=== PATIENT | female | born 1930 | race Caucasian/White ===

== ENCOUNTER 2017-04-24 19:36 | Inpatient (IN) | payer MEDICARE, MEDICAID ==
[~2017-04-24] VITALS: Ht 162.6 cm; Wt 61.7 kg
[2017-04-24] MEDS ORDERED: ALBUTEROL SULFATE 2.5 MG/3 ML NEBU NEB ONE (20:00)
[2017-04-24] MEDS ORDERED: PIPERACILLIN SODIUM/TAZOBACTAM 3.375 G in IV DEXTROSE 5% 50 ML IV ONE (20:00)
[2017-04-24] MEDS ORDERED: AZITHROMYCIN IV 500 MG in IV DEXTROSE 5% 250 ML IV ONE (20:00)
[2017-04-24] MEDS ORDERED: IV NORMAL SALINE 500 ML BAG IV ONE (20:00)
[2017-04-24 20:05] LABS: BASOPHILS % (AUTO) 0.4 % (0.0-2.0); EOSINOPHILS # (AUTO) 0.3 K/uL (0.0-0.7); EOSINOPHILS % (AUTO) 2.6 % (0.0-7.0); HEMATOCRIT 34.4 % (37-47); HEMOGLOBIN 11.2 G/DL (12.0-16.0); LYMPHOCYTES # (AUTO) 1.7 K/UL (0.8-4.8); LYMPHOCYTES % (AUTO) 14.9 % (20.5-51.5); MEAN CORPUSCULAR HEMOGLOBIN 28.7 UUG (27.0-31.0); MEAN CORPUSCULAR HGB CONC 33 g/dL (32.0-37.0); MEAN CORPUSCULAR VOLUME 87.9 FL (81.0-99.0); MONOCYTES % (AUTO) 8.5 % (0.0-11.0); NEUTROPHILS # (AUTO) 8.2 K/UL (1.8-8.9); NEUTROPHILS % (AUTO) 73.6 % (38.5-71.5); PLATELET COUNT (AUTO) 279 K/UL (150-450); RED BLOOD CELL COUNT(AUTO) 3.92 MIL/UL (4.2-5.4); WHITE BLOOD COUNT (AUTO) 11.2 K/UL (4.0-11.2)
--- NOTE | 2017-04-24 20:05 | NUR ---
Pt biba from facility for evaluation for pna. Pt changed into gown and placed on monitor. Pt ST. Pt tachypnic and requires 2L NC to maintain O2 sats > 95%. Lungs diminished in bases with wheezes noted to upper. Pt intermittely yelling out due to pain. Dr. Alvarado at bedside. IV established, labs drawn and sent. Fluid bolus started.
[2017-04-24] MEDS ORDERED: CALC500T3 PO (20:07)
[2017-04-24] MEDS ORDERED: VIT1CAPS9 PO (20:07)
[2017-04-24] MEDS ORDERED: CHOL3000 PO (20:07)
[2017-04-24] MEDS ORDERED: MULT1TAB11 PO (20:07)
[2017-04-24] MEDS ORDERED: DOCU-141 PO (20:07)
[2017-04-24] MEDS ORDERED: ESCI5TAB PO (20:07)
[2017-04-24] MEDS ORDERED: LISI-607 PO (20:07)
[2017-04-24] MEDS ORDERED: AMIN30LI27 PO (20:07)
[2017-04-24] MEDS ORDERED: PRAV20TA PO (20:07)
[2017-04-24] MEDS ORDERED: ACET-73 PO (20:07)
[2017-04-24] MEDS ORDERED: ALEN70TA3 PO (20:07)
[2017-04-24] MEDS ORDERED: IPRA3AMP IH ×2 (20:07)
[2017-04-24] MEDS ORDERED: ROPI1TAB2 PO (20:07)
[2017-04-24] MEDS ORDERED: MIRT15TA PO (20:07)
[2017-04-24] MEDS ORDERED: RIVA1PAT TD (20:07)
[2017-04-24] MEDS ORDERED: TRAM50TA2 PO (20:07)
[2017-04-24] MEDS ORDERED: MAG355OR32 PO (20:07)
[2017-04-24] MEDS ORDERED: PANT20TA2 PO (20:07)
[2017-04-24] MEDS ORDERED: CYAN10009 PO (20:07)
[2017-04-24] MEDS ORDERED: PIPERACILLIN/TAZOBACTAM/D5W 50 ML IV ONE (20:14)
[2017-04-24 20:15] LABS: CARBON DIOXIDE 26 mmol/L (21-32); CHLORIDE 99 mmol/L (98-107); CREATININE 1.3 mg/dL (0.6-1.3); POTASSIUM 5.9 mmol/L (3.5-5.1); UREA NITROGEN, BLOOD 49 mg/dL (7-18)
[2017-04-24] MEDS ORDERED: MORPHINE SULFATE 4 MG/1 ML DISP.SYRIN IV ONE (20:15)
[2017-04-24] MEDS ORDERED: HALOPERIDOL LACTATE 5 MG/1 ML VIAL IV ONE (20:15)
[2017-04-24] MEDS ORDERED: ALBUTEROL SULFATE 2.5 MG/3 ML NEBU ONE (20:21)
[2017-04-24 20:25] LABS: GLUCOSE 322 mg/dL (74-106)
--- NOTE | 2017-04-24 20:25 | NUR ---
Pt medicated for her discomfort. Will monitor for the effects of the medication. Pt repositioned for comfort. Family remains at bedside.
[2017-04-24 20:28] LABS: ALANINE AMINOTRANSFERASE 41 U/L (14-59); ALKALINE PHOSPHATASE 104 U/L (50-136); ASPARTATE AMINOTRANSFERASE 22 U/L (15-37); BILIRUBIN,DIRECT 0.1 mg/dL (0.0-0.2); BILIRUBIN,TOTAL 0.5 mg/dL (0.2-1.0); TOTAL PROTEIN, SERUM 7.4 g/dL (6.4-8.2)
[2017-04-24] MEDS ORDERED: IV NORMAL SALINE 1000 ML BAG IV ONE (20:30)
[2017-04-24] MEDS ORDERED: MORPHINE SULFATE 10 MG/1 ML DISP.SYRIN ONE (20:30)
[2017-04-24] MEDS ORDERED: HALOPERIDOL LACTATE 5 MG/1 ML VIAL ONE (20:33)
[2017-04-24] MEDS ORDERED: AZITHROMYCIN 500 MG VIAL IV ONE (20:45)
--- NOTE | 2017-04-24 20:45 | NUR ---
First ABT infusion completed, no adverse reaction noted. Second ABT infusion started. Will monitor for effects of medication. Pain appears to have improved with medications. Pt no longer moaning or yelling out. Pt no longer restless. Resting in position of comfort for self. Daughter remains at bedside.
[2017-04-24] MEDS ORDERED: IOHEXOL 350 100 ML INFUS..BTL ONE (21:40)
[2017-04-24] MEDS ORDERED: NORMAL SALINE FLUSH 10 ML DISP.SYRIN ONE (21:40)
[2017-04-24] MEDS ORDERED: IV NORMAL SALINE 250 ML IV ONE (21:41)
--- NOTE | 2017-04-24 21:50 | NUR ---
Second ABT infusion completed, no adverse reactions noted. Awaiting CT.
--- NOTE | 2017-04-24 22:10 | NUR ---
Pt to CT via enid
--- NOTE | 2017-04-24 22:30 | NUR ---
Pt returned from CT via gurney. Fluid bolus completed. Pt resting in position of comfort for self. Family at bedside.
[2017-04-24] MEDS ORDERED: ASPIRIN 81 MG TAB.CHEW PO ONE (23:15)
[2017-04-24] MEDS ORDERED: NITROGLYCERIN OINT 1 GM PACKET TP ONE ×2 (23:15→23:44)
[2017-04-24] MEDS ORDERED: RACEPINEPHRINE HCL 2.25% 0.5 ML NEBU NEB ONE (23:30)
--- NOTE | 2017-04-24 23:30 | NUR ---
Dr. Holman paged for Dr. Alvarado
--- NOTE | 2017-04-24 23:40 | NUR ---
RT at bedside for breathing treatment for increased wheezing noted
[2017-04-24] MEDS ORDERED: ASPIRIN 81 MG TAB.CHEW ONE (23:44)
[2017-04-24] MEDS ORDERED: RACEPINEPHRINE HCL 2.25% 0.5 ML NEBU ONE (23:47)
--- NOTE | 2017-04-24 23:51 | NUR ---
Dr. Alvarado spoke with Dr. Holman
[2017-04-25] VITALS (9 sets, daily range): BP systolic 101–136; BP diastolic 47–92
--- NOTE | 2017-04-25 00:07 | NUR ---
Suctioning done by RT. Possible food removed by suctioning.
[2017-04-25] MEDS ORDERED: ALBUTEROL SULFATE 2.5 MG/ 0.5 ML NEBU NEB ONE (00:15)
[2017-04-25] MEDS ORDERED: ALBUTEROL SULFATE 2.5 MG/3 ML NEBU ONE ×2 (00:23→00:32)
--- NOTE | 2017-04-25 00:25 | NUR ---
Dr. Alvarado spoke with Dr. Ontiveros for pulmonary consult.
--- NOTE | 2017-04-25 00:35 | NUR ---
Report called to DIOR Robin. Preparing to transfer pt to the floor.
--- NOTE | 2017-04-25 01:16 | NUR ---
received fROM ER , from [facility] .dx; of sepsis.patient confused unable to given information . admission assessment done and admission data collected from chart . called vinh huang for orders . connected patient to monitor and oriented with equipment . no respiratory distress noted breathing even and unlabored .hob up. Otero catheter inserted and done aseptically .fax medication orders to pharmacy . no belongings noted
[2017-04-25] MEDS ORDERED: IV NS 1000 ML 1,000 ML IV ONE ×2 (01:45→02:30)
[2017-04-25] MEDS ORDERED: CHOLECALCIFEROL 1,000 UNIT TABLET PO SCH ×2 (02:00→09:00)
[2017-04-25] MEDS ORDERED: ENOXAPARIN SODIUM 40 MG/0.4 ML DISP.SYRIN SQ SCH (02:00)
[2017-04-25] MEDS ORDERED: ONDANSETRON 4 MG/2 ML VIAL IV PRN (02:00)
[2017-04-25] MEDS ORDERED: ENOXAPARIN SODIUM 40 MG/0.4 ML DISP.SYRIN SQ ONE (03:24)
[2017-04-25] MEDS ORDERED: PIPERACILLIN/TAZOBACTAM/D5W 3.375 G in PREMIXED 1 EACH IV SCH (04:00)
--- NOTE | 2017-04-25 04:30 | NUR ---
RECD PT FR CCU VIA BED,PT AWAKE, ALERT X2,IN NO ACUTE RESP DISTRESS, IV SITE ON RT ARM INTACT AND NO SSX OF INFILTRATION, IV FLUIDS INFUSING FAIRLY WELL.O2@ 3L/MIN VIA NC , HOB UP 30 DEGREES, RAILS UP , BED IN LOW POSITION. CALL LITE W/I REACH.KEPT CLEAN AND COMFORTABLE.
[2017-04-25] MEDS ORDERED: PIPERACILLIN/TAZOBACTAM/D5W 50 ML IV ONE (05:27)
--- NOTE | 2017-04-25 06:20 | NUR ---
RESTING QUIETLY IN BED, IN NO ACUTE DISTRESS, TELE READING SINUS TACH 105-110.NO COMPLAINTS OF PAIN PRESENTED.
--- NOTE | 2017-04-25 06:22 | NUR ---
F/C PATENT AND INTACT DRAINING TO IRMA URINE.
--- NOTE | 2017-04-25 07:49 | NUR ---
PT IS WHEEZING, PAGED DR REDMOND X2, AWAITING RESPONSE.
--- NOTE | 2017-04-25 07:52 | NUR ---
PER DR. REDMOND PUT IN ORDER FOR BREATHING TREATMENT SCHEDULED Q4H ALBUTEROL AND ATROPINE, ORDER NOTED CARRIED OUT
[2017-04-25] MEDS: ALBUTEROL SULFATE 2.5 MG/ 0.5 ML NEBU NEB SCH ×5 (08:00→22:30)
[2017-04-25] MEDS ORDERED: VANCOMYCIN IV 1 G in PREMIXED 0 EACH IV ONE (08:00)
[2017-04-25] MEDS: Z GUARD REMEDY PASTE 57 GM TUBE TOP SCH ×2 (08:11→20:48)
[2017-04-25 08:18] LABS: BASOPHILS % (AUTO) 0.2 % (0.0-2.0); EOSINOPHILS # (AUTO) 0.2 K/uL (0.0-0.7); EOSINOPHILS % (AUTO) 2.5 % (0.0-7.0); HEMATOCRIT 28.1 % (31.2-41.9); HEMOGLOBIN 9.7 g/dL (10.9-14.3); LYMPHOCYTES # (AUTO) 1.4 K/uL (20.0-40.0); LYMPHOCYTES % (AUTO) 14.4 % (20.5-51.5); MEAN CORPUSCULAR HEMOGLOBIN 30.8 uug (24.7-32.8); MEAN CORPUSCULAR HGB CONC 35 g/dL (32.3-35.6); MEAN CORPUSCULAR VOLUME 88.9 fL (75.5-95.3); MONOCYTES # (AUTO) 0.9 K/uL (2.0-10.0); MONOCYTES % (AUTO) 9.5 % (0.0-11.0); NEUTROPHILS % (AUTO) 73.4 % (38.5-71.5); PLATELET COUNT (AUTO) 189 K/uL (179-408); RED BLOOD CELL COUNT(AUTO) 3.16 MIL/uL (3.63-4.92); WHITE BLOOD COUNT (AUTO) 9.6 K/uL (3.8-11.8)
[2017-04-25 08:23] LABS: ALANINE AMINOTRANSFERASE 34 U/L (14-59); ALKALINE PHOSPHATASE 80 U/L (50-136); ASPARTATE AMINOTRANSFERASE 21 U/L (15-37); BILIRUBIN,TOTAL 0.7 mg/dL (0.2-1.0); CARBON DIOXIDE 22 mmol/L (21-32); CHLORIDE 107 mmol/L (98-107); CREATININE 1.2 mg/dL (0.6-1.3); GLUCOSE 210 mg/dL (74-106); MAGNESIUM 1.9 mg/dL (1.8-2.4); PHOSPHOROUS 3.2 mg/dL (2.5-4.9); POTASSIUM 4.9 mmol/L (3.5-5.1); TOTAL PROTEIN, SERUM 6.2 g/dL (6.4-8.2); UREA NITROGEN, BLOOD 36 mg/dL (7-18)
[2017-04-25] MEDS: IPRATROPIUM BROMIDE 0.5 MG/2.5 ML NEBU NEB SCH ×5 (08:39→22:30)
[2017-04-25] MEDS ORDERED: MAG HYDROX/AL HYDROX/SIMETH 30 ML LIQUID UDC PO PRN (08:45)
[2017-04-25] MEDS ORDERED: ACETAMINOPHEN ES 500 MG TABLET PO PRN (08:45)
[2017-04-25] MEDS ORDERED: MISCELLANEOUS MED XX PRN ×2 (08:45)
[2017-04-25] MEDS ORDERED: TRAMADOL HCL 50 MG TABLET PO PRN (08:45)
[2017-04-25] MEDS ORDERED: FUROSEMIDE 20 MG/2 ML VIAL IV ONE (09:00)
[2017-04-25] MEDS: DOCUSATE SODIUM 100 MG CAPSULE PO SCH ×2 (09:00→16:12)
[2017-04-25] MEDS: LISINOPRIL 5 MG TABLET PO SCH (09:00)
[2017-04-25] MEDS: CYANOCOBALAMIN 1,000 MCG TABLET PO SCH (09:35)
[2017-04-25] MEDS: RIVASTIGMINE 4.6 MG PATCH TD SCH (09:35)
[2017-04-25] MEDS: MULTIVIT, IRON, MIN NO. 8, FA TABLET PO SCH (09:35)
[2017-04-25] MEDS: methylPREDNISolone SOD SUCC 125 MG/2 ML VIAL IV SCH ×3 (09:36→21:16)
[2017-04-25] MEDS: ACETAMINOPHEN 325 MG TABLET PO PRN (09:36)
[2017-04-25] MEDS: CALCIUM CARBONATE 500 MG TABLET PO SCH (09:36)
[2017-04-25] MEDS: PIPERACILLIN/TAZOBACTAM/D5W 2.25 G in PREMIXED 1 EACH IV SCH ×3 (11:56→23:57)
--- NOTE | 2017-04-25 15:22 | NUR ---
PT'S FAMILY WANTS TO TALK TO DR. REDMOND, PAGED DR TO TALK TO THE FAMILY, AWAITING RESPONSE
[2017-04-25] MEDS: PROTEIN SUPPLEMENT (PROSTAT) 30 ML LIQUID PO SCH (16:15)
--- NOTE | 2017-04-25 16:38 | NUR ---
Clinical Pharmacy Note: Vancomycin Pharmacy to Dose Subjective: To start vanco in this 86 y/o female for sepsis unknown source Objective: height 162cm weight 68 kg BUN 49 Scr 1.3 Wbc 11.2 temp 98.8 Assessment/Plan Dosed one gram vanco today at 0800. As renal function may not be stable and due to advanced age, will dose per level for now. random level ordered with am labs tomorrow. will check level and re-dose as needed. Will follow
--- NOTE | 2017-04-25 19:25 | NUR ---
PT IS LAYING IN BED COMFORTABLY. NO S/S OF RESPIRATORY DISTRESS NOTED. NO PAIN NOTED. IV INTACT/PATENT. ALL SAFETY NEEDS ARE MET.
--- NOTE | 2017-04-25 20:00 | NUR ---
PATIENT AWAKE, CONFUSED,FAMILY AT BEDSIDE,NO SOB NOTED, PATIENT RECEIVED BREATHING TREATMENT BY R.T. WITH GOOD RESULT, NO CONGESTION NOTED,STABLE ON O2 3L/M VIA N/C, ASPIRATION PRECAUTIONS, HOB ELEVATED,NEEDS ATTENDED.
[2017-04-25] MEDS: ESCITALOPRAM OXALATE 10 MG TABLET PO SCH (20:47)
[2017-04-25] MEDS: MIRTAZAPINE 15 MG TABLET PO SCH (20:48)
[2017-04-25] MEDS: ropiniROLE 1 MG TABLET PO SCH (20:48)
[2017-04-25] MEDS: ENOXAPARIN SODIUM 40 MG/0.4 ML DISP.SYRIN SQ SCH (20:51)
[2017-04-25] MEDS ORDERED: ATORVASTATIN 10 MG TABLET PO SCH (21:00)
--- NOTE | 2017-04-25 21:15 | NUR ---
patient was seen by Dr. Woody .for cardiology consult,Sinus tachycardia on monitor.
[2017-04-26] VITALS: BP 117/59
--- NOTE | 2017-04-26 00:05 | NUR ---
patient is asleep ,afebrile,no wheezing received breathing treatment,no distress.
[2017-04-26] MEDS: IPRATROPIUM BROMIDE 0.5 MG/2.5 ML NEBU NEB SCH ×6 (02:30→23:10)
[2017-04-26] MEDS: ALBUTEROL SULFATE 2.5 MG/ 0.5 ML NEBU NEB SCH ×6 (02:30→23:10)
[2017-04-26 04:00] VITALS: BP 117/54
--- NOTE | 2017-04-26 05:50 | NUR ---
patient slept well, vital signs stable,no sob,o2 sat 98% on o2 3l/m,decrease o2 to 2l/m via n/c,f/c drainage clear yellowish urine.
[2017-04-26] MEDS: PIPERACILLIN/TAZOBACTAM/D5W 2.25 G in PREMIXED 1 EACH IV SCH ×3 (05:56→17:08)
[2017-04-26] MEDS: methylPREDNISolone SOD SUCC 125 MG/2 ML VIAL IV SCH ×2 (05:56→20:09)
[2017-04-26] MEDS: PANTOPRAZOLE SODIUM 40 MG TABLET.DR PO SCH (05:56)
--- NOTE | 2017-04-26 08:00 | NUR ---
AWAKE ALERT AND VERBALLY RESPONSIVE BUT CONFUSED X3, DAUGHTER AT BEDSIDE. CONTINUE WITH NINFA MONITORING, SR/ST ON MONITOR
[2017-04-26 08:02] VITALS: BP 121/53
[2017-04-26] MEDS: CALCIUM CARBONATE 500 MG TABLET PO SCH (08:24)
[2017-04-26] MEDS: BETA CAROTENE/VIT C & E/MIN TABLET PO SCH (08:24)
[2017-04-26] MEDS: MULTIVIT, IRON, MIN NO. 8, FA TABLET PO SCH (08:24)
[2017-04-26] MEDS: RIVASTIGMINE 4.6 MG PATCH TD SCH (08:24)
[2017-04-26] MEDS: DOCUSATE SODIUM 100 MG CAPSULE PO SCH ×2 (08:24→17:07)
[2017-04-26] MEDS: PROTEIN SUPPLEMENT (PROSTAT) 30 ML LIQUID PO SCH ×2 (08:24→17:08)
[2017-04-26] MEDS: CYANOCOBALAMIN 1,000 MCG TABLET PO SCH (08:24)
[2017-04-26] MEDS: LISINOPRIL 5 MG TABLET PO SCH (08:25)
[2017-04-26] MEDS: Z GUARD REMEDY PASTE 57 GM TUBE TOP SCH ×2 (08:26→20:13)
[2017-04-26 09:00] VITALS: BP 129/56
[2017-04-26] MEDS ORDERED: ALENDRONATE SODIUM 70 MG TABLET PO SCH (09:00)
[2017-04-26] MEDS ORDERED: VANCOMYCIN IV 750 MG in IV DEXTROSE 5% 250 ML IV SCH (10:00)
--- NOTE | 2017-04-26 12:00 | NUR ---
SEEN BY DR MACK SPOKE WITH DAUGHTER REGARDING PLAN OF CARE SEE NOTES
[2017-04-26] MEDS: ACETAMINOPHEN 325 MG TABLET PO PRN (14:44)
--- NOTE | 2017-04-26 14:57 | NUR ---
Clinical Pharmacy Note: Vancomycin Pharmacy to Dose Subjective: To continue vanco in this 86 y/o female for sepsis unknown source Objective: height 162cm weight 68 kg BUN 36 Scr 1.2 Wbc 9.6 temp 98.9 random with am labs today 8.7 Assessment/Plan As renal function appears stable for now and random this am ok, will start schedule or 750mg q27hr for estimated trough of 15.15. First dose today at 1000. Will check trough before 4ths cheduled dose (not ordered yet). Will dose per level again if renal function to become unstable. Will follow
[2017-04-26 15:16] VITALS: BP 120/51
--- NOTE | 2017-04-26 17:52 | NUR ---
SEEN BY DR MIRELES CHANGED STATUS TO TELE
--- NOTE | 2017-04-26 19:00 | NUR ---
RECD PT IN BED,AWAKE,ALERT X2, DAUGHTER AT BEDSIDE,O2@ 2L/MIN VIA NC.NO ACUTE DISTRESS NOTED.NEEDS ATTENDED TO,REMAINS ON A SPECIALTY MATTRESS,SKIN CLEAR AND INTACT, REPOSITIONED FOR COMFORT.
[2017-04-26 20:00] VITALS: BP 145/47
[2017-04-26] MEDS: LACTOBACILLUS RHAMNOSUS GG 1 EACH CAPSULE PO SCH (20:09)
[2017-04-26] MEDS: ESCITALOPRAM OXALATE 10 MG TABLET PO SCH (20:10)
[2017-04-26] MEDS: MIRTAZAPINE 15 MG TABLET PO SCH (20:11)
[2017-04-26] MEDS: ropiniROLE 1 MG TABLET PO SCH (20:11)
[2017-04-26] MEDS: ENOXAPARIN SODIUM 40 MG/0.4 ML DISP.SYRIN SQ SCH (20:13)
[2017-04-26] MEDS: TRAMADOL HCL 50 MG TABLET PO PRN ×2 (20:15→21:56)
--- NOTE | 2017-04-26 21:58 | NUR ---
MEDICATED W TRAMADOL FOR HEADACHE LEVEL 8, SCREAMING INTERMITTENTLY, SCREAMING INTERMITTENTLY, ALLOWED PT TO VERBALIZE FEELINGS AND PROVIDED ACTIVE LISTENING.SLEPT ON AND OFF.
[2017-04-27] MEDS: TRAMADOL HCL 50 MG TABLET PO PRN (00:21)
[2017-04-27 00:22] VITALS: BP 132/65
[2017-04-27] MEDS: PIPERACILLIN/TAZOBACTAM/D5W 2.25 G in PREMIXED 1 EACH IV SCH ×4 (00:24→17:03)
[2017-04-27] MEDS: ALBUTEROL SULFATE 2.5 MG/ 0.5 ML NEBU NEB SCH ×6 (02:35→23:26)
[2017-04-27] MEDS: IPRATROPIUM BROMIDE 0.5 MG/2.5 ML NEBU NEB SCH ×6 (02:35→23:26)
[2017-04-27 05:19] VITALS: BP 128/47
[2017-04-27] MEDS: ACETAMINOPHEN 325 MG TABLET PO PRN (05:32)
[2017-04-27] MEDS: PANTOPRAZOLE SODIUM 40 MG TABLET.DR PO SCH (05:51)
--- NOTE | 2017-04-27 06:10 | NUR ---
AM CARE RENDERED, KEPT COOL AND COMFORTABLE,TYLENOL 650 MG GIVEN ,FOR MILD GEN PAIN AND FEVER.NOTHING UNUSUAL NOTED.
[2017-04-27 07:39] LABS: BASOPHILS % (AUTO) 0.1 % (0.0-2.0); EOSINOPHILS % (AUTO) 0.1 % (0.0-7.0); HEMATOCRIT 27.8 % (31.2-41.9); HEMOGLOBIN 9.3 g/dL (10.9-14.3); LYMPHOCYTES # (AUTO) 1.4 K/uL (20.0-40.0); LYMPHOCYTES % (AUTO) 14.8 % (20.5-51.5); MEAN CORPUSCULAR HEMOGLOBIN 30.1 uug (24.7-32.8); MEAN CORPUSCULAR HGB CONC 34 g/dL (32.3-35.6); MEAN CORPUSCULAR VOLUME 89.6 fL (75.5-95.3); MONOCYTES # (AUTO) 0.7 K/uL (2.0-10.0); MONOCYTES % (AUTO) 7.6 % (0.0-11.0); NEUTROPHILS # (AUTO) 7.3 K/uL (1.8-8.9); NEUTROPHILS % (AUTO) 77.4 % (38.5-71.5); PLATELET COUNT (AUTO) 179 K/uL (179-408); RED BLOOD CELL COUNT(AUTO) 3.11 MIL/uL (3.63-4.92); WHITE BLOOD COUNT (AUTO) 9.4 K/uL (3.8-11.8)
--- NOTE | 2017-04-27 07:39 | NUR ---
RECEIVED FROM NOC SHIFT; A/O X2-3. SLEEPY BUT EASILY AROUSABLE. NO S/S OF ANY ACUTE DISTRESS NOTED. CONT ON PUREE WITH THICKENED LIQUID, RESP UNLAB AND CONT ON RT TX PER MD ORDER. CONT ON TELE MONITORING AT THIS SR. WILL CONT TO MONITOR AT THIS TIME
[2017-04-27 07:45] LABS: CARBON DIOXIDE 26 mmol/L (21-32); CHLORIDE 111 mmol/L (98-107); CREATININE 1.1 mg/dL (0.6-1.3); MAGNESIUM 2.3 mg/dL (1.8-2.4); PHOSPHOROUS 2.6 mg/dL (2.5-4.9); POTASSIUM 4.1 mmol/L (3.5-5.1); UREA NITROGEN, BLOOD 34 mg/dL (7-18)
[2017-04-27 08:00] VITALS: BP 139/55
[2017-04-27] MEDS: PROTEIN SUPPLEMENT (PROSTAT) 30 ML LIQUID PO SCH ×2 (08:00→17:03)
[2017-04-27 08:38] LABS: GLUCOSE 337 mg/dL (74-106)
[2017-04-27] MEDS: CYANOCOBALAMIN 1,000 MCG TABLET PO SCH (09:47)
[2017-04-27] MEDS: DOCUSATE SODIUM 100 MG CAPSULE PO SCH ×2 (09:48→17:03)
[2017-04-27] MEDS: Z GUARD REMEDY PASTE 57 GM TUBE TOP SCH ×2 (09:48→20:46)
[2017-04-27] MEDS: RIVASTIGMINE 4.6 MG PATCH TD SCH (09:48)
[2017-04-27] MEDS: BETA CAROTENE/VIT C & E/MIN TABLET PO SCH (09:49)
[2017-04-27] MEDS: LACTOBACILLUS RHAMNOSUS GG 1 EACH CAPSULE PO SCH ×2 (09:49→20:42)
[2017-04-27] MEDS: MULTIVIT, IRON, MIN NO. 8, FA TABLET PO SCH (09:49)
[2017-04-27] MEDS: CALCIUM CARBONATE 500 MG TABLET PO SCH (09:49)
[2017-04-27] MEDS: LISINOPRIL 5 MG TABLET PO SCH (09:50)
[2017-04-27] MEDS: methylPREDNISolone SOD SUCC 125 MG/2 ML VIAL IV SCH ×2 (09:51→20:41)
--- NOTE | 2017-04-27 10:30 | NUR ---
TELE D/C PER MD ORDER. DAUGHTER JIMY AT BEDSIDE PROVIDING ADDITIONAL EMOTION SUPPORT
[2017-04-27 11:25] VITALS: BP 119/52
[2017-04-27] MEDS: VANCOMYCIN IV 750 MG in IV DEXTROSE 5% 250 ML IV SCH (12:16)
--- NOTE | 2017-04-27 12:23 | NUR ---
Clinical Pharmacy Note: Vancomycin Pharmacy to Dose Subjective: To continue vanco in this 86 y/o female for sepsis unknown source Objective: height 162cm weight 65 kg BUN 34 Scr 1.1 Wbc 9.4 temp 99.6 Assessment/Plan Since srcr has decreased, will change dose from vanco 750mg IVPB q27hr to vanco 750mg IVPB q25h for estimated trough of 15.5mgc/ml. Second dose is due today at 1100. Will check trough before 4th scheduled dose (not ordered yet). Will dose per level again if renal function to become unstable. Will follow
--- NOTE | 2017-04-27 14:00 | NUR ---
RECEIVED PATIENT AND REPORT FROM REGISTRY NURSE. ASSIGNMENT CHANGED AT THIS TIME, TAKING OVER THE PATIENT AT THIS TIME. NO EVIDENCE OF DISTRESS NOTED, BED IN LOW POSITION, SIDE RAILS UP X2.
--- NOTE | 2017-04-27 14:00 | NUR ---
PATIENT CARE TRANSFER TO ANOTHER NURSE; ANURAG RN. NO S/S OF ANY ACUTE DISTRESS NOTED AT THE TIME OF NURSE CHANGE.
[2017-04-27 15:30] VITALS: BP 142/64
--- NOTE | 2017-04-27 18:40 | NUR ---
PATIENT IN BED AWAKE, NO EVIDENCE OF DISTRESS NOTED, BED IN LOW POSITION, SIDE RAILS UP X2. FAMILY AT BEDSIDE. ALL NEEDS MET.
[2017-04-27 20:00] VITALS: BP 135/47
[2017-04-27] MEDS: ropiniROLE 1 MG TABLET PO SCH (20:42)
[2017-04-27] MEDS: MIRTAZAPINE 15 MG TABLET PO SCH (20:42)
[2017-04-27] MEDS: ESCITALOPRAM OXALATE 10 MG TABLET PO SCH (20:42)
[2017-04-27] MEDS: ENOXAPARIN SODIUM 40 MG/0.4 ML DISP.SYRIN SQ SCH (20:44)
[2017-04-28] MEDS: PIPERACILLIN/TAZOBACTAM/D5W 2.25 G in PREMIXED 1 EACH IV SCH ×4 (00:32→17:29)
[2017-04-28] MEDS: ALBUTEROL SULFATE 2.5 MG/ 0.5 ML NEBU NEB SCH ×6 (03:21→22:45)
[2017-04-28] MEDS: IPRATROPIUM BROMIDE 0.5 MG/2.5 ML NEBU NEB SCH ×6 (03:21→22:45)
[2017-04-28 04:49] VITALS: BP 132/49
[2017-04-28 07:06] LABS: BASOPHILS % (AUTO) 0.2 % (0.0-2.0); EOSINOPHILS % (AUTO) 0.2 % (0.0-7.0); HEMATOCRIT 27.5 % (37-47); HEMOGLOBIN 9.3 G/DL (12.0-16.0); LYMPHOCYTES # (AUTO) 0.7 K/UL (0.8-4.8); LYMPHOCYTES % (AUTO) 8.2 % (20.5-51.5); MEAN CORPUSCULAR HEMOGLOBIN 29.6 UUG (27.0-31.0); MEAN CORPUSCULAR HGB CONC 34 g/dL (32.0-37.0); MEAN CORPUSCULAR VOLUME 88.3 FL (81.0-99.0); MONOCYTES # (AUTO) 0.3 K/UL (0.1-1.30); MONOCYTES % (AUTO) 3.3 % (0.0-11.0); NEUTROPHILS # (AUTO) 7.2 K/UL (1.8-8.9); NEUTROPHILS % (AUTO) 88.1 % (38.5-71.5); PLATELET COUNT (AUTO) 181 K/UL (150-450); RED BLOOD CELL COUNT(AUTO) 3.12 MIL/UL (4.2-5.4); WHITE BLOOD COUNT (AUTO) 8.2 K/UL (4.0-11.2)
[2017-04-28 07:30] LABS: CARBON DIOXIDE 26 mmol/L (21-32); CHLORIDE 107 mmol/L (98-107); CREATININE 0.8 mg/dL (0.6-1.3); MAGNESIUM 2.4 mg/dL (1.8-2.4); PHOSPHOROUS 3.2 mg/dL (2.5-4.9); POTASSIUM 4.5 mmol/L (3.5-5.1); UREA NITROGEN, BLOOD 31 mg/dL (7-18)
[2017-04-28] MEDS: PROTEIN SUPPLEMENT (PROSTAT) 30 ML LIQUID PO SCH ×2 (08:11→16:34)
[2017-04-28 08:43] LABS: GLUCOSE 408 mg/dL (74-106)
[2017-04-28] MEDS: PANTOPRAZOLE SODIUM 40 MG TABLET.DR PO SCH (08:44)
[2017-04-28] MEDS: methylPREDNISolone SOD SUCC 125 MG/2 ML VIAL IV SCH (08:44)
[2017-04-28] MEDS: CALCIUM CARBONATE 500 MG TABLET PO SCH (08:44)
[2017-04-28] MEDS: MULTIVIT, IRON, MIN NO. 8, FA TABLET PO SCH (08:44)
[2017-04-28] MEDS: DOCUSATE SODIUM 100 MG CAPSULE PO SCH ×2 (08:44→16:34)
[2017-04-28] MEDS: CYANOCOBALAMIN 1,000 MCG TABLET PO SCH (08:44)
[2017-04-28] MEDS: BETA CAROTENE/VIT C & E/MIN TABLET PO SCH (08:44)
[2017-04-28] MEDS: LACTOBACILLUS RHAMNOSUS GG 1 EACH CAPSULE PO SCH ×2 (08:44→21:00)
[2017-04-28] MEDS: LISINOPRIL 5 MG TABLET PO SCH (08:45)
[2017-04-28] MEDS: Z GUARD REMEDY PASTE 57 GM TUBE TOP SCH ×2 (08:46→21:56)
[2017-04-28] MEDS: RIVASTIGMINE 4.6 MG PATCH TD SCH (08:46)
--- NOTE | 2017-04-28 09:00 | NUR ---
BLOOD GLUCOSE REPORT RECEIVED FROM THE LAB IS 408 DR REDMOND AWARE WITH NO NEW ORDERS AT THIS TIME.
--- NOTE | 2017-04-28 10:25 | NUR ---
PATIENT SEEN AND EXAMINED BY DR GLEASON WITH NEW ORDERS AND NOTED.
--- NOTE | 2017-04-28 11:38 | NUR ---
DR REDMOND HERE TO SEE PATIENT AWARE THAT SHE STILL COUGHS ON AND OFF ASKED HIM IF PATIENT SHOULD HAVE A VIDEO SWALLOW TEST STATED OKAY WILL SEE PATIENT DR REDMOND IS IN THE PATIENTS ROOM AT THE MOMENT TALKING TO THE PATIENTS DAUGHTER MARTINA.
[2017-04-28 11:45] VITALS: BP 123/55
[2017-04-28] MEDS: VANCOMYCIN IV 750 MG in IV DEXTROSE 5% 250 ML IV SCH (12:14)
--- NOTE | 2017-04-28 12:23 | NUR ---
HYLTON CATH REMOVED ORDERED AND WILL OBSERVE VOIDING.
--- NOTE | 2017-04-28 12:47 | NUR ---
WOUND CARE CONSULT: PT PRESENTS WITH LEFT HEEL PURPLE INTACT AREA. PT IS INCONTINENT. CURRENT JOSÉ SCORE IS 15. PT ON FIRST STEP MATTRESS. ALL SKIN PROTECTION MEASURES IN PLACE. DISCUSSED WITH NURSING STAFF. WILL SEE PRN. NARANJO IN AGREEMENT WITH PLAN OF CARE. Addendum: 04/28/17 at 1251 by DANNY MACHADO RN Amended: Links added.
--- NOTE | 2017-04-28 14:00 | NUR ---
PATIENT SEEN AND EXAMINED BY SLT AND SHE STATED THAT THE VIDEO SWALLOW WILL BE DONE ON THE PATIENT TOMORROW PATIENTS DAUGHTER MARTINA AWARE.
[2017-04-28 16:30] VITALS: BP 141/61
--- NOTE | 2017-04-28 16:37 | NUR ---
Clinical Pharmacy Note: Vancomycin Pharmacy to Dose Subjective: To continue vanco in this 86 y/o female for sepsis unknown source Objective: height 162cm weight 65 kg BUN 31 Scr 0.8 Wbc 8.2 temp 99.7 Assessment/Plan Will continue Vancomycin 750mg IVPB q25hrs for estimated trough of 15.5mgc/ml. Third dose was given today at 1200. Will check trough before 4th scheduled dose (ordered for tomorrow at 1230). Will dose per level again if renal function to become unstable. Will follow
--- NOTE | 2017-04-28 18:45 | NUR ---
PATIENTS DAUGHTER AT THE BEDSIDE AND STATED THAT SHE FED HER MOM SOME FOOD AND SHE WAS THIRSTY SO SHE GAVE HER SOME THICKENED LIQUIDS AND EVER SINCE THEN SHE HAS BEEN WHEEZING AND HAVING DIFFICULTY BREATHING PATIENT EXAMINED AND SHE IS HAVING SOME OBVIOUS SIGNS OF HAVING DIFFICULTY BREATHING SATURATION CHECKED AND ITS 91-% ON IL/M O2 INCREASED TO 2 AND RESPIRATORY THERAPIST CALLED TO COME AND ASSIST AND GIVE HER HHN TX.
--- NOTE | 2017-04-28 18:59 | NUR ---
O2 INCREASED TO 3L/M DR REDMOND NOTIFIED WITH ORDER FOR A STATT CHEST XRAY PATIENTS DAUGHTER IS AT THE BEDSIDE.WILL CONTINUE TO OBSERVE.
--- NOTE | 2017-04-28 19:30 | NUR ---
PT ALERT AWAKE IN ROOM IN NO ACUTE DISTRESS. BP 138/55. DAUGHTER AT BEDSIDE REQUESTING PT NOT TO HAVE ANY PO MEDS AT THIS TIME DUE TO PREVIOUS SWALLOWING ASPIRATION. OXYGEN NOTED 92% ON 2L/MIN. CONTINUE TO MONITOR. 3 SIDE RAILS RAISED.
[2017-04-28 20:23] VITALS: BP 138/55
[2017-04-28] MEDS: MIRTAZAPINE 15 MG TABLET PO SCH (21:00)
[2017-04-28] MEDS ORDERED: methylPREDNISolone SOD SUCC 125 MG/2 ML VIAL IV SCH (21:00)
[2017-04-28] MEDS: ropiniROLE 1 MG TABLET PO SCH (21:00)
[2017-04-28] MEDS: ESCITALOPRAM OXALATE 10 MG TABLET PO SCH (21:00)
[2017-04-28] MEDS: methylPREDNISolone SOD SUCC 40 MG/ML VIAL IV SCH (21:53)
[2017-04-28] MEDS: ENOXAPARIN SODIUM 40 MG/0.4 ML DISP.SYRIN SQ SCH (21:54)
[2017-04-28] MEDS: PIPERACILLIN/TAZOBACTAM/D5W 3.375 G in PREMIXED 1 EACH IV SCH (22:14)
--- NOTE | 2017-04-29 01:00 | NUR ---
Pt asleep in room in no acute distress. No s/s of aspiration reaction noted. No reaction noted to current abx IV therapy at this time. Continue to monitor.
[2017-04-29] MEDS: ALBUTEROL SULFATE 2.5 MG/ 0.5 ML NEBU NEB SCH ×7 (02:31→22:56)
[2017-04-29] MEDS: IPRATROPIUM BROMIDE 0.5 MG/2.5 ML NEBU NEB SCH ×6 (02:31→22:56)
[2017-04-29 04:55] VITALS: BP 164/66
--- NOTE | 2017-04-29 05:00 | NUR ---
Pt is alert awake in no acute distress. No c/o pain or resp distress. No reaction to current abx IV medications. Pt repositioned and 3 side rails raised. Continue to monitor.
[2017-04-29] MEDS: PIPERACILLIN/TAZOBACTAM/D5W 3.375 G in PREMIXED 1 EACH IV SCH ×3 (05:11→21:31)
[2017-04-29] MEDS: PANTOPRAZOLE SODIUM 40 MG TABLET.DR PO SCH (06:32)
--- NOTE | 2017-04-29 06:32 | NUR ---
Routine Protonix PO medication held to prevent aspiration precautions.
[2017-04-29 06:40] LABS: ALANINE AMINOTRANSFERASE 50 U/L (14-59); ALKALINE PHOSPHATASE 65 U/L (50-136); ASPARTATE AMINOTRANSFERASE 18 U/L (15-37); BILIRUBIN,TOTAL 0.4 mg/dL (0.2-1.0); CARBON DIOXIDE 28 mmol/L (21-32); CHLORIDE 106 mmol/L (98-107); CREATININE 0.9 mg/dL (0.6-1.3); MAGNESIUM 2.5 mg/dL (1.8-2.4); PHOSPHOROUS 2.7 mg/dL (2.5-4.9); POTASSIUM 4.1 mmol/L (3.5-5.1); TOTAL PROTEIN, SERUM 6.5 g/dL (6.4-8.2); UREA NITROGEN, BLOOD 28 mg/dL (7-18)
[2017-04-29 06:45] LABS: GLUCOSE 420 mg/dL (74-106)
--- NOTE | 2017-04-29 06:50 | NUR ---
Pt's blood glucose noted 420 and expected due to SoluMedrol. No new orders at this time. Pt's MD aware of expected findings.
[2017-04-29 07:40] LABS: BASOPHILS % (AUTO) 0.1 % (0.0-2.0); HEMATOCRIT 28.2 % (31.2-41.9); HEMOGLOBIN 9.5 g/dL (10.9-14.3); LYMPHOCYTES # (AUTO) 0.9 K/uL (20.0-40.0); LYMPHOCYTES % (AUTO) 9.4 % (20.5-51.5); MEAN CORPUSCULAR HEMOGLOBIN 30.1 uug (24.7-32.8); MEAN CORPUSCULAR HGB CONC 34 g/dL (32.3-35.6); MONOCYTES # (AUTO) 0.8 K/uL (2.0-10.0); MONOCYTES % (AUTO) 8.3 % (0.0-11.0); NEUTROPHILS # (AUTO) 7.9 K/uL (1.8-8.9); NEUTROPHILS % (AUTO) 82.2 % (38.5-71.5); PLATELET COUNT (AUTO) 173 K/uL (179-408); RED BLOOD CELL COUNT(AUTO) 3.16 MIL/uL (3.63-4.92); WHITE BLOOD COUNT (AUTO) 9.7 K/uL (3.8-11.8)
[2017-04-29] MEDS: PROTEIN SUPPLEMENT (PROSTAT) 30 ML LIQUID PO SCH ×2 (08:00→16:52)
[2017-04-29] MEDS ORDERED: DEXTROSE 50% 50 ML DISP.SYRIN IV PRN (08:15)
--- NOTE | 2017-04-29 08:30 | NUR ---
RECEIVED PATIENT IN BED AWAKE ALERT TO SELF SEEMS MIXED UP REMAIN WITH O2 AT 3L/M BY NASAL CANULLA WITH NO SHORTNESS OF BREATH AT THIS TIME.HHN IN PROGRESS NO ACTIVE COUGHING AT THIS TIME PATIENTS DAUGHTER ELECTED FOR PATIENT NOT TO GET HER AM MEDICATIONS BUT I INSISTED ON GIVING HER THE BLOOD PRESSURE MEDICATION WITH APPLE SAUCE AND SOME THICKENED LIQUIDS AND SHE TOLERATED IT WELL.
[2017-04-29] MEDS: BETA CAROTENE/VIT C & E/MIN TABLET PO SCH (09:00)
[2017-04-29] MEDS: MULTIVIT, IRON, MIN NO. 8, FA TABLET PO SCH (09:00)
[2017-04-29] MEDS: LACTOBACILLUS RHAMNOSUS GG 1 EACH CAPSULE PO SCH ×2 (09:00→21:06)
[2017-04-29] MEDS: CALCIUM CARBONATE 500 MG TABLET PO SCH (09:00)
[2017-04-29] MEDS: CYANOCOBALAMIN 1,000 MCG TABLET PO SCH (09:00)
[2017-04-29] MEDS: DOCUSATE SODIUM 100 MG CAPSULE PO SCH ×2 (09:00→16:54)
[2017-04-29] MEDS: RIVASTIGMINE 4.6 MG PATCH TD SCH (09:03)
[2017-04-29] MEDS: methylPREDNISolone SOD SUCC 40 MG/ML VIAL IV SCH (09:04)
[2017-04-29] MEDS: LISINOPRIL 5 MG TABLET PO SCH (09:25)
[2017-04-29] MEDS: Z GUARD REMEDY PASTE 57 GM TUBE TOP SCH ×2 (09:28→21:06)
[2017-04-29 10:29] LABS: LYMPHOCYTES % (MANUAL) 10 % (20-40); METAMYELOCYTES % 1 % (0-1); NEUTROPHILS % (MANUAL) 84 % (42-75)
[2017-04-29 10:30] LABS: MONOCYTES % (MANUAL) 5 % (2-10)
[2017-04-29 11:10] VITALS: BP 142/58
[2017-04-29] MEDS: BLOOD SUGAR DIAGNOSTIC 1 EACH STRIP VI SCH ×3 (11:14→21:06)
[2017-04-29] MEDS: INSULIN REGULAR, HUMAN 300 UNIT/3 ML VIAL SQ PRN ×3 (11:16→21:10)
--- NOTE | 2017-04-29 12:15 | NUR ---
DR GREENE HERE AND SEEN PATIENT AND HE IS AWARE OF ELEVATED BLOOD GLUCOSE WITH NEW ORDERS.PATIENT WILL BE STARTED ON BLOOD SUGAR CHECKS WITH SLIDING SCALE COVERAGE WITH REGULAR INSULIN PATIENTS DAUGHTER HERE AT THE BEDSIDE AND AWARE WILL CONTINUE TO OBSERVE.
[2017-04-29] MEDS ORDERED: BARIUM SULFATE 148 GM SUSP.RECON PO ONE (13:00)
[2017-04-29] MEDS ORDERED: BARIUM SULFATE 240 ML ORAL.SUSP PO ONE (13:00)
--- NOTE | 2017-04-29 13:01 | NUR ---
DR GLEASON HERE TO SEE PATIENT AND HE SPOKE WITH PATIENTS DAUGHTER MARTINA RE POOR DETERIORATING CONDITION.PATIENT IS SCHEDULED FOR VIDEO SWALLOW TEST TODAY SHE IS AGITATED AND RESTLESS REQUESTING FOR WATER FEW DROPS OF JUICE GIVEN DAUGHTER IS AT THE BEDSIDE AT THIS TIME WILL CONTINUE TO OBSERVE.
--- NOTE | 2017-04-29 13:48 | NUR ---
Clinical Pharmacy Note: Vancomycin Pharmacy to Dose Subjective: To continue vanco in this 86 y/o female for sepsis unknown source Objective: height 162cm weight 65 kg BUN 28 Scr 0.9 Wbc 9.7 temp99.4 Vanco trough level: 7.4 Assessment/Plan Since vanco trough level is sub-therapeutic, will change vanco dose to Vancomycin 1000mg IVPB q21hrs for estimated trough of 15mgc/ml. First dose is due today at 1400. Will check trough before 4th scheduled dose (not yet ordered). Will monitor renal function & adjust the dose if needed. will follow up
--- NOTE | 2017-04-29 14:10 | NUR ---
THE SPEECH AND LANGUAGE THERAPIST HERE AND STATED THAT SHE IS WAITING FOR THE RADIOLOGIST FOR THE VIDEO STUDIES TODAY PATIENTS DAUGHTER HERE AND AWARE.
[2017-04-29] MEDS: VANCOMYCIN IV 1 G in PREMIXED 0 EACH IV SCH (14:25)
[2017-04-29 15:35] VITALS: BP 131/60
--- NOTE | 2017-04-29 16:00 | NUR ---
PATIENT PICKED UP BY BED TO RADIOLOGY DEPARTMENT FOR THE VIDEO SWALLOW STUDIES ORDERED WITH HER DAUGHTER FOLLOWING.PATIENT IS CALM AND QUIET AT THIS TIME.
--- NOTE | 2017-04-29 17:00 | NUR ---
PATIENT RETURNED AND PER THE PATIENTS DAUGHTER SHE STATED THAT THE SLT TOLD HER THAT EVERYTHING LOOKS GOOD BUT AWAITING FOR ORDERS MEANWHILE WILL CONTINUE ON PUREED DIET WITH THICKENED LIQUIDS ORDERED.
[2017-04-29] MEDS: predniSONE 20 MG TABLET PO SCH (17:11)
--- NOTE | 2017-04-29 17:39 | NUR ---
STILL NO FINAL ORDER OR NOTES FROM THE SLT OR RADIOLOGIST AT THIS TIME WILL CONTINUE ON CURRENT ORDER OF PURRED AND NECTAR THICK LIQUIDS.
--- NOTE | 2017-04-29 20:00 | NUR ---
RECEIVED PATIENT AWAKE IN BED WITH PRIVATE CAREGIVER AT BEDSIDE. PATIENT IS ALERT TO SELF. NO S/S OF PAIN OR DISCOMFORT. NO FACIAL GRIMACE NOTED. VSS. H/L INTACT AND PATENT. ON O2 2L NC SATING WELL. NO RESP. DISTRESS NOTED. ON AIR MATTRESS. BILATERAL HEELS OFF-LOADED FOR PRESSURE RELIEF. BED ALARM ON. CALL LIGHT IN REACH. ALL NEEDS ATTENDED. WILL CONTINUE TO MONITOR.
[2017-04-29 20:39] VITALS: BP 98/35
[2017-04-29] MEDS: MIRTAZAPINE 15 MG TABLET PO SCH (21:06)
[2017-04-29] MEDS: ESCITALOPRAM OXALATE 10 MG TABLET PO SCH (21:07)
[2017-04-29] MEDS: ropiniROLE 1 MG TABLET PO SCH (21:07)
[2017-04-29] MEDS: ENOXAPARIN SODIUM 40 MG/0.4 ML DISP.SYRIN SQ SCH (21:08)
[2017-04-30] MEDS: IPRATROPIUM BROMIDE 0.5 MG/2.5 ML NEBU NEB SCH ×3 (03:50→11:27)
[2017-04-30] MEDS: ALBUTEROL SULFATE 2.5 MG/ 0.5 ML NEBU NEB SCH ×3 (03:50→11:27)
[2017-04-30 04:21] VITALS: BP 148/64
[2017-04-30] MEDS: PIPERACILLIN/TAZOBACTAM/D5W 3.375 G in PREMIXED 1 EACH IV SCH ×2 (05:37→13:13)
[2017-04-30 06:05] LABS: BASOPHILS % (AUTO) 0.2 % (0.0-2.0); EOSINOPHILS # (AUTO) 0.1 K/uL (0.0-0.7); EOSINOPHILS % (AUTO) 0.9 % (0.0-7.0); HEMATOCRIT 30.2 % (31.2-41.9); HEMOGLOBIN 10.1 g/dL (10.9-14.3); LYMPHOCYTES % (AUTO) 17.4 % (20.5-51.5); MEAN CORPUSCULAR HEMOGLOBIN 29.6 uug (24.7-32.8); MEAN CORPUSCULAR HGB CONC 33 g/dL (32.3-35.6); MEAN CORPUSCULAR VOLUME 88.6 fL (75.5-95.3); MONOCYTES # (AUTO) 0.8 K/uL (2.0-10.0); MONOCYTES % (AUTO) 6.8 % (0.0-11.0); NEUTROPHILS # (AUTO) 8.4 K/uL (1.8-8.9); NEUTROPHILS % (AUTO) 74.7 % (38.5-71.5); PLATELET COUNT (AUTO) 183 K/uL (179-408); WHITE BLOOD COUNT (AUTO) 11.2 K/uL (3.8-11.8)
[2017-04-30 06:18] LABS: CARBON DIOXIDE 29 mmol/L (21-32); CHLORIDE 108 mmol/L (98-107); CREATININE 0.8 mg/dL (0.6-1.3); GLUCOSE 148 mg/dL (74-106); MAGNESIUM 2.4 mg/dL (1.8-2.4); PHOSPHOROUS 3.1 mg/dL (2.5-4.9); UREA NITROGEN, BLOOD 24 mg/dL (7-18)
[2017-04-30] MEDS: PANTOPRAZOLE SODIUM 40 MG TABLET.DR PO SCH (06:30)
[2017-04-30] MEDS: BLOOD SUGAR DIAGNOSTIC 1 EACH STRIP VI SCH ×2 (06:38→13:09)
--- NOTE | 2017-04-30 06:52 | NUR ---
PATIENT AWAKE IN BED. SLEPT WELL. REPOSITIONED TO SIDE. BILATERAL HEELS OFF-LOADED FOR PRESSURE RELIEF. VSS. NO S/S OF PAIN OR DISCOMFORT. NO FACIAL GRIMACE NOTED. NO RESP. DISTRESS NOTED. BED ALARM ON. CALL LIGHT IN REACH. ALL NEEDS ATTENDED.
[2017-04-30] MEDS ORDERED: RXVAN XX (07:15)
[2017-04-30] MEDS ORDERED: IPRA0.2S6 NEB (07:15)
[2017-04-30] MEDS ORDERED: METH4TAB21 PO (07:15)
[2017-04-30] MEDS ORDERED: LACT1CAP57 PO (07:15)
[2017-04-30] MEDS ORDERED: ALBU2.5V13 NEB (07:15)
[2017-04-30] MEDS ORDERED: VANC1PLA10 IV (07:15)
[2017-04-30] MEDS ORDERED: PIPE3.379 IV (07:15)
--- NOTE | 2017-04-30 07:49 | NUR ---
Awake, oriented to name, able to verbalize needs. O2 at 2L/NC. Aspiration precaution re enforced. Bilateral heels floated
[2017-04-30 08:18] LABS: ABG BASE EXCESS 1.8 mmol/L; ABG PH 7.484 (7.350-7.450); ABG PO2 57.4 mmHg (75.0-100.0); ABG SITE RIGHT BRACHIAL; ABG TOTAL HEMOGLOBIN 10.5 G/dL (12.0-16.0); COHb 1.4 % (0.5-1.5); MetHb 0.3 % (0.0-1.5); O2Hb 89.4 % (94.0-97.0); VENT MODE Nasal Cannula
--- NOTE | 2017-04-30 08:33 | NUR ---
ABG DONE ON 2LPM NASAL CANULA. RESULTS NON CRITICAL HOWEVER PO2 IS SLIGHTLY LOW. O2 INCREASED TO 3LPM NASAL CANULA. PT COMFORTABLE WITH NO DISTRESS
[2017-04-30] MEDS: CYANOCOBALAMIN 1,000 MCG TABLET PO SCH (08:38)
[2017-04-30] MEDS: LACTOBACILLUS RHAMNOSUS GG 1 EACH CAPSULE PO SCH (08:38)
[2017-04-30] MEDS: BETA CAROTENE/VIT C & E/MIN TABLET PO SCH (08:38)
[2017-04-30] MEDS: MULTIVIT, IRON, MIN NO. 8, FA TABLET PO SCH (08:38)
[2017-04-30] MEDS: predniSONE 20 MG TABLET PO SCH (08:38)
[2017-04-30] MEDS: CALCIUM CARBONATE 500 MG TABLET PO SCH (08:38)
[2017-04-30] MEDS: RIVASTIGMINE 4.6 MG PATCH TD SCH (08:38)
[2017-04-30] MEDS: DOCUSATE SODIUM 100 MG CAPSULE PO SCH (08:39)
[2017-04-30] MEDS: LISINOPRIL 5 MG TABLET PO SCH (08:42)
[2017-04-30] MEDS: INSULIN REGULAR, HUMAN 300 UNIT/3 ML VIAL SQ PRN ×2 (08:44→13:11)
[2017-04-30] MEDS: Z GUARD REMEDY PASTE 57 GM TUBE TOP SCH (08:45)
[2017-04-30] MEDS: PROTEIN SUPPLEMENT (PROSTAT) 30 ML LIQUID PO SCH (08:46)
[2017-04-30] MEDS: VANCOMYCIN IV 1 G in PREMIXED 0 EACH IV SCH (10:20)
[2017-04-30 11:47] VITALS: BP 122/48
[2017-04-30 12:51] LABS: LYMPHOCYTES % (MANUAL) 14 % (20-40); MONOCYTES % (MANUAL) 7 % (2-10); NEUTROPHILS % (MANUAL) 79 % (42-75)
[2017-04-30] MEDS: TRAMADOL HCL 50 MG TABLET PO PRN (13:11)
--- NOTE | 2017-04-30 14:16 | NUR ---
Clinical Pharmacy Note: Vancomycin Pharmacy to Dose Subjective: To continue vanco in this 86 y/o female for sepsis unknown source Objective: height 162cm weight 65 kg BUN 24 Scr 0.8 Wbc 11.2 temp98.4 Assessment/Plan Will continue Vancomycin 1000mg IVPB q21hrs for estimated trough of 15mgc/ml. Second dose is due today at 1100. Will check trough before 4th scheduled dose (not yet ordered). Will monitor renal function & adjust the dose if needed. will follow up
--- NOTE | 2017-04-30 15:15 | NUR ---
WITH DISCHARGE ORDER TO SNF, ARRAIGNED WITH WINDY, REPORT GIVEN TO MARISEL. DAUGHTER AT BEDSIDE AND INFORMED OF DISCHARGE. SALINE LOCK ON RIGHT FOREARM INTACT AND PATENT.
--- NOTE | 2017-04-30 15:55 | NUR ---
DISCHARGED PER GURNEY/AMBULANCE IN FAIR AND STABLE CONDITION. AFEBRILE. NOT IN DISTRESS. O2 AT 3L PER N/C. DAUGHTER AT BEDSIDE.
== END 2017-04-30 15:55 | DRG 871 ==
LOC: ER 19:37 → CCU 23:00 → TELE-TD 04-25 04:29 → TELE 04-26 17:31 → MED 04-27 09:06
PROVIDERS: ADMIT Internal Medicine; ATTEND Internal Medicine
DX: A41.9 Sepsis, unspecified organism (principal); J18.9 Pneumonia, unspecified organism; I21.A1 Myocardial infarction type 2; N17.0 Acute kidney failure with tubular necrosis; J84.9 Interstitial pulmonary disease, unspecified; G92 Toxic encephalopathy; G23.1 Progressive supranuclear ophthalmoplegia [Steele-Richardson-Olszewski]; F03.90 Unspecified dementia, unspecified severity, without behavioral disturbance, psychotic disturbance, mood disturbance, and anxiety; E09.9 Drug or chemical induced diabetes mellitus without complications; R65.20 Severe sepsis without septic shock; Y95 Nosocomial condition; E78.5 Hyperlipidemia, unspecified; N32.81 Overactive bladder; Z88.2 Allergy status to sulfonamides; E03.9 Hypothyroidism, unspecified; T38.0X5A Adverse effect of glucocorticoids and synthetic analogues, initial encounter; Y92.129 Unspecified place in nursing home as the place of occurrence of the external cause; R91.8 Other nonspecific abnormal finding of lung field; G25.1 Drug-induced tremor
CPT/HCPCS: 36415; 36600; 70030-TC; 71010; 71275; 74230; 83605; 83735; 84100; 85025; 87040; 87400; 92526; 92610; 92611; 93005; 93307; 94640; A4217; A4663; J0456; J1630; J1650; J1815; J1940; J2270; J2543; J2920; J2930; J3370; J3490; J3590; J7030; J7040; J7050; J7060; J7512; Q9967

== ENCOUNTER 2017-05-06 14:44 | Inpatient (IN) | payer MEDICARE, MEDICAID ==
[~2017-05-06] VITALS: Ht 152.4 cm; Wt 61.7 kg
[~2017-05-06 14:44] MED LIST: ACET-73 PO; ALBU2.5V13 NEB; ALEN70TA3 PO; AMIN30LI27 PO; CALC500T3 PO; CHOL3000 PO; CYAN10009 PO; DOCU-141 PO; ESCI5TAB PO; IPRA0.2S6 NEB; IPRA3AMP IH; LACT1CAP57 PO; LISI-607 PO; MAG355OR32 PO; METH4TAB21 PO; MIRT15TA PO; MULT1TAB11 PO; PANT20TA2 PO; PIPE3.379 IV; PRAV20TA PO; RIVA1PAT TD; ROPI1TAB2 PO; RXVAN XX; TRAM50TA2 PO; VANC1PLA10 IV; VIT1CAPS9 PO
[2017-05-06 15:59] LABS: BASOPHILS # (AUTO) 0.3 K/uL (0.0-8.0); BASOPHILS % (AUTO) 2.2 % (0.0-2.0); EOSINOPHILS # (AUTO) 0.3 K/uL (0.0-0.7); EOSINOPHILS % (AUTO) 2.2 % (0.0-7.0); HEMATOCRIT 30.8 % (37-47); HEMOGLOBIN 10.4 G/DL (12.0-16.0); LYMPHOCYTES # (AUTO) 0.7 K/UL (0.8-4.8); LYMPHOCYTES % (AUTO) 6.1 % (20.5-51.5); MEAN CORPUSCULAR HEMOGLOBIN 30.1 UUG (27.0-31.0); MEAN CORPUSCULAR HGB CONC 34 g/dL (32.0-37.0); MEAN CORPUSCULAR VOLUME 89.4 FL (81.0-99.0); MONOCYTES # (AUTO) 0.7 K/UL (0.1-1.30); MONOCYTES % (AUTO) 5.4 % (0.0-11.0); NEUTROPHILS # (AUTO) 10.1 K/UL (1.8-8.9); NEUTROPHILS % (AUTO) 84.1 % (38.5-71.5); PLATELET COUNT (AUTO) 185 K/UL (150-450); RED BLOOD CELL COUNT(AUTO) 3.45 MIL/UL (4.2-5.4); WHITE BLOOD COUNT (AUTO) 12.1 K/UL (4.0-11.2)
[2017-05-06 16:14] LABS: ALANINE AMINOTRANSFERASE 42 U/L (14-59); ALKALINE PHOSPHATASE 101 U/L (50-136); ASPARTATE AMINOTRANSFERASE 27 U/L (15-37); BILIRUBIN,TOTAL 0.6 mg/dL (0.2-1.0); CARBON DIOXIDE 24 mmol/L (21-32); CHLORIDE 103 mmol/L (98-107); CREATINE KINASE, TOTAL 201 U/L (26-192); CREATININE 4.8 mg/dL (0.6-1.3); GLUCOSE 277 mg/dL (74-106); POTASSIUM 4.8 mmol/L (3.5-5.1); TOTAL PROTEIN, SERUM 6.8 g/dL (6.4-8.2); UREA NITROGEN, BLOOD 25 mg/dL (7-18)
[2017-05-06 16:20] LABS: *BILIRUBIN,URIN NEGATIVE (NEGATIVE); *BLOOD, URINE 2+ (NEGATIVE); *CLARITY,URINE CLOUDY (CLEAR); *COLOR,URINE LIGHT YELLOW (YELLOW); *KETONES,URINE NEGATIVE (NEGATIVE); *PROTEIN,URINE 1+ (NEGATIVE); *UROBILINOGEN,URINE 0.2 E.U./dl (NORMAL); LEUKOCYTE ESTERASE ,URINE NEGATIVE (NEGATIVE); NITRITE, URINE NEGATIVE (NEGATIVE); PH,URINE 5.5 (5.0-8.0)
--- NOTE | 2017-05-06 16:20 | NUR ---
PATIENT HERE FROM [facility]. PATIENT IS AWAKE BUT CONFUSED. PLACED ON A MONITOR. IV ALREADY IN PLACE FROM [facility] FOR "PNEUMONIA" PER PATIENT'S DAUGHTER.
[2017-05-06 16:27] LABS: UGLUCOSE 1+ (NEGATIVE)
[2017-05-06 16:28] LABS: BACTERIA,URINE RARE /HPF (NONE SEEN); SQUAMOUS EPITHELIAL CELL,UR MANY /HPF (NONE SEEN); WBC,URINE 0-3 /HPF (0-3)
[2017-05-06] MEDS ORDERED: SIME40DR2 PO (17:29)
--- NOTE | 2017-05-06 18:01 | NUR ---
DAUGHTER AWARE OF PENDING ADMISSION.
--- NOTE | 2017-05-06 19:01 | NUR ---
WAITING FOR DR LESTER FROM DR [facility] TO CALL BACK. WE CALLED THEM TWICE. I WILL CALL AGAIN. FIRST CALL WAS OVER AN HOUR AGO.
--- NOTE | 2017-05-06 19:34 | NUR ---
BEDSIDE REPORT GIVEN TO LAUREN RADER AWARE OF PT'S CURRENT CONDITION. WILL CONTINUE FURTHER PLAN OF CARE.
[2017-05-06] MEDS ORDERED: SIMETHICONE 40 MG/0.6 ML 30 ML BOTTLE PO PRN ×2 (20:15→20:45)
[2017-05-06] MEDS ORDERED: ACETAMINOPHEN ES 500 MG TABLET PO PRN (20:15)
[2017-05-06] MEDS ORDERED: ONDANSETRON 4 MG/2 ML VIAL IV PRN (20:15)
[2017-05-06] MEDS: IV NS 1000 ML 1,000 ML IV PRN (20:19)
[2017-05-06 20:22] VITALS: BP 165/68
[2017-05-06] MEDS: MIRTAZAPINE 15 MG TABLET PO SCH (20:27)
[2017-05-06] MEDS: ACETAMINOPHEN 325 MG TABLET PO PRN (20:28)
[2017-05-06] MEDS ORDERED: SIMETHICONE 80 MG TAB.CHEW PO PRN (20:45)
[2017-05-06] MEDS: Z GUARD REMEDY PASTE 57 GM TUBE TOP SCH (20:49)
[2017-05-06] MEDS ORDERED: HOME MED MISCELLANEOUS XX SCH (21:00)
[2017-05-06] MEDS ORDERED: ESCITALOPRAM OXALATE 10 MG TABLET PO SCH (21:00)
[2017-05-06] MEDS ORDERED: ATORVASTATIN 10 MG TABLET PO SCH (21:00)
--- NOTE | 2017-05-06 21:00 | NUR ---
Admitted to Telemetry floor, Dx. Renal failure, Elevated Troponin, & Seizures. Patient awake but non verbal. Daughter in room providing patient's information. No signs of resp. distress, afebrile. Sinus rhythm on the monitor with V/S WNL. Initial assessment done. Otero catheter in place. Routine night meds adm., patient tolerated crushed meds w/ apple sauce. Light snacks provided. IVF NS at 75 ml/hr started as ordered. Will continue to monitor.
[2017-05-06] MEDS ORDERED: ALBUTEROL SULFATE 2.5 MG/ 0.5 ML NEBU NEB PRN (21:15)
[2017-05-06] MEDS ORDERED: HOME MED MISCELLANEOUS INH PRN (21:15)
[2017-05-06] MEDS ORDERED: IPRATROPIUM BROMIDE 0.5 MG/2.5 ML NEBU NEB PRN (21:15)
[2017-05-06] MEDS ORDERED: ALBUTEROL SULFATE 2.5 MG/ 0.5 ML NEBU NEB SCH (23:30)
[2017-05-07 00:10] VITALS: BP 121/44
--- NOTE | 2017-05-07 01:15 | NUR ---
Resting comfortably, had soft BM today. Incontinence care provided. Left heel blister noted, see picture in chart. Skin treatment initiated, Mepilex w/ Hydrogel applied & secured with kerlix. For wound care consult in AM.
[2017-05-07 04:38] VITALS: BP 126/56
--- NOTE | 2017-05-07 06:00 | NUR ---
No significant change, remains afebrile. Sinus rhythm on the monitor.
[2017-05-07] MEDS: PANTOPRAZOLE SODIUM 40 MG TABLET.DR PO SCH (06:32)
[2017-05-07 06:47] LABS: CARBON DIOXIDE 22 mmol/L (21-32); CHLORIDE 108 mmol/L (98-107); CREATININE 5.4 mg/dL (0.6-1.3); GLUCOSE 136 mg/dL (74-106); MAGNESIUM 2.2 mg/dL (1.8-2.4); POTASSIUM 4.5 mmol/L (3.5-5.1); UREA NITROGEN, BLOOD 25 mg/dL (7-18)
[2017-05-07 06:56] LABS: BASOPHILS % (AUTO) 0.3 % (0.0-2.0); EOSINOPHILS # (AUTO) 0.6 K/uL (0.0-0.7); EOSINOPHILS % (AUTO) 6.1 % (0.0-7.0); HEMATOCRIT 30.8 % (31.2-41.9); HEMOGLOBIN 10.1 g/dL (10.9-14.3); LYMPHOCYTES # (AUTO) 1.4 K/uL (20.0-40.0); MEAN CORPUSCULAR HEMOGLOBIN 29.9 uug (24.7-32.8); MEAN CORPUSCULAR HGB CONC 33 g/dL (32.3-35.6); MEAN CORPUSCULAR VOLUME 91.1 fL (75.5-95.3); MONOCYTES # (AUTO) 1.1 K/uL (2.0-10.0); MONOCYTES % (AUTO) 10.3 % (0.0-11.0); NEUTROPHILS # (AUTO) 7.2 K/uL (1.8-8.9); NEUTROPHILS % (AUTO) 69.3 % (38.5-71.5); PLATELET COUNT (AUTO) 167 K/uL (179-408); RED BLOOD CELL COUNT(AUTO) 3.38 MIL/uL (3.63-4.92); WHITE BLOOD COUNT (AUTO) 10.3 K/uL (3.8-11.8)
--- NOTE | 2017-05-07 07:45 | NUR ---
RECEIVED PATIENT IN BED AWAKE ALERT TO SELF MADE GOOD EYE CONTACT BUT UNABLE TO VERBALSE NEEDS ALL NEEDS ANTICIPATED AND SATISFIED TURNED AND REPOSITIONED Q2H AND TOLERATED WELL HYLTON CATH PATENT WITH YELLOW COLORED URINE.IVF OF NS IS IN PROGRESS ORDERED WITH NO S/S OF INFILTERATION AT THIS TIME.NO SEIZURE ACTIVITIES AT THIS TIME HEELS FLOATED MADE COMFORTABLE.
[2017-05-07] MEDS: MULTIVIT, IRON, MIN NO. 8, FA TABLET PO SCH (08:42)
[2017-05-07] MEDS: DOCUSATE SODIUM 100 MG CAPSULE PO SCH ×2 (08:43→16:40)
[2017-05-07] MEDS: BETA CAROTENE/VIT C & E/MIN TABLET PO SCH ×2 (08:43→16:40)
[2017-05-07] MEDS: RIVASTIGMINE 4.6 MG PATCH TD SCH (08:43)
[2017-05-07] MEDS: CHOLECALCIFEROL 1,000 UNIT TABLET PO SCH (08:43)
[2017-05-07] MEDS: CYANOCOBALAMIN 1,000 MCG TABLET PO SCH (08:43)
[2017-05-07] MEDS: CALCIUM CARBONATE 500 MG TABLET PO SCH (08:43)
[2017-05-07] MEDS: Z GUARD REMEDY PASTE 57 GM TUBE TOP SCH ×2 (08:44→19:52)
--- NOTE | 2017-05-07 08:45 | NUR ---
PATIENT SEEN AND EXAMINED BY DR REDMOND WITH NEW ORDERS AND NOTED.
[2017-05-07] MEDS: PROTEIN SUPPLEMENT (PROSTAT) 30 ML LIQUID PO SCH ×2 (08:47→16:40)
[2017-05-07] MEDS ORDERED: HOME MED MISCELLANEOUS XX SCH (09:00)
[2017-05-07] MEDS: IV NS 1000 ML 1,000 ML IV PRN ×2 (09:00→22:16)
[2017-05-07] MEDS ORDERED: LISINOPRIL 5 MG TABLET PO SCH (09:00)
[2017-05-07 11:06] VITALS: BP 159/76
[2017-05-07] MEDS ORDERED: SIMETHICONE 80 MG TAB.CHEW PO PRN (11:15)
[2017-05-07] MEDS: IPRATROPIUM BROMIDE 0.5 MG/2.5 ML NEBU NEB SCH ×4 (11:30→23:32)
[2017-05-07] MEDS: ALBUTEROL SULFATE 2.5 MG/ 0.5 ML NEBU NEB SCH ×4 (11:30→23:32)
--- NOTE | 2017-05-07 12:16 | NUR ---
WOUND CARE CONSULT: PT PRESENTS WITH RASH TO PERINEAL AREA AND INTACT BLISTER TO LEFT HEEL, PRESENT ON ADMISSION. ALL SKIN PROTECTION AND RECOMMENDATIONS FOR BLISTER AND RASH DISCUSSED WITH NURSING STAFF. FIRST STEP MATTRESS ORDERED. HEELS TO BE FLOATED AT ALL TIMES. PT TO BE TURNED AND REPOSITIONED EVERY 2 HRS PT CONDITION PERMITS. WILL SEE PRN. NARANJO IN AGREEMENT WITH PLAN OF CARE. Addendum: 05/07/17 at 1218 by DANNY MACHADO RN Amended: Links added.
--- NOTE | 2017-05-07 13:30 | NUR ---
HYLTON CATH REMOVED PER PATIENTS REQUEST PATIENTS DAUGHTER STATED THAT ITS UNCOMFORTABLE FOR HER WILL OBSERVE VOIDING.
--- NOTE | 2017-05-07 13:54 | NUR ---
DR REDMOND HERE PATIENTS DAUGHTER IS AT THE BEDSIDE AND HE SPOKE AND GAVE THEM DETAILS OF THE PLAN OF CARE.
--- NOTE | 2017-05-07 14:00 | NUR ---
PATIENTS DAUGHTER IS AT THE BEDSIDE AND HAS CONCERNS THAT HER MOM DOES NOT WANT THE CATHETER AND IS COMPLAINING ABOUT IT AND STATED THAT IN THE [facility] SHE USES DIAPERS AND NOT HYLTON SO DR REDMOND AWARE WITH OKAY TO DISCONTINUE THE HYLTON.HYLTON REMOVED AT THIS TIME AND WILL CONTINUE TO OBSERVE.
[2017-05-07 14:09] LABS: *BILIRUBIN,URIN NEGATIVE (NEGATIVE); *BLOOD, URINE 2+ (NEGATIVE); *CLARITY,URINE CLEAR (CLEAR); *COLOR,URINE YELLOW (YELLOW); *KETONES,URINE NEGATIVE (NEGATIVE); *PROTEIN,URINE 2+ (NEGATIVE); *UROBILINOGEN,URINE 0.2 E.U./dl (NORMAL); LEUKOCYTE ESTERASE ,URINE 1+ (NEGATIVE); NITRITE, URINE NEGATIVE (NEGATIVE); UGLUCOSE NEGATIVE (NEGATIVE)
[2017-05-07 14:30] LABS: BACTERIA,URINE NONE SEEN /HPF (NONE SEEN); RBC,URINE 20-50 /HPF (0-3)
[2017-05-07 14:31] LABS: SQUAMOUS EPITHELIAL CELL,UR MODERATE /HPF (NONE SEEN); YEAST,URINE FEW /HPF (NONE SEEN)
[2017-05-07 14:51] LABS: *CREATININE,URINE 47.5 mg/dL (30-125); *URINE TOTAL PROTEIN RANDOM 124.3 mg/dL (<150/24HR)
[2017-05-07 15:39] VITALS: BP 156/70
--- NOTE | 2017-05-07 16:30 | NUR ---
PATIENT PLACED ON FIRST STEP MATTRASS ORDERED MADE COMFORTABLE.
--- NOTE | 2017-05-07 17:37 | NUR ---
Unaware of new order Albuterol+Atrovent until now.. Assessed pt, no distress at this time.. Daughter and sitter at bedside.. Spoke with nurse, SHADY tx to be started at 1930 as per schedule, missed 1130 and 1530 no new order printed for RT notification..
--- NOTE | 2017-05-07 18:00 | NUR ---
PATIENT HAS NOT VOIDED AT THIS TIME AND BLADDER IS NOT DISTENDED WILL CONTINUE TO OBSERVE FUTHER PATIENTS DAUGHTER HERE AND STATED TO WAIT FOR ABOUT TWO MORE HOUR TO SEE IF SHE VOIDS BEFORE REINSERTING THE CATHETER.THE BLADDER WILL BE SCANNED TO ENSURE NEED TO REINSERT.
[2017-05-07 20:00] VITALS: BP 158/66
--- NOTE | 2017-05-07 20:02 | NUR ---
Received patient quiet in bed w/ breathing treatment on going. Seen by Dr. Liu (Psychiatrist) for evaluation. No signs of distress. noted, sinus rhythm on the monitor.
[2017-05-07] MEDS: TRAMADOL HCL 50 MG TABLET PO PRN (20:46)
[2017-05-07] MEDS: MIRTAZAPINE 15 MG TABLET PO SCH (20:47)
[2017-05-07] MEDS: CLOTRIMAZOLE 1% CREAM 30 GM TUBE TOP SCH (20:49)
[2017-05-07] MEDS: CEFTRIAXONE 1 G in IV DEXTROSE 5% 50 ML IV SCH (21:04)
[2017-05-07] MEDS: Z GUARD REMEDY PASTE 57 GM TUBE TOP PRN (23:45)
[2017-05-08] VITALS (7 sets, daily range): BP systolic 119–176; BP diastolic 52–83
[2017-05-08] MEDS: IPRATROPIUM BROMIDE 0.5 MG/2.5 ML NEBU NEB SCH ×7 (03:01→23:30)
[2017-05-08] MEDS: ALBUTEROL SULFATE 2.5 MG/ 0.5 ML NEBU NEB SCH ×7 (03:01→23:30)
[2017-05-08] MEDS: Z GUARD REMEDY PASTE 57 GM TUBE TOP PRN (03:46)
--- NOTE | 2017-05-08 05:12 | NUR ---
Paged Dr. Echevarria about patient's current temp 100.5 F. ordered to just give Tylenol 650 mg.
[2017-05-08] MEDS: ACETAMINOPHEN 650 MG SUPP.RECT RC PRN (05:34)
--- NOTE | 2017-05-08 05:35 | NUR ---
Tylenol 650 mg supp administered for temp 100.5 F. Cooling measures applied.
[2017-05-08] MEDS ORDERED: ACETAMINOPHEN 650 MG SUPP.RECT RC ONE (05:44)
[2017-05-08] MEDS: PANTOPRAZOLE SODIUM 40 MG TABLET.DR PO SCH (06:22)
--- NOTE | 2017-05-08 06:30 | NUR ---
Re-checked body tepm., latest temp 98.1 F/oral.
--- NOTE | 2017-05-08 07:00 | NUR ---
Assisted w/ needs, no acute distress, vital signs WNL.
--- NOTE | 2017-05-08 07:05 | NUR ---
received report from shift coordinator nurse, patient in bed asleep, no evidence of distress noted, bed in low position, side rails up x2.
[2017-05-08 08:20] LABS: ALANINE AMINOTRANSFERASE 28 U/L (14-59); ALKALINE PHOSPHATASE 98 U/L (50-136); ASPARTATE AMINOTRANSFERASE 20 U/L (15-37); BILIRUBIN,TOTAL 0.6 mg/dL (0.2-1.0); CARBON DIOXIDE 19 mmol/L (21-32); CHLORIDE 111 mmol/L (98-107); CREATINE KINASE, TOTAL 106 U/L (26-192); CREATININE 6.5 mg/dL (0.6-1.3); GLUCOSE 97 mg/dL (74-106); MAGNESIUM 2.1 mg/dL (1.8-2.4); PHOSPHOROUS 5.4 mg/dL (2.5-4.9); POTASSIUM 5.2 mmol/L (3.5-5.1); TOTAL PROTEIN, SERUM 6.4 g/dL (6.4-8.2); UREA NITROGEN, BLOOD 30 mg/dL (7-18)
[2017-05-08] MEDS: RIVASTIGMINE 4.6 MG PATCH TD SCH (09:41)
[2017-05-08] MEDS: Z GUARD REMEDY PASTE 57 GM TUBE TOP SCH ×2 (09:42→21:06)
[2017-05-08] MEDS: CLOTRIMAZOLE 1% CREAM 30 GM TUBE TOP SCH ×2 (09:42→21:06)
[2017-05-08] MEDS: PROTEIN SUPPLEMENT (PROSTAT) 30 ML LIQUID PO SCH ×2 (09:42→17:12)
[2017-05-08] MEDS: CALCIUM CARBONATE 500 MG TABLET PO SCH (09:43)
[2017-05-08] MEDS: BETA CAROTENE/VIT C & E/MIN TABLET PO SCH ×2 (09:43→17:12)
[2017-05-08] MEDS: DOCUSATE SODIUM 100 MG CAPSULE PO SCH ×2 (09:43→17:12)
[2017-05-08] MEDS: CHOLECALCIFEROL 1,000 UNIT TABLET PO SCH (09:43)
[2017-05-08] MEDS: MULTIVIT, IRON, MIN NO. 8, FA TABLET PO SCH (09:43)
[2017-05-08] MEDS: CYANOCOBALAMIN 1,000 MCG TABLET PO SCH (09:43)
[2017-05-08] MEDS: IV NS 1000 ML 1,000 ML IV PRN (12:14)
--- NOTE | 2017-05-08 12:50 | NUR ---
Received orders from Dr. Holman to reinsert feliz catheter.
--- NOTE | 2017-05-08 16:20 | NUR ---
Patient found to have an increased heart rate, wheezing and abnormal breathing pattern after albuterol administration. Contacted Dr. Spencer for orders to request change to zopinex.
--- NOTE | 2017-05-08 18:00 | NUR ---
ATTEMPTED TO DO ABG. UNABLE TO OBTAIN SAMPLE. ASSISTED BY NOREEN SCHWAB. ALSO COULD NOT OBTAIN BLOOD SAMPLE. NURSE AWARE. NURSE ASKED TO ENDORSE TO TUBERCULOSIS SPECIALIST. WILL ENDORSE TO TUBERCULOSIS SPECIALIST RT TO ATTEMPT ABG PROCEDURE.
[2017-05-08 18:02] LABS: BASOPHILS # (AUTO) 0.1 K/uL (0.0-8.0); BASOPHILS % (AUTO) 0.6 % (0.0-2.0); EOSINOPHILS # (AUTO) 0.5 K/uL (0.0-0.7); EOSINOPHILS % (AUTO) 3.8 % (0.0-7.0); HEMATOCRIT 28.7 % (31.2-41.9); HEMOGLOBIN 9.6 g/dL (10.9-14.3); LYMPHOCYTES # (AUTO) 1.2 K/uL (20.0-40.0); LYMPHOCYTES % (AUTO) 9.2 % (20.5-51.5); MEAN CORPUSCULAR HEMOGLOBIN 30.3 uug (24.7-32.8); MEAN CORPUSCULAR HGB CONC 33 g/dL (32.3-35.6); MEAN CORPUSCULAR VOLUME 90.8 fL (75.5-95.3); MONOCYTES # (AUTO) 1.2 K/uL (2.0-10.0); MONOCYTES % (AUTO) 9.9 % (0.0-11.0); NEUTROPHILS # (AUTO) 9.7 K/uL (1.8-8.9); NEUTROPHILS % (AUTO) 76.5 % (38.5-71.5); PLATELET COUNT (AUTO) 195 K/uL (179-408); RED BLOOD CELL COUNT(AUTO) 3.16 MIL/uL (3.63-4.92); WHITE BLOOD COUNT (AUTO) 12.6 K/uL (3.8-11.8)
[2017-05-08 18:05] LABS: ALANINE AMINOTRANSFERASE 29 U/L (14-59); ALKALINE PHOSPHATASE 102 U/L (50-136); ASPARTATE AMINOTRANSFERASE 23 U/L (15-37); BILIRUBIN,TOTAL 0.6 mg/dL (0.2-1.0); CARBON DIOXIDE 19 mmol/L (21-32); CHLORIDE 109 mmol/L (98-107); CREATININE 6.6 mg/dL (0.6-1.3); GLUCOSE 122 mg/dL (74-106); MAGNESIUM 2.1 mg/dL (1.8-2.4); POTASSIUM 4.9 mmol/L (3.5-5.1); TOTAL PROTEIN, SERUM 6.6 g/dL (6.4-8.2); UREA NITROGEN, BLOOD 31 mg/dL (7-18)
--- NOTE | 2017-05-08 19:03 | NUR ---
Patient is in bed, no evidence of distress noted, bed in low position, side rails up x2. ABG not able to be obtained, as patient continued to be contracted and resisted positioning of wrist. Wheezing has subsided.
--- NOTE | 2017-05-08 19:30 | NUR ---
nsg: pt received asleep, arousable. no acute distress noted. comfortable sleeping. private caregiver at the bedside.
[2017-05-08 19:41] LABS: BAND % (MANUAL) 1 % (0-10); EOSINOPHILS % (MANUAL) 3 % (0-8); LYMPHOCYTES % (MANUAL) 12 % (20-40); MONOCYTES % (MANUAL) 7 % (2-10); NEUTROPHILS % (MANUAL) 77 % (42-75)
--- NOTE | 2017-05-08 19:58 | NUR ---
cindyg: pt endorsed to [place] RADER.
[2017-05-08] MEDS: CEFTRIAXONE 1 G in IV DEXTROSE 5% 50 ML IV SCH (20:09)
[2017-05-08] MEDS: MIRTAZAPINE 15 MG TABLET PO SCH (21:00)
[2017-05-08] MEDS: DEXTROSE 5% IV SCH (21:22)
[2017-05-08] MEDS: CEFEPIME HCL IV SCH (21:22)
[2017-05-09] VITALS (7 sets, daily range): BP systolic 148–189; BP diastolic 62–96
[2017-05-09] MEDS: IPRATROPIUM BROMIDE 0.5 MG/2.5 ML NEBU NEB SCH ×6 (02:31→23:26)
[2017-05-09] MEDS: ALBUTEROL SULFATE 2.5 MG/ 0.5 ML NEBU NEB SCH ×6 (02:31→23:26)
[2017-05-09] MEDS: PANTOPRAZOLE SODIUM 40 MG TABLET.DR PO SCH (06:12)
--- NOTE | 2017-05-09 06:26 | NUR ---
PT IN BED RESTING, SLEPT MOST SHIFT LAST NIGHT, IN NO ACUTE SIGN OF DISTRESS. TURNED AND REPOSITIONED. HYLTON PATENT AND INTACT. SR ON TELE. BP ELEVATED 174/68. PAGED DR. MARLOW.
[2017-05-09] MEDS ORDERED: NIFEdipine XL 30 MG TABSR PO ONE ×2 (06:45→07:01)
[2017-05-09 06:55] LABS: BASOPHILS # (AUTO) 0.1 K/uL (0.0-8.0); BASOPHILS % (AUTO) 1.1 % (0.0-2.0); EOSINOPHILS # (AUTO) 0.5 K/uL (0.0-0.7); EOSINOPHILS % (AUTO) 3.9 % (0.0-7.0); HEMATOCRIT 28.4 % (31.2-41.9); HEMOGLOBIN 9.3 g/dL (10.9-14.3); LYMPHOCYTES # (AUTO) 1.1 K/uL (20.0-40.0); MEAN CORPUSCULAR HEMOGLOBIN 29.7 uug (24.7-32.8); MEAN CORPUSCULAR HGB CONC 33 g/dL (32.3-35.6); MEAN CORPUSCULAR VOLUME 90.9 fL (75.5-95.3); MONOCYTES # (AUTO) 1.1 K/uL (2.0-10.0); MONOCYTES % (AUTO) 8.8 % (0.0-11.0); NEUTROPHILS # (AUTO) 9.3 K/uL (1.8-8.9); NEUTROPHILS % (AUTO) 77.2 % (38.5-71.5); PLATELET COUNT (AUTO) 188 K/uL (179-408); RED BLOOD CELL COUNT(AUTO) 3.12 MIL/uL (3.63-4.92); WHITE BLOOD COUNT (AUTO) 12.1 K/uL (3.8-11.8)
[2017-05-09 06:58] LABS: ALANINE AMINOTRANSFERASE 29 U/L (14-59); ALKALINE PHOSPHATASE 114 U/L (50-136); ASPARTATE AMINOTRANSFERASE 30 U/L (15-37); BILIRUBIN,TOTAL 0.6 mg/dL (0.2-1.0); CARBON DIOXIDE 18 mmol/L (21-32); CHLORIDE 111 mmol/L (98-107); CREATININE 7.1 mg/dL (0.6-1.3); GLUCOSE 106 mg/dL (74-106); MAGNESIUM 2.2 mg/dL (1.8-2.4); PHOSPHOROUS 5.6 mg/dL (2.5-4.9); POTASSIUM 4.7 mmol/L (3.5-5.1); TOTAL PROTEIN, SERUM 6.2 g/dL (6.4-8.2); UREA NITROGEN, BLOOD 36 mg/dL (7-18)
--- NOTE | 2017-05-09 06:59 | NUR ---
DR. MARLOW CALLED BACK WITH ORDER TO GIVE PROCARDIA PO X 1. WILL ENDORSE TO AM NURSE.
--- NOTE | 2017-05-09 07:20 | NUR ---
RECEIVED REPORT FROM LOGISTICS LEAD NURSE, PATIENT IN BED ASLEEP, NO EVIDENCE OF DISTRESS NOTED. BED IN LOW POSITION, SIDE RAILS UP X2. HYLTON IN PLACE, CLEAR URINE NOTED IN CHAMBER.
[2017-05-09] MEDS: MULTIVIT, IRON, MIN NO. 8, FA TABLET PO SCH (09:08)
[2017-05-09] MEDS: RIVASTIGMINE 4.6 MG PATCH TD SCH (09:08)
[2017-05-09] MEDS: PROTEIN SUPPLEMENT (PROSTAT) 30 ML LIQUID PO SCH ×2 (09:09→17:24)
[2017-05-09] MEDS: CALCIUM CARBONATE 500 MG TABLET PO SCH (09:09)
[2017-05-09] MEDS: CLOTRIMAZOLE 1% CREAM 30 GM TUBE TOP SCH ×2 (09:09→20:04)
[2017-05-09] MEDS: Z GUARD REMEDY PASTE 57 GM TUBE TOP SCH ×2 (09:09→20:03)
[2017-05-09] MEDS: DOCUSATE SODIUM 100 MG CAPSULE PO SCH ×2 (09:09→17:24)
[2017-05-09] MEDS: BETA CAROTENE/VIT C & E/MIN TABLET PO SCH ×2 (09:09→17:24)
[2017-05-09] MEDS: CYANOCOBALAMIN 1,000 MCG TABLET PO SCH (09:09)
[2017-05-09] MEDS: CHOLECALCIFEROL 1,000 UNIT TABLET PO SCH (09:09)
[2017-05-09] MEDS ORDERED: BUMETANIDE 1 MG/4 ML VIAL IV ONE (11:30)
--- NOTE | 2017-05-09 12:00 | NUR ---
PATIENT REFUSING MEDS, AND ONLY EATING LIMITED AMOUNTS OF FOOD. BLOOD PRESSURE RISING.
[2017-05-09 12:59] LABS: CARBON DIOXIDE 17 mmol/L (21-32); CHLORIDE 110 mmol/L (98-107); CREATININE 7.2 mg/dL (0.6-1.3); GLUCOSE 144 mg/dL (74-106); POTASSIUM 4.8 mmol/L (3.5-5.1); UREA NITROGEN, BLOOD 37 mg/dL (7-18)
[2017-05-09] MEDS ORDERED: NITROGLYCERIN OINT 1 GM PACKET TP PRN (15:15)
[2017-05-09] MEDS ORDERED: NITROGLYCERIN OINT 1 GM PACKET TP SCH ×2 (15:15→15:30)
--- NOTE | 2017-05-09 17:00 | NUR ---
PATIENT BP WAS ELEVATED, ORDER RECEIVED FROM DR REDMOND FOR NITRO PASTE.
--- NOTE | 2017-05-09 19:06 | NUR ---
PATIENT IN BED, NO EVIDENCE OF DISTRESS NOTED AT THIS TIME, BED IN LOW POSITION, SIDE RAILS UP X2. SITTER AT BEDSIDE, TOLERATING MEALS AND FLUIDS WELL WHEN SHE ACCEPTS THEM.
--- NOTE | 2017-05-09 19:30 | NUR ---
RECEIVED PT'S CONFUSED,GENERALIZED WEAKNESS.F/C TO GRAVITY.PT HAD DRY COUGH SOMETIMES BUT NO SOB NOTED.PT'S CAREGIVER AT THE BEDSIDE.ASSISTED TO REPOSITION AND KEPT COMFORT.PT TOLERATED WELL WITH ASSISTANCE.TELEMETRY'S ON SR 88/MIN NOTED. AT 20:30;PT'S DAUGHTER VISITED PT;UPDATED THE PLAN OF CARE TO HER;SHE VERBALIZED UNDERSTANDING AND COOPERATIVE,SHE STATED THAT " ALREADY CALLED ME AND TALK TO ME".CONTINUED MONITORING TO PT.
[2017-05-09] MEDS: AMLODIPINE 5 MG TABLET PO SCH (20:02)
[2017-05-09] MEDS: MIRTAZAPINE 15 MG TABLET PO SCH (20:02)
[2017-05-09] MEDS: ACETAMINOPHEN 325 MG TABLET PO PRN (20:02)
[2017-05-09] MEDS: DEXTROSE 5% IV SCH (21:00)
[2017-05-09] MEDS: CEFEPIME HCL IV SCH (21:00)
--- NOTE | 2017-05-09 21:30 | NUR ---
CALLED AND ASKED ABOUT PT'S CONDITION;IT'S STABLE CONDITION AT THIS TIME;NO FURTHER ORDER NOTED.
[2017-05-09] MEDS: hydrALAZINE HCL 25 MG TABLET PO PRN (23:53)
[2017-05-10] VITALS: BP 166/76
--- NOTE | 2017-05-10 | NUR ---
ELEVATED BP( RECORD);APRESOLINE 25 MG PO X1 TO PT ORDER;EDUCATED TO PT BUT PT'S UNABLE TO UNDERSTAND DUE TO MENTAL STATUS.PT TOLERATED WELL WITH MEDICATION NOTED.TELEMETRY'S SR 87/MIN NOTED.ASSISTED TO REPOSITION.KEPT COMFORT.CLOSELY MONITORING TO PT.BED ALARM'S ON.
[2017-05-10] MEDS: ALBUTEROL SULFATE 2.5 MG/ 0.5 ML NEBU NEB SCH ×6 (03:01→22:51)
[2017-05-10] MEDS: IPRATROPIUM BROMIDE 0.5 MG/2.5 ML NEBU NEB SCH ×6 (03:01→22:51)
--- NOTE | 2017-05-10 03:30 | NUR ---
Pt's awake after got HHN Rx and kept saying that"I need help";for many times but unable to tell.assisted to reposition and elevated BLE.kept comfort.Seroquel 6.25 mg PO x1 to pt but pt refused to take it;wasted it at this time noted.closely monitoring to pt.
[2017-05-10] MEDS: QUETIAPINE FUMARATE 25 MG TABLET PO PRN ×2 (03:33→05:10)
[2017-05-10 04:40] VITALS: BP 177/83
--- NOTE | 2017-05-10 04:40 | NUR ---
BP 177/83 MMHG,HR 100/MIN RR 20/MIN;APRESOLINE 25 MG PO X1 TO PT BUT PT REFUSED TO OPEN HER MOUTH AT THIS TIME,SHE'S ABLE TO ANSWER A QUESTION BUT WHEN I TOLD HER TO TAKE MEDICATION,SHE CLOSED HER MOUTH;REINFORCED FOR MANY TIMES PT STILL REFUSED AND CLOSED HER MOUTH TIGHTLY.CALLED WHO'S SALES ASSISTANT DISPLAYS TONHUNTER AND LEFT THE MESSAGE W/EXCHANGE SERVICE;AWAITING FOR MD'S CALL;WILL FOLLOW UP.PT DENIED OF PAIN,UNLABORED BREATHING NOTED.
[2017-05-10] MEDS: hydrALAZINE HCL 25 MG TABLET PO PRN ×2 (04:43→05:08)
--- NOTE | 2017-05-10 05:30 | NUR ---
CALLED FOR THE SECOND TIME AND ABLE TO TALK TO HIM AT 05:40;NOTIFIED MD DUE TO PT'S CONDITION;NEW ORDER'S GIVEN/READ BACK TO CONFIRM;CARRIED IT OUT NOTED.
[2017-05-10] MEDS: NITROGLYCERIN OINT 1 GM PACKET TP PRN ×2 (06:04→11:36)
[2017-05-10] MEDS: ALENDRONATE SODIUM 70 MG TABLET PO SCH ×2 (06:31→06:42)
[2017-05-10] MEDS: PANTOPRAZOLE SODIUM 40 MG TABLET.DR PO SCH ×2 (06:31→06:42)
--- NOTE | 2017-05-10 06:45 | NUR ---
ASSISTED PT FOR AM CARE ON BED WITH MAXIMAL ASSISTANCE.SKIN CARE AT THIS TIME.PT REFUSED TO GET ORAL MEDICATION THIS MORNING,OPENED MOUTH ONLY SIPPED OF WATER.F/C'S INTACT.TELEMETRY'S SR 84/MIN.NO DISTRESS AND UNLABORED BREATHING IN THE SHIFT NOTED.CONTINUED MONITORING TO PT.
--- NOTE | 2017-05-10 07:25 | NUR ---
RECEIVED REPORT FROM BOX SEALING MACHINE OPERATOR NURSE, PATIENT IN BED ASLEEP, NO EVIDENCE OF DISTRESS NOTED, BED IN LOW POSITION, SIDE RAILS UP X2.
[2017-05-10 08:10] LABS: HEPATITIS B SURFACE AB Reactive (.); HEPATITIS B SURFACE AG Negative (Negative)
[2017-05-10] MEDS: CALCIUM CARBONATE 500 MG TABLET PO SCH (09:13)
[2017-05-10] MEDS: DOCUSATE SODIUM 100 MG CAPSULE PO SCH ×2 (09:13→17:50)
[2017-05-10] MEDS: CHOLECALCIFEROL 1,000 UNIT TABLET PO SCH (09:14)
[2017-05-10] MEDS: MULTIVIT, IRON, MIN NO. 8, FA TABLET PO SCH (09:16)
[2017-05-10] MEDS: BETA CAROTENE/VIT C & E/MIN TABLET PO SCH ×2 (09:16→17:50)
[2017-05-10] MEDS: AMLODIPINE 5 MG TABLET PO SCH (09:16)
[2017-05-10] MEDS: RIVASTIGMINE 4.6 MG PATCH TD SCH (09:16)
[2017-05-10] MEDS: CYANOCOBALAMIN 1,000 MCG TABLET PO SCH (09:16)
[2017-05-10] MEDS: CLOTRIMAZOLE 1% CREAM 30 GM TUBE TOP SCH ×2 (09:17→21:18)
[2017-05-10] MEDS: PROTEIN SUPPLEMENT (PROSTAT) 30 ML LIQUID PO SCH ×2 (09:17→17:50)
[2017-05-10] MEDS: Z GUARD REMEDY PASTE 57 GM TUBE TOP SCH ×2 (09:17→21:18)
[2017-05-10 11:13] VITALS: BP 187/88
[2017-05-10 14:41] LABS: BASOPHILS % (AUTO) 0.3 % (0.0-2.0); EOSINOPHILS # (AUTO) 0.7 K/uL (0.0-0.7); EOSINOPHILS % (AUTO) 5.4 % (0.0-7.0); HEMATOCRIT 28.4 % (37-47); HEMOGLOBIN 9.5 G/DL (12.0-16.0); LYMPHOCYTES % (AUTO) 7.9 % (20.5-51.5); MEAN CORPUSCULAR HEMOGLOBIN 29.8 UUG (27.0-31.0); MEAN CORPUSCULAR HGB CONC 34 g/dL (32.0-37.0); MEAN CORPUSCULAR VOLUME 88.9 FL (81.0-99.0); MONOCYTES % (AUTO) 8.1 % (0.0-11.0); NEUTROPHILS % (AUTO) 78.3 % (38.5-71.5); PLATELET COUNT (AUTO) 279 K/UL (150-450); WHITE BLOOD COUNT (AUTO) 12.7 K/UL (4.0-11.2)
[2017-05-10 14:51] LABS: ALANINE AMINOTRANSFERASE 29 U/L (14-59); ALKALINE PHOSPHATASE 121 U/L (50-136); ASPARTATE AMINOTRANSFERASE 23 U/L (15-37); BILIRUBIN,TOTAL 0.8 mg/dL (0.2-1.0); CARBON DIOXIDE 20 mmol/L (21-32); CHLORIDE 110 mmol/L (98-107); GLUCOSE 137 mg/dL (74-106); MAGNESIUM 2.1 mg/dL (1.8-2.4); PHOSPHOROUS 5.9 mg/dL (2.5-4.9); POTASSIUM 4.8 mmol/L (3.5-5.1); TOTAL PROTEIN, SERUM 6.6 g/dL (6.4-8.2); UREA NITROGEN, BLOOD 42 mg/dL (7-18)
[2017-05-10 14:55] LABS: CREATININE 8.1 mg/dL (0.6-1.3)
[2017-05-10 15:16] VITALS: BP 186/88
[2017-05-10 17:50] LABS: *ANTI-SCLERODERMA-70 AB <0.2 AI (0.0-0.9); *SJOGREN'S ANTI-SS-A <0.2 AI (0.0-0.9); *SJOGREN'S ANTI-SS-B <0.2 AI (0.0-0.9); *SMITH ANTIBODIES <0.2 AI (0.0-0.9); ANTI-DNA(DS) AB, QN <1 IU/mL (0-9)
--- NOTE | 2017-05-10 18:04 | NUR ---
PATIENT HAS BEEN IN BED AND RESTING, OCCASIONAL FRUSTRATION AND YELLING OUT NOTED. BED IS IN LOW POSITION, SIDE RAILS UP X2. DR REDMOND REPORTED LAB RESULTS TO FAMILY AND MAY CONTINUE WITHOUT AN ORDER FOR DIALYSIS UNTIL FRIDAY. PATIENT HAS EATEN VERY SMALL AMOUNT OF MEALS.
[2017-05-10] MEDS ORDERED: FLUCONAZOLE 100 MG TABLET PO SCH (19:00)
[2017-05-10 20:00] VITALS: BP 165/66
[2017-05-10] MEDS: MIRTAZAPINE 15 MG TABLET PO SCH (21:14)
[2017-05-10] MEDS: CEFEPIME HCL IV SCH (21:17)
[2017-05-10] MEDS: DEXTROSE 5% IV SCH (21:17)
[2017-05-10] MEDS ORDERED: FLUCONAZOLE 100 MG TABLET ONE (21:39)
[2017-05-11] VITALS: BP 142/67
[2017-05-11] MEDS: ALBUTEROL SULFATE 2.5 MG/ 0.5 ML NEBU NEB SCH ×6 (03:32→22:40)
[2017-05-11] MEDS: IPRATROPIUM BROMIDE 0.5 MG/2.5 ML NEBU NEB SCH ×6 (03:32→22:40)
[2017-05-11 04:00] VITALS: BP 172/67
[2017-05-11] MEDS: NITROGLYCERIN OINT 1 GM PACKET TP PRN (05:15)
[2017-05-11] MEDS: PANTOPRAZOLE SODIUM 40 MG TABLET.DR PO SCH (06:15)
[2017-05-11 06:54] LABS: ALANINE AMINOTRANSFERASE 18 U/L (14-59); ALKALINE PHOSPHATASE 103 U/L (50-136); ASPARTATE AMINOTRANSFERASE 18 U/L (15-37); CARBON DIOXIDE 19 mmol/L (21-32); CHLORIDE 112 mmol/L (98-107); GLUCOSE 131 mg/dL (74-106); MAGNESIUM 1.9 mg/dL (1.8-2.4); PHOSPHOROUS 6.1 mg/dL (2.5-4.9); POTASSIUM 4.4 mmol/L (3.5-5.1); TOTAL PROTEIN, SERUM 5.8 g/dL (6.4-8.2); UREA NITROGEN, BLOOD 44 mg/dL (7-18)
[2017-05-11 06:58] LABS: BASOPHILS % (AUTO) 0.3 % (0.0-2.0); CREATININE 7.9 mg/dL (0.6-1.3); LYMPHOCYTES # (AUTO) 0.7 K/uL (20.0-40.0); MONOCYTES # (AUTO) 0.8 K/uL (2.0-10.0)
[2017-05-11 07:06] LABS: EOSINOPHILS # (AUTO) 0.5 K/uL (0.0-0.7); EOSINOPHILS % (AUTO) 5.7 % (0.0-7.0); HEMOGLOBIN 8.1 g/dL (10.9-14.3); LYMPHOCYTES % (AUTO) 7.5 % (20.5-51.5); MEAN CORPUSCULAR HEMOGLOBIN 32.5 uug (24.7-32.8); MEAN CORPUSCULAR HGB CONC 36 g/dL (32.3-35.6); MEAN CORPUSCULAR VOLUME 90.8 fL (75.5-95.3); NEUTROPHILS # (AUTO) 7.2 K/uL (1.8-8.9); NEUTROPHILS % (AUTO) 77.5 % (38.5-71.5); PLATELET COUNT (AUTO) 205 K/uL (179-408)
[2017-05-11 07:11] LABS: RED BLOOD CELL COUNT(AUTO) 2.49 MIL/uL (3.63-4.92)
[2017-05-11 07:12] LABS: HEMATOCRIT 22.6 % (31.2-41.9); WHITE BLOOD COUNT (AUTO) 9.3 K/uL (3.8-11.8)
--- NOTE | 2017-05-11 07:33 | NUR ---
first dose of diflucan given by shift production supervisor
--- NOTE | 2017-05-11 07:40 | NUR ---
Received call from for a Dialysis consult and Hemodialysis Catheter Insertion for client.
--- NOTE | 2017-05-11 07:45 | NUR ---
Obtain consent from daughter for Hemodialysis Catheter Insertion.
--- NOTE | 2017-05-11 08:30 | NUR ---
Dr. Townsend performed a bedside Hemodialysis Catheter insertion 13F by 24 in length was inserted on the left groin area. Chart, consent and time-out in the room.
[2017-05-11] MEDS: TRAMADOL HCL 50 MG TABLET PO PRN (09:05)
[2017-05-11] MEDS: CHOLECALCIFEROL 1,000 UNIT TABLET PO SCH (09:05)
[2017-05-11] MEDS: AMLODIPINE 5 MG TABLET PO SCH (09:06)
[2017-05-11] MEDS: RIVASTIGMINE 4.6 MG PATCH TD SCH (09:06)
[2017-05-11] MEDS: BETA CAROTENE/VIT C & E/MIN TABLET PO SCH ×2 (09:06→17:00)
[2017-05-11] MEDS: DOCUSATE SODIUM 100 MG CAPSULE PO SCH ×2 (09:06→17:00)
[2017-05-11] MEDS: CYANOCOBALAMIN 1,000 MCG TABLET PO SCH (09:06)
[2017-05-11] MEDS: CALCIUM CARBONATE 500 MG TABLET PO SCH (09:06)
[2017-05-11] MEDS: MULTIVIT, IRON, MIN NO. 8, FA TABLET PO SCH (09:06)
[2017-05-11] MEDS: Z GUARD REMEDY PASTE 57 GM TUBE TOP SCH ×2 (09:07→21:40)
[2017-05-11] MEDS: CLOTRIMAZOLE 1% CREAM 30 GM TUBE TOP SCH ×2 (09:07→21:40)
[2017-05-11] MEDS: PROTEIN SUPPLEMENT (PROSTAT) 30 ML LIQUID PO SCH ×2 (09:07→17:00)
--- NOTE | 2017-05-11 09:27 | NUR ---
Consent obtained from the client for the NM HARMEET JAZZ Vas Flow procedure Addendum: 05/11/17 at 1313 by CARLINE RAVI RN Documentation error. please disregard.
[2017-05-11 11:04] VITALS: BP 168/80
--- NOTE | 2017-05-11 15:35 | NUR ---
Urine collected and sent to lab for analysis
[2017-05-11 15:44] VITALS: BP 189/88
--- NOTE | 2017-05-11 16:15 | NUR ---
First dialysis session started.
--- NOTE | 2017-05-11 16:45 | NUR ---
Checked in with dialysis nurse, client is tolerating procedure well
[2017-05-11 16:50] LABS: *CREATININE,URINE 38.8 mg/dL (30-125); *URINE TOTAL PROTEIN RANDOM 19.1 mg/dL (<150/24HR)
[2017-05-11 16:54] LABS: *BILIRUBIN,URIN NEGATIVE (NEGATIVE); *BLOOD, URINE 1+ (NEGATIVE); *COLOR,URINE YELLOW (YELLOW); *KETONES,URINE NEGATIVE (NEGATIVE); *PROTEIN,URINE NEGATIVE (NEGATIVE); *UROBILINOGEN,URINE 0.2 E.U./dl (NORMAL); LEUKOCYTE ESTERASE ,URINE TRACE (NEGATIVE); NITRITE, URINE NEGATIVE (NEGATIVE); PH,URINE 6.5 (5.0-8.0); UGLUCOSE NEGATIVE (NEGATIVE)
[2017-05-11 17:18] LABS: *CLARITY,URINE HAZY (CLEAR)
[2017-05-11 17:28] LABS: MUCUS,URINE FEW /LPF (0-FEW); SQUAMOUS EPITHELIAL CELL,UR FEW /HPF (NONE SEEN); YEAST,URINE MANY /HPF (NONE SEEN)
--- NOTE | 2017-05-11 18:44 | NUR ---
Held 1700 medications due to client still being hemodialyzed. Procedure started around 161 and still in progress.
--- NOTE | 2017-05-11 18:53 | NUR ---
Dialysis finished, B/P 142/73. 1000 ml removed.
[2017-05-11] MEDS: CEFEPIME HCL IV SCH (19:58)
[2017-05-11] MEDS: DEXTROSE 5% IV SCH (19:58)
[2017-05-11 20:00] VITALS: BP 131/41
--- NOTE | 2017-05-11 21:30 | NUR ---
PATIENT UNABLE TO TAKE PO MEDICATIONS. PATIENT DID NOT OPEN MOUTH FOR MEDICATIONS TO BE ADMINISTERED. ATTEMPTED SEVERAL TIMES BUT PT. REFUSED.
[2017-05-11] MEDS: MIRTAZAPINE 15 MG TABLET PO SCH (21:41)
[2017-05-11] MEDS: FLUCONAZOLE 100 MG TABLET PO SCH (21:41)
[2017-05-12] VITALS (8 sets, daily range): BP systolic 137–167; BP diastolic 56–73
[2017-05-12] MEDS: IPRATROPIUM BROMIDE 0.5 MG/2.5 ML NEBU NEB SCH ×6 (03:22→23:05)
[2017-05-12] MEDS: ALBUTEROL SULFATE 2.5 MG/ 0.5 ML NEBU NEB SCH ×6 (03:23→23:05)
[2017-05-12] MEDS: PANTOPRAZOLE SODIUM 40 MG TABLET.DR PO SCH ×2 (06:10→06:31)
--- NOTE | 2017-05-12 06:30 | NUR ---
NON-ADMINISTRATION PROTONIX: UNABLE TO ADMINISTER MEDICATION TO PT. BECAUSE PT. WILL NOT OPEN MOUTH.
[2017-05-12 06:44] LABS: BASOPHILS % (AUTO) 0.4 % (0.0-2.0); EOSINOPHILS # (AUTO) 0.6 K/uL (0.0-0.7); EOSINOPHILS % (AUTO) 5.7 % (0.0-7.0); LYMPHOCYTES % (AUTO) 9.8 % (20.5-51.5); MEAN CORPUSCULAR HEMOGLOBIN 30.3 uug (24.7-32.8); MEAN CORPUSCULAR HGB CONC 33 g/dL (32.3-35.6); MEAN CORPUSCULAR VOLUME 90.7 fL (75.5-95.3); MONOCYTES % (AUTO) 9.4 % (0.0-11.0); NEUTROPHILS # (AUTO) 7.8 K/uL (1.8-8.9); NEUTROPHILS % (AUTO) 74.7 % (38.5-71.5); PLATELET COUNT (AUTO) 171 K/uL (179-408); WHITE BLOOD COUNT (AUTO) 10.4 K/uL (3.8-11.8)
[2017-05-12 07:51] LABS: HEMATOCRIT 20.6 % (31.2-41.9); RED BLOOD CELL COUNT(AUTO) 2.27 MIL/uL (3.63-4.92)
[2017-05-12 07:52] LABS: HEMOGLOBIN 6.9 g/dL (10.9-14.3)
--- NOTE | 2017-05-12 08:00 | NUR ---
awake, maintains eye contact when talked to but doesn't speak, on 2l/nc 02, repositioned for breakfast, feliz cath draining ivy urine, tele SR 90's, safety measures maintained, took very little of her apple sauce and orange juice, refused to open mouth after. Daughter here for a while and then left
--- NOTE | 2017-05-12 08:30 | NUR ---
informed Dr Holman of Hgb 6.9 and Hct 20.6- with orders to have i unit of PRBC with dialysis, family made aware
[2017-05-12 08:39] LABS: IRON, SERUM 33 ug/dL (50-175)
[2017-05-12] MEDS: CALCIUM CARBONATE 500 MG TABLET PO SCH (08:39)
[2017-05-12] MEDS: CHOLECALCIFEROL 1,000 UNIT TABLET PO SCH (08:39)
[2017-05-12] MEDS: MULTIVIT, IRON, MIN NO. 8, FA TABLET PO SCH (08:39)
[2017-05-12] MEDS: BETA CAROTENE/VIT C & E/MIN TABLET PO SCH ×2 (08:40→17:00)
[2017-05-12] MEDS: CYANOCOBALAMIN 1,000 MCG TABLET PO SCH (08:40)
[2017-05-12] MEDS: AMLODIPINE 5 MG TABLET PO SCH ×2 (08:40→18:59)
[2017-05-12] MEDS: DOCUSATE SODIUM 100 MG CAPSULE PO SCH ×2 (08:40→17:00)
[2017-05-12] MEDS: RIVASTIGMINE 4.6 MG PATCH TD SCH (08:40)
[2017-05-12 08:42] LABS: ALANINE AMINOTRANSFERASE 22 U/L (14-59); ALKALINE PHOSPHATASE 96 U/L (50-136); ASPARTATE AMINOTRANSFERASE 20 U/L (15-37); BILIRUBIN,TOTAL 1.1 mg/dL (0.2-1.0); CARBON DIOXIDE 21 mmol/L (21-32); CHLORIDE 108 mmol/L (98-107); CREATININE 5.8 mg/dL (0.6-1.3); FERRITIN 488 ng/mL (8-252); GLUCOSE 134 mg/dL (74-106); MAGNESIUM 1.9 mg/dL (1.8-2.4); PHOSPHOROUS 4.5 mg/dL (2.5-4.9); TOTAL PROTEIN, SERUM 5.9 g/dL (6.4-8.2); UREA NITROGEN, BLOOD 36 mg/dL (7-18)
[2017-05-12] MEDS: PROTEIN SUPPLEMENT (PROSTAT) 30 ML LIQUID PO SCH ×2 (08:48→17:00)
[2017-05-12] MEDS: CLOTRIMAZOLE 1% CREAM 30 GM TUBE TOP SCH ×2 (08:50→20:36)
[2017-05-12] MEDS: Z GUARD REMEDY PASTE 57 GM TUBE TOP SCH ×2 (08:51→20:36)
[2017-05-12 09:11] LABS: EOSINOPHILS % (MANUAL) 7 % (0-8); LYMPHOCYTES % (MANUAL) 12 % (20-40); MONOCYTES % (MANUAL) 8 % (2-10); NEUTROPHILS % (MANUAL) 73 % (42-75)
[2017-05-12 09:22] LABS: CREATINE KINASE, TOTAL 43 U/L (26-192)
--- NOTE | 2017-05-12 14:45 | NUR ---
dialysis nurse here, left femoral dialysis catheter intact
--- NOTE | 2017-05-12 17:15 | NUR ---
1 unit of PRBC started per dialysis nurse
--- NOTE | 2017-05-12 17:38 | NUR ---
1 unit of PRBC completed, no reaction noted, dialysis in progress
--- NOTE | 2017-05-12 18:54 | NUR ---
dialysis completed, took out 1.5 liters per HD nurse, no distress noted, all needs attended and met
--- NOTE | 2017-05-12 20:00 | NUR ---
NSG: NO ACUTE DISTRESS NOTED. TOOK PO MEDS WITH DAUGHTER. TELE, SR. CONT TO MONITOR.
[2017-05-12] MEDS: MIRTAZAPINE 15 MG TABLET PO SCH (20:36)
[2017-05-12] MEDS: FLUCONAZOLE 100 MG TABLET PO SCH (20:36)
[2017-05-13] VITALS: BP 117/46
[2017-05-13] MEDS: IPRATROPIUM BROMIDE 0.5 MG/2.5 ML NEBU NEB SCH ×6 (03:58→22:55)
[2017-05-13] MEDS: ALBUTEROL SULFATE 2.5 MG/ 0.5 ML NEBU NEB SCH ×6 (03:58→22:55)
[2017-05-13 04:00] VITALS: BP 122/61
--- NOTE | 2017-05-13 05:31 | NUR ---
nsg: all needs attended. kept clean and dry. repositioned.
[2017-05-13] MEDS: PANTOPRAZOLE SODIUM 40 MG TABLET.DR PO SCH (06:10)
[2017-05-13 06:53] LABS: BASOPHILS % (AUTO) 0.4 % (0.0-2.0); EOSINOPHILS # (AUTO) 0.8 K/uL (0.0-0.7); EOSINOPHILS % (AUTO) 7.7 % (0.0-7.0); HEMATOCRIT 28.6 % (31.2-41.9); HEMOGLOBIN 9.5 g/dL (10.9-14.3); LYMPHOCYTES # (AUTO) 1.2 K/uL (20.0-40.0); LYMPHOCYTES % (AUTO) 11.3 % (20.5-51.5); MEAN CORPUSCULAR HEMOGLOBIN 28.3 uug (24.7-32.8); MEAN CORPUSCULAR HGB CONC 33 g/dL (32.3-35.6); MEAN CORPUSCULAR VOLUME 85.6 fL (75.5-95.3); MONOCYTES # (AUTO) 1.1 K/uL (2.0-10.0); MONOCYTES % (AUTO) 10.4 % (0.0-11.0); NEUTROPHILS # (AUTO) 7.6 K/uL (1.8-8.9); NEUTROPHILS % (AUTO) 70.2 % (38.5-71.5); PLATELET COUNT (AUTO) 117 K/uL (179-408); RED BLOOD CELL COUNT(AUTO) 3.34 MIL/uL (3.63-4.92); WHITE BLOOD COUNT (AUTO) 10.8 K/uL (3.8-11.8)
[2017-05-13 07:10] LABS: ALANINE AMINOTRANSFERASE 21 U/L (14-59); ALKALINE PHOSPHATASE 99 U/L (50-136); ASPARTATE AMINOTRANSFERASE 19 U/L (15-37); BILIRUBIN,TOTAL 0.9 mg/dL (0.2-1.0); CARBON DIOXIDE 27 mmol/L (21-32); CHLORIDE 104 mmol/L (98-107); CREATININE 4.3 mg/dL (0.6-1.3); GLUCOSE 140 mg/dL (74-106); MAGNESIUM 1.8 mg/dL (1.8-2.4); PHOSPHOROUS 4.2 mg/dL (2.5-4.9); POTASSIUM 3.6 mmol/L (3.5-5.1); TOTAL PROTEIN, SERUM 6.3 g/dL (6.4-8.2); UREA NITROGEN, BLOOD 28 mg/dL (7-18)
[2017-05-13] MEDS: RIVASTIGMINE 4.6 MG PATCH TD SCH (08:32)
[2017-05-13] MEDS: MULTIVIT, IRON, MIN NO. 8, FA TABLET PO SCH (08:33)
[2017-05-13] MEDS: CHOLECALCIFEROL 1,000 UNIT TABLET PO SCH (08:33)
[2017-05-13] MEDS: CYANOCOBALAMIN 1,000 MCG TABLET PO SCH (08:33)
[2017-05-13] MEDS: AMLODIPINE 5 MG TABLET PO SCH (08:36)
[2017-05-13] MEDS: CALCIUM CARBONATE 500 MG TABLET PO SCH (08:36)
[2017-05-13] MEDS: DOCUSATE SODIUM 100 MG CAPSULE PO SCH ×2 (08:36→16:12)
[2017-05-13] MEDS: BETA CAROTENE/VIT C & E/MIN TABLET PO SCH ×2 (08:36→16:12)
[2017-05-13] MEDS: PROTEIN SUPPLEMENT (PROSTAT) 30 ML LIQUID PO SCH ×3 (08:48→17:30)
[2017-05-13] MEDS: Z GUARD REMEDY PASTE 57 GM TUBE TOP SCH ×2 (08:57→20:32)
[2017-05-13] MEDS: CLOTRIMAZOLE 1% CREAM 30 GM TUBE TOP SCH ×2 (08:57→20:53)
--- NOTE | 2017-05-13 09:30 | NUR ---
Received patient awake on bed, maintains eye contact when spoken to. Tele SR 90's. No acute distress noted. Respirations are even and unlabored. Otero catheter intact, draining well. All comfort measures provided. Safety and precautions reinforced. Daughter at bedside. Call light within reach. Will continue to monitor closely
[2017-05-13 10:08] LABS: COMPLEMENT, C3 SERUM 130 mg/dL (82-167); COMPLEMENT, C4 SERUM 34 mg/dL (14-44)
[2017-05-13 11:55] VITALS: BP 135/53
[2017-05-13] MEDS: ACETAMINOPHEN 650 MG SUPP.RECT RC PRN (15:39)
[2017-05-13 15:50] VITALS: BP 140/71
[2017-05-13 20:18] VITALS: BP 189/88
[2017-05-13] MEDS: FLUCONAZOLE 100 MG TABLET PO SCH (20:32)
[2017-05-13] MEDS: MIRTAZAPINE 15 MG TABLET PO SCH (20:32)
[2017-05-13] MEDS: hydrALAZINE HCL 25 MG TABLET PO PRN (20:42)
--- NOTE | 2017-05-13 21:00 | NUR ---
Patient reassignment. Endorsed patient to registry Nikunj Shoemaker RN. Patient's BP elevated 189/80, tele sinus tachy 105. Temp at 100.4F oral route. Patient is non verbal. Medications administered as ordered, pt keeps her mouth closed and teeth clenched, spits out medications, uncooperative. Endorsed to business information analyst and nurse charge rn pt's need of PRN meds for constipation/bowel regulation. Patient is alert, in no acute distress.
[2017-05-14] VITALS (7 sets, daily range): BP systolic 94–168; BP diastolic 43–80
[2017-05-14] MEDS ORDERED: BISACODYL 10 MG SUPP.RECT RC ONE ×2 (02:00→05:05)
[2017-05-14] MEDS: ALBUTEROL SULFATE 2.5 MG/ 0.5 ML NEBU NEB SCH ×6 (02:45→23:29)
[2017-05-14] MEDS: IPRATROPIUM BROMIDE 0.5 MG/2.5 ML NEBU NEB SCH ×6 (02:45→23:29)
[2017-05-14] MEDS: PANTOPRAZOLE SODIUM 40 MG TABLET.DR PO SCH (06:18)
[2017-05-14 08:07] LABS: A/G RATIO 0.9 (0.7-1.7); ALBUMIN 2.6 g/dL (2.9-4.4); ALPHA-1-GLOBULIN 0.4 g/dL (0.0-0.4); ALPHA-2-GLOBULIN 0.8 g/dL (0.4-1.0); BETA GLOBULIN 0.9 g/dL (0.7-1.3); GAMMA GLOBULIN 0.6 g/dL (0.4-1.8); GLOBULIN, TOTAL 2.8 g/dL (2.2-3.9); M-SPIKE Not Observed g/dL (Not Observed)
[2017-05-14] MEDS: CALCIUM CARBONATE 500 MG TABLET PO SCH ×3 (08:24→13:09)
[2017-05-14] MEDS: AMLODIPINE 5 MG TABLET PO SCH ×2 (08:24→17:00)
[2017-05-14] MEDS: hydrALAZINE HCL 25 MG TABLET PO PRN (08:24)
[2017-05-14] MEDS: DOCUSATE SODIUM 100 MG CAPSULE PO SCH ×4 (08:24→17:00)
[2017-05-14] MEDS: BETA CAROTENE/VIT C & E/MIN TABLET PO SCH ×4 (08:24→17:00)
[2017-05-14] MEDS: CYANOCOBALAMIN 1,000 MCG TABLET PO SCH ×3 (08:25→13:09)
[2017-05-14] MEDS: CHOLECALCIFEROL 1,000 UNIT TABLET PO SCH ×3 (08:25→13:08)
[2017-05-14] MEDS: MULTIVIT, IRON, MIN NO. 8, FA TABLET PO SCH ×3 (08:25→13:09)
[2017-05-14] MEDS: RIVASTIGMINE 4.6 MG PATCH TD SCH (08:25)
[2017-05-14] MEDS: Z GUARD REMEDY PASTE 57 GM TUBE TOP SCH ×2 (08:26→20:01)
[2017-05-14] MEDS: PROTEIN SUPPLEMENT (PROSTAT) 30 ML LIQUID PO SCH ×2 (08:27→17:00)
[2017-05-14] MEDS: CLOTRIMAZOLE 1% CREAM 30 GM TUBE TOP SCH ×2 (08:27→20:02)
--- NOTE | 2017-05-14 08:30 | NUR ---
asleep but arouses easily when name is called and pt touched, BP 168/68, attempted top give BP meds with food but refused, will try again later with other am meds, daughter here, visiting, informed of pt's refusing to take meds and breakfast- 0n 2l/nc 02, head of bed elevated, tele ST 90's, safety measures maintained
--- NOTE | 2017-05-14 08:50 | NUR ---
Dialysis nurse here- right femoral dialysis cath intact- will try to give meds after HD
--- NOTE | 2017-05-14 10:30 | NUR ---
HD nurse said BP dropped during dialysis and cut short treatment, no fluids taken out. BP rechecked- 117/50, repositioned, awake and caregiver here- will monitor closely, tele SR
[2017-05-14 11:58] LABS: ALANINE AMINOTRANSFERASE 19 U/L (14-59); ALKALINE PHOSPHATASE 109 U/L (50-136); ASPARTATE AMINOTRANSFERASE 22 U/L (15-37); BILIRUBIN,TOTAL 0.9 mg/dL (0.2-1.0); CARBON DIOXIDE 28 mmol/L (21-32); CHLORIDE 105 mmol/L (98-107); CREATININE 3.7 mg/dL (0.6-1.3); GLUCOSE 179 mg/dL (74-106); MAGNESIUM 1.8 mg/dL (1.8-2.4); PHOSPHOROUS 4.1 mg/dL (2.5-4.9); POTASSIUM 4.1 mmol/L (3.5-5.1); TOTAL PROTEIN, SERUM 6.7 g/dL (6.4-8.2); UREA NITROGEN, BLOOD 34 mg/dL (7-18)
[2017-05-14 12:41] LABS: EOSINOPHILS # (AUTO) 0.6 K/uL (0.0-0.7); HEMOGLOBIN 9.2 g/dL (10.9-14.3); MONOCYTES # (AUTO) 1.1 K/uL (2.0-10.0); NEUTROPHILS % (AUTO) 79.5 % (38.5-71.5)
[2017-05-14 12:45] LABS: BASOPHILS # (AUTO) 0.1 K/uL (0.0-8.0); BASOPHILS % (AUTO) 0.4 % (0.0-2.0); EOSINOPHILS % (AUTO) 4.7 % (0.0-7.0); LYMPHOCYTES % (AUTO) 7.3 % (20.5-51.5); MEAN CORPUSCULAR HEMOGLOBIN 28.1 uug (24.7-32.8); MEAN CORPUSCULAR HGB CONC 33 g/dL (32.3-35.6); MEAN CORPUSCULAR VOLUME 85.8 fL (75.5-95.3); MONOCYTES % (AUTO) 8.1 % (0.0-11.0); NEUTROPHILS # (AUTO) 10.8 K/uL (1.8-8.9); PLATELET COUNT (AUTO) 143 K/uL (179-408); RED BLOOD CELL COUNT(AUTO) 3.26 MIL/uL (3.63-4.92); WHITE BLOOD COUNT (AUTO) 13.6 K/uL (3.8-11.8)
--- NOTE | 2017-05-14 13:00 | NUR ---
fed by caregiver with lunch, took also am meds except Norvasc, aspiration precautions observed
[2017-05-14] MEDS: ACETAMINOPHEN 325 MG TABLET PO PRN (13:06)
--- NOTE | 2017-05-14 18:00 | NUR ---
refused to eat and take scheduled meds, caregiver at bedside convincing to eat but refused, closed her mouth, no distress noted
[2017-05-14] MEDS: FLUCONAZOLE 100 MG TABLET PO SCH (20:00)
[2017-05-14] MEDS: MIRTAZAPINE 15 MG TABLET PO SCH (20:00)
--- NOTE | 2017-05-14 20:00 | NUR ---
Pt able to take meds, caregiver assisted. Dr. Liu seen patient.
[2017-05-15] MEDS: ALBUTEROL SULFATE 2.5 MG/ 0.5 ML NEBU NEB SCH ×6 (04:07→22:45)
[2017-05-15] MEDS: IPRATROPIUM BROMIDE 0.5 MG/2.5 ML NEBU NEB SCH ×6 (04:07→22:46)
--- NOTE | 2017-05-15 04:30 | NUR ---
Provided bed bath for patient, patient tolerated well, no SOB or discomfort
--- NOTE | 2017-05-15 06:00 | NUR ---
Patient slept well, no acute distress, no SOB. Breathing tx as ordered. Right femoral HD cath intact, no redness/swelling. Otero cath intact/patent, draining yellow urine. Patient kept clean/dry, repositioned for comfort, offload heels. Dressing on left heel clean and dry. Provided fluids. Bed alarm on, will continue to monitor.
[2017-05-15] MEDS: PANTOPRAZOLE SODIUM 40 MG TABLET.DR PO SCH (06:04)
[2017-05-15 06:21] VITALS: BP 132/46
[2017-05-15 07:01] LABS: BASOPHILS % (AUTO) 0.3 % (0.0-2.0); EOSINOPHILS % (AUTO) 10.4 % (0.0-7.0); HEMOGLOBIN 7.5 G/DL (12.0-16.0); LYMPHOCYTES # (AUTO) 1.4 K/UL (0.8-4.8); MEAN CORPUSCULAR HEMOGLOBIN 27.5 UUG (27.0-31.0); MEAN CORPUSCULAR HGB CONC 32 g/dL (32.0-37.0); MEAN CORPUSCULAR VOLUME 85.3 FL (81.0-99.0); MONOCYTES % (AUTO) 9.9 % (0.0-11.0); NEUTROPHILS # (AUTO) 6.6 K/UL (1.8-8.9); NEUTROPHILS % (AUTO) 65.4 % (38.5-71.5); PLATELET COUNT (AUTO) 149 K/UL (150-450); RED BLOOD CELL COUNT(AUTO) 2.72 MIL/UL (4.2-5.4)
--- NOTE | 2017-05-15 07:10 | NUR ---
RECEIVED REPORT FROM WIRE COATING OPERATOR METAL NURSE, PATIENT IN BED AWAKE, NO EVIDENCE OF DISTRESS NOTED, BED IN LOW POSITION, SIDE RAILS UP X2. HYLTON DRAINING, IV INTACT. OXYGEN 2L
[2017-05-15 07:15] LABS: ALANINE AMINOTRANSFERASE 16 U/L (14-59); ALKALINE PHOSPHATASE 88 U/L (50-136); ASPARTATE AMINOTRANSFERASE 22 U/L (15-37); BILIRUBIN,TOTAL 0.6 mg/dL (0.2-1.0); CARBON DIOXIDE 27 mmol/L (21-32); CHLORIDE 103 mmol/L (98-107); GLUCOSE 164 mg/dL (74-106); MAGNESIUM 1.8 mg/dL (1.8-2.4); PHOSPHOROUS 4.4 mg/dL (2.5-4.9); POTASSIUM 3.7 mmol/L (3.5-5.1); UREA NITROGEN, BLOOD 40 mg/dL (7-18)
[2017-05-15 08:09] LABS: HEMATOCRIT 23.2 % (37-47)
--- NOTE | 2017-05-15 08:18 | NUR ---
REPORTED CRITICAL LABS TO [facility] NEPHROLOGY.
[2017-05-15] MEDS: AMLODIPINE 5 MG TABLET PO SCH ×3 (09:00→17:24)
[2017-05-15] MEDS ORDERED: FAMOTIDINE. 20 MG/2 ML VIAL IV SCH (09:00)
[2017-05-15] MEDS: FAMOTIDINE. 20 MG/2 ML VIAL IV SCH ×2 (09:38→20:31)
[2017-05-15] MEDS: CYANOCOBALAMIN 1,000 MCG TABLET PO SCH (09:39)
[2017-05-15] MEDS: DOCUSATE SODIUM 100 MG CAPSULE PO SCH ×2 (09:39→17:24)
[2017-05-15] MEDS: PROTEIN SUPPLEMENT (PROSTAT) 30 ML LIQUID PO SCH ×2 (09:40→17:23)
[2017-05-15] MEDS: CALCIUM CARBONATE 500 MG TABLET PO SCH (09:40)
[2017-05-15] MEDS: BETA CAROTENE/VIT C & E/MIN TABLET PO SCH ×2 (09:40→17:24)
[2017-05-15] MEDS: CLOTRIMAZOLE 1% CREAM 30 GM TUBE TOP SCH ×2 (09:40→20:33)
[2017-05-15] MEDS: RIVASTIGMINE 4.6 MG PATCH TD SCH (09:40)
[2017-05-15] MEDS: MULTIVIT, IRON, MIN NO. 8, FA TABLET PO SCH (09:40)
[2017-05-15] MEDS: Z GUARD REMEDY PASTE 57 GM TUBE TOP SCH ×2 (09:41→20:34)
[2017-05-15] MEDS: CHOLECALCIFEROL 1,000 UNIT TABLET PO SCH (09:47)
[2017-05-15 11:53] VITALS: BP 126/48
[2017-05-15 13:52] LABS: BASOPHILS # (AUTO) 0.1 K/uL (0.0-8.0); BASOPHILS % (AUTO) 0.5 % (0.0-2.0); EOSINOPHILS # (AUTO) 1.1 K/uL (0.0-0.7); EOSINOPHILS % (AUTO) 9.7 % (0.0-7.0); LYMPHOCYTES # (AUTO) 1.3 K/UL (0.8-4.8); LYMPHOCYTES % (AUTO) 11.4 % (20.5-51.5); MEAN CORPUSCULAR HEMOGLOBIN 27.8 UUG (27.0-31.0); MEAN CORPUSCULAR HGB CONC 32 g/dL (32.0-37.0); MEAN CORPUSCULAR VOLUME 85.6 FL (81.0-99.0); MONOCYTES # (AUTO) 0.9 K/UL (0.1-1.30); MONOCYTES % (AUTO) 7.9 % (0.0-11.0); NEUTROPHILS # (AUTO) 7.7 K/UL (1.8-8.9); NEUTROPHILS % (AUTO) 70.5 % (38.5-71.5); PLATELET COUNT (AUTO) 162 K/UL (150-450); RED BLOOD CELL COUNT(AUTO) 2.79 MIL/UL (4.2-5.4); WHITE BLOOD COUNT (AUTO) 11.1 K/UL (4.0-11.2)
[2017-05-15 14:04] LABS: HEMATOCRIT 23.9 % (37-47); HEMOGLOBIN 7.7 G/DL (12.0-16.0)
[2017-05-15 15:56] VITALS: BP 139/64
--- NOTE | 2017-05-15 18:03 | NUR ---
PATIENT HAS BEEN DOING WELL, NO EVIDENCE OF DISTRESS NOTED, BED IN LOW POSITION, SIDE RAILS UP X2. SITTER AT BEDSIDE THROUGHOUT THE DAY.
[2017-05-15 20:00] VITALS: BP 132/48
--- NOTE | 2017-05-15 20:00 | NUR ---
PATIENT IS AWAKE, BUT NOT ORIENTED. PATIENT HAS DIFFICULT TIME VERBALIZING. DAUGHTER AT BEDSIDE. PATIENT IS IN STABLE CONDITION, NO S/S OF DISTRESS. VSS. PATIENT IN SAFE ENVIRONMENT/CONDITION. BED IN LOCKED/LOW POSITION WITH SIDE RAILS UP X2, CALL LIGHT WITHIN REACH. SAFETY AND COMFORT WILL BE PROVIDED THROUGHOUT SHIFT.
[2017-05-15] MEDS: MIRTAZAPINE 15 MG TABLET PO SCH ×2 (20:31→21:00)
[2017-05-15] MEDS: FLUCONAZOLE 100 MG TABLET PO SCH ×2 (20:31→20:59)
--- NOTE | 2017-05-15 21:00 | NUR ---
NON-MEDICATION ADMINISTRATION: - DIFLUCAN 100 MG & - REMERON 7.5 MG. PATIENT REFUSES TO OPEN MOUTH TO TAKE PO MEDICATION PEPCID 10 MG IV WAS ABLE TO BE ADMINISTERED.
[2017-05-16] VITALS (8 sets, daily range): BP systolic 118–140; BP diastolic 39–68
[2017-05-16] MEDS: IPRATROPIUM BROMIDE 0.5 MG/2.5 ML NEBU NEB SCH ×6 (02:59→23:45)
[2017-05-16] MEDS: ALBUTEROL SULFATE 2.5 MG/ 0.5 ML NEBU NEB SCH ×6 (02:59→23:45)
[2017-05-16 06:08] LABS: BASOPHILS % (AUTO) 0.5 % (0.0-2.0); EOSINOPHILS # (AUTO) 0.9 K/uL (0.0-0.7); EOSINOPHILS % (AUTO) 11.5 % (0.0-7.0); HEMATOCRIT 21.7 % (31.2-41.9); LYMPHOCYTES # (AUTO) 1.1 K/uL (20.0-40.0); LYMPHOCYTES % (AUTO) 14.3 % (20.5-51.5); MEAN CORPUSCULAR HEMOGLOBIN 28.1 uug (24.7-32.8); MEAN CORPUSCULAR HGB CONC 33 g/dL (32.3-35.6); MEAN CORPUSCULAR VOLUME 86.3 fL (75.5-95.3); MONOCYTES # (AUTO) 0.8 K/uL (2.0-10.0); MONOCYTES % (AUTO) 9.7 % (0.0-11.0); NEUTROPHILS # (AUTO) 5.2 K/uL (1.8-8.9); PLATELET COUNT (AUTO) 147 K/uL (179-408); RED BLOOD CELL COUNT(AUTO) 2.51 MIL/uL (3.63-4.92)
--- NOTE | 2017-05-16 06:09 | NUR ---
PATIENT SLEPT THROUGH MAJORITY OF THE NIGHT. APPEARS TO BE RESTING COMFORTABLY IN BED AT THE MOMENT. ON O2 2L NC. NO S/S OF DISTRESS. STABLE CONDITION. PATIENT IS IN A SAFE ENVIRONMENT/CONDITION. BED IN LOCKED/LOW POSITION WITH SIDE RAILS UP X2, CALL LIGHT WITHIN REACH. BED ALARM ON. SAFETY AND COMFORT PROVIDED THROUGHOUT SHIFT.
[2017-05-16 06:28] LABS: IRON, SERUM 24 ug/dL (50-175)
--- NOTE | 2017-05-16 06:29 | NUR ---
DR. PARR CONTACTED BACK AT 0629 WITH ORDER: 1 UNIT PRBC.
--- NOTE | 2017-05-16 06:29 | NUR ---
DR. PARR CONTACTED BACK AT 0629 WITH ORDER FOLLOWING CRITICAL LAB VALUE REPORT: 1 UNIT PRBC. WILL INFORM NURSE AT NEXT SHIFT OF OCCURRENCE AND ENDORSE ORDER.
--- NOTE | 2017-05-16 06:37 | NUR ---
CRITICAL LAB VALUE RECEIVED FROM KAYLEN AT LABORATORY AT 0622: HEMOGLOBIN 7.0 ; HEMATOCRIT 21.7 READ-BACK COMPLETED WITH SCOTT. NARANJO CONTACTED AT 0628. AWAITING POSSIBLE ORDERS.
--- NOTE | 2017-05-16 07:00 | NUR ---
CRITICAL LAB VALUE RESULTS HEMOGLOBIN 7.0, HEMATOCRIT 21.7 DR. MCKEE WAS INCORRECT MD CONTACTED. DR. REDMOND IS CORRECT DOCTOR. NURSE NEXT SHIFT INFORMED, ENDORSED AND WILL CONTACT DR. REDMOND ABOUT CRITICAL LAB VALUES OF PATIENT (HEMOGLOBIN AND HEMATOCRIT).
--- NOTE | 2017-05-16 07:30 | NUR ---
RECEIVED REPORT FROM PRODUCTS MECHANICAL DESIGN ENGINEER NURSE, PATIENT IN BED ASLEEP, NO EVIDENCE OF DISTRESS NOTED, BED IN LOW POSITION, SIDE RAILS UP X2. CALLED DR. PINA CLERK OF SUPERIOR [employer] FOR CRITICAL LAB VALUE ASSESSMENT.
[2017-05-16 07:36] LABS: ALANINE AMINOTRANSFERASE 17 U/L (14-59); ALKALINE PHOSPHATASE 84 U/L (50-136); ASPARTATE AMINOTRANSFERASE 23 U/L (15-37); BILIRUBIN,TOTAL 0.6 mg/dL (0.2-1.0); CARBON DIOXIDE 27 mmol/L (21-32); CHLORIDE 101 mmol/L (98-107); CREATININE 4.1 mg/dL (0.6-1.3); FERRITIN 446 ng/mL (8-252); GLUCOSE 142 mg/dL (74-106); MAGNESIUM 1.8 mg/dL (1.8-2.4); PHOSPHOROUS 4.3 mg/dL (2.5-4.9); POTASSIUM 3.8 mmol/L (3.5-5.1); TOTAL PROTEIN, SERUM 5.9 g/dL (6.4-8.2); UREA NITROGEN, BLOOD 43 mg/dL (7-18)
--- NOTE | 2017-05-16 08:00 | NUR ---
FACE TO FACE REPORT TO DR REDMOND ABOUT CRITICAL LABS, INFORMED THAT HE WILL ENTER ORDERS.
[2017-05-16] MEDS: CHOLECALCIFEROL 1,000 UNIT TABLET PO SCH (09:00)
[2017-05-16] MEDS: BETA CAROTENE/VIT C & E/MIN TABLET PO SCH ×2 (09:00→17:45)
[2017-05-16] MEDS: MULTIVIT, IRON, MIN NO. 8, FA TABLET PO SCH (09:00)
[2017-05-16] MEDS: CYANOCOBALAMIN 1,000 MCG TABLET PO SCH (09:00)
[2017-05-16] MEDS: DOCUSATE SODIUM 100 MG CAPSULE PO SCH ×2 (09:00→17:45)
[2017-05-16] MEDS: CALCIUM CARBONATE 500 MG TABLET PO SCH (09:00)
[2017-05-16] MEDS: PROTEIN SUPPLEMENT (PROSTAT) 30 ML LIQUID PO SCH ×2 (09:56→17:46)
[2017-05-16] MEDS: Z GUARD REMEDY PASTE 57 GM TUBE TOP SCH ×2 (09:57→20:38)
[2017-05-16] MEDS: CLOTRIMAZOLE 1% CREAM 30 GM TUBE TOP SCH ×2 (09:57→20:37)
[2017-05-16] MEDS: AMLODIPINE 5 MG TABLET PO SCH ×2 (09:59→17:45)
[2017-05-16] MEDS: RIVASTIGMINE 4.6 MG PATCH TD SCH (09:59)
[2017-05-16] MEDS: FAMOTIDINE. 20 MG/2 ML VIAL IV SCH ×2 (09:59→20:36)
--- NOTE | 2017-05-16 16:05 | NUR ---
OB stool collected and hand delivered to lab.
[2017-05-16 16:17] LABS: *OCCULT BLOOD STOOL NEGATIVE (NEGATIVE)
--- NOTE | 2017-05-16 18:52 | NUR ---
PATIENT HAS BEEN COOPERATIVE WITH CARE, NO EVIDENCE OF DISTRESS NOTED, BED IN LOW POSITION, SIDE RAILS UP X2. ATE BREAKFAST AND LUNCH ALMOST 100%. SITTER AT BEDSIDE, ALL NEEDS MET.
[2017-05-16] MEDS: MIRTAZAPINE 15 MG TABLET PO SCH (20:36)
[2017-05-16] MEDS: FLUCONAZOLE 100 MG TABLET PO SCH (20:37)
[2017-05-17] MEDS: ALBUTEROL SULFATE 2.5 MG/ 0.5 ML NEBU NEB SCH ×6 (03:06→22:45)
[2017-05-17] MEDS: IPRATROPIUM BROMIDE 0.5 MG/2.5 ML NEBU NEB SCH ×6 (03:06→22:44)
[2017-05-17 04:00] VITALS: BP 146/54
[2017-05-17] MEDS: TRAMADOL HCL 50 MG TABLET PO PRN (04:52)
--- NOTE | 2017-05-17 05:48 | NUR ---
PT SLEPT WELL THROUGH THE NIGHT AND WAS EASILY AWOKEN, PT IN THE FRONT END SOFTWARE DEVELOPER WAS MOANING AND YELLING "OW" PT WAS OFFERED PAIN MEDICATION WHEN SHE FIRST TOOK THEN SPIT OUT. PT WAS REPOSITIONED AND PT STOPPED MOANING IN PAIN. PT DENIED HAVING ANY DIFFICULTY BREATHING. WOUND CARE DONE. ALL NEEDS MET, SAFETY MEASURES ARE IN PLACE, CALL LIGHT WITHIN REACH, BED ALARM IS ON.
[2017-05-17] MEDS: ALENDRONATE SODIUM 70 MG TABLET PO SCH (06:12)
[2017-05-17 06:33] LABS: BASOPHILS # (AUTO) 0.1 K/uL (0.0-8.0); BASOPHILS % (AUTO) 0.6 % (0.0-2.0); EOSINOPHILS # (AUTO) 1.2 K/uL (0.0-0.7); EOSINOPHILS % (AUTO) 11.5 % (0.0-7.0); HEMATOCRIT 28.6 % (31.2-41.9); HEMOGLOBIN 9.7 g/dL (10.9-14.3); LYMPHOCYTES # (AUTO) 1.4 K/uL (20.0-40.0); MEAN CORPUSCULAR HEMOGLOBIN 29.1 uug (24.7-32.8); MEAN CORPUSCULAR HGB CONC 34 g/dL (32.3-35.6); MEAN CORPUSCULAR VOLUME 85.9 fL (75.5-95.3); MONOCYTES # (AUTO) 1.1 K/uL (2.0-10.0); MONOCYTES % (AUTO) 10.8 % (0.0-11.0); NEUTROPHILS # (AUTO) 6.7 K/uL (1.8-8.9); NEUTROPHILS % (AUTO) 64.1 % (38.5-71.5); PLATELET COUNT (AUTO) 165 K/uL (179-408); RED BLOOD CELL COUNT(AUTO) 3.33 MIL/uL (3.63-4.92); WHITE BLOOD COUNT (AUTO) 10.5 K/uL (3.8-11.8)
[2017-05-17 06:50] LABS: ALANINE AMINOTRANSFERASE 24 U/L (14-59); ALKALINE PHOSPHATASE 100 U/L (50-136); ASPARTATE AMINOTRANSFERASE 26 U/L (15-37); BILIRUBIN,TOTAL 0.7 mg/dL (0.2-1.0); CARBON DIOXIDE 27 mmol/L (21-32); CHLORIDE 103 mmol/L (98-107); CREATININE 3.8 mg/dL (0.6-1.3); GLUCOSE 173 mg/dL (74-106); MAGNESIUM 1.6 mg/dL (1.8-2.4); PHOSPHOROUS 3.7 mg/dL (2.5-4.9); POTASSIUM 3.9 mmol/L (3.5-5.1); TOTAL PROTEIN, SERUM 6.4 g/dL (6.4-8.2); UREA NITROGEN, BLOOD 44 mg/dL (7-18)
--- NOTE | 2017-05-17 07:00 | NUR ---
RECEIVED REPORT FROM ELEMENTARY SCHOOL TEACHER NURSE, PATIENT IN BED AWAKE, NO EVIDENCE OF DISTRESS NOTED, BED IN LOW POSITION, SIDE RAILS UP X2. RECEIVING BREATHING TREATMENT.
[2017-05-17] MEDS: AMLODIPINE 5 MG TABLET PO SCH (08:12)
[2017-05-17] MEDS: FAMOTIDINE. 20 MG/2 ML VIAL IV SCH ×2 (08:12→20:50)
[2017-05-17] MEDS: CALCIUM CARBONATE 500 MG TABLET PO SCH (08:13)
[2017-05-17] MEDS: Z GUARD REMEDY PASTE 57 GM TUBE TOP SCH ×2 (08:13→20:51)
[2017-05-17] MEDS: RIVASTIGMINE 4.6 MG PATCH TD SCH (08:13)
[2017-05-17] MEDS: CHOLECALCIFEROL 1,000 UNIT TABLET PO SCH (08:13)
[2017-05-17] MEDS: PROTEIN SUPPLEMENT (PROSTAT) 30 ML LIQUID PO SCH ×2 (08:13→16:37)
[2017-05-17] MEDS: DOCUSATE SODIUM 100 MG CAPSULE PO SCH ×2 (08:13→16:37)
[2017-05-17] MEDS: CYANOCOBALAMIN 1,000 MCG TABLET PO SCH (08:13)
[2017-05-17] MEDS: ACETAMINOPHEN 325 MG TABLET PO PRN (08:13)
[2017-05-17] MEDS: CLOTRIMAZOLE 1% CREAM 30 GM TUBE TOP SCH ×2 (08:13→20:51)
[2017-05-17] MEDS: MULTIVIT, IRON, MIN NO. 8, FA TABLET PO SCH (08:13)
[2017-05-17] MEDS: BETA CAROTENE/VIT C & E/MIN TABLET PO SCH ×2 (08:13→16:37)
[2017-05-17 08:14] LABS: BAND % (MANUAL) 1 % (0-10); EOSINOPHILS % (MANUAL) 12 % (0-8); LYMPHOCYTES % (MANUAL) 13 % (20-40); METAMYELOCYTES % 2 % (0-1); MONOCYTES % (MANUAL) 6 % (2-10); NEUTROPHILS % (MANUAL) 66 % (42-75)
[2017-05-17 11:27] VITALS: BP 103/44
[2017-05-17] MEDS ORDERED: MAGNESIUM SULFATE/D5W 100 ML IV SCH (12:30)
[2017-05-17] MEDS ORDERED: EPOETIN ALFA 20,000 UNIT/ML ML SQ ONE ×2 (12:30→13:00)
[2017-05-17] MEDS: NITROGLYCERIN OINT 1 GM PACKET TP SCH ×2 (13:15→18:19)
[2017-05-17] MEDS ORDERED: FLUC100T PO (14:57)
[2017-05-17] MEDS ORDERED: FAMO-108 PO (14:57)
[2017-05-17] MEDS ORDERED: HYDR25TA86 PO (14:57)
[2017-05-17] MEDS ORDERED: MENT71OI TOP (14:57)
[2017-05-17] MEDS ORDERED: AMLO2.5T PO (14:57)
[2017-05-17] MEDS ORDERED: CLOT30CR24 TOP (14:57)
[2017-05-17 15:41] VITALS: BP 122/44
[2017-05-17] MEDS ORDERED: AMLODIPINE 5 MG TABLET PO SCH (17:00)
--- NOTE | 2017-05-17 17:59 | NUR ---
DIALYSIS NURSE WILL BE HERE TO TAKE OUT THE DIALYSIS PORT THAT HAD BEEN INSERTED EARLIER IN THE WEEK. PATIENT'S FAMILY WISHES FOR THE PATIENT TO RETURN TO THE [facility] HOME SOON POSSIBLE. DISCHARGE ORDERS HAVE ALREADY BEEN PROCESSED, WAITING ON ARRIVAL OF DIALYSIS NURSE.
[2017-05-17 19:00] VITALS: BP 149/56
--- NOTE | 2017-05-17 20:00 | NUR ---
PATIENT VERY SLEEPY,ON O2 2L/M VIA N/C ,HYLTON CATHETER INTACT DRAINAGE CLEAR YELLOWISH ADEQUATE URINE,PATIENT APPEARS COMFORTABLE,
[2017-05-17] MEDS: FLUCONAZOLE 100 MG TABLET PO SCH (20:50)
[2017-05-17] MEDS: MIRTAZAPINE 15 MG TABLET PO SCH (20:50)
[2017-05-17] MEDS: AMLODIPINE 2.5 MG TABLET PO SCH (20:51)
--- NOTE | 2017-05-17 22:25 | NUR ---
RIGHT FEM SUE CATHETER REMOVED BY COMPUGRAPH OPERATOR, PRESSURE DRESSING APPLIED,NO BLEEDING NOTED.
--- NOTE | 2017-05-17 23:50 | NUR ---
HYLTON CATHETER REMOVED,300 ML URINE U/P,PATIENT ABLE TO TAKE PARTIAL OF CRUSHED MEDICATION AND SPLIT OUT,ASPIRATION PRECAUTIONS OBSERVED.BED ALARM ON.
[2017-05-18] MEDS: NITROGLYCERIN OINT 1 GM PACKET TP SCH ×3 (00:12→12:00)
[2017-05-18 04:00] VITALS: BP 139/59
[2017-05-18] MEDS: IPRATROPIUM BROMIDE 0.5 MG/2.5 ML NEBU NEB SCH ×4 (04:07→14:47)
[2017-05-18] MEDS: ALBUTEROL SULFATE 2.5 MG/ 0.5 ML NEBU NEB SCH ×4 (04:07→14:47)
--- NOTE | 2017-05-18 05:30 | NUR ---
patient already voided,o2 sat 97% on o2 at 3l/m via n/c ,no acute distress noted,patient has been sleep well through the night,vital signs remain stable.
--- NOTE | 2017-05-18 07:15 | NUR ---
RECEIVED REPORT FROM AVIONICS SYSTEMS REPAIRER NURSE, PATIENT IN BED AWAKE, NO EVIDENCE OF DISTRESS NOTED, BED IN LOW POSITION, SIDE RAILS UP X2.
[2017-05-18 07:20] LABS: BASOPHILS % (AUTO) 0.6 % (0.0-2.0); EOSINOPHILS % (AUTO) 12.7 % (0.0-7.0); HEMATOCRIT 30.6 % (31.2-41.9); HEMOGLOBIN 10.4 g/dL (10.9-14.3); LYMPHOCYTES # (AUTO) 1.4 K/uL (20.0-40.0); LYMPHOCYTES % (AUTO) 17.2 % (20.5-51.5); MEAN CORPUSCULAR HEMOGLOBIN 29.2 uug (24.7-32.8); MEAN CORPUSCULAR HGB CONC 34 g/dL (32.3-35.6); MEAN CORPUSCULAR VOLUME 86.2 fL (75.5-95.3); MONOCYTES # (AUTO) 0.8 K/uL (2.0-10.0); MONOCYTES % (AUTO) 9.9 % (0.0-11.0); NEUTROPHILS # (AUTO) 4.8 K/uL (1.8-8.9); NEUTROPHILS % (AUTO) 59.6 % (38.5-71.5); PLATELET COUNT (AUTO) 195 K/uL (179-408); RED BLOOD CELL COUNT(AUTO) 3.55 MIL/uL (3.63-4.92)
[2017-05-18 07:23] LABS: ALANINE AMINOTRANSFERASE 23 U/L (14-59); ALKALINE PHOSPHATASE 99 U/L (50-136); ASPARTATE AMINOTRANSFERASE 29 U/L (15-37); BILIRUBIN,TOTAL 0.5 mg/dL (0.2-1.0); CARBON DIOXIDE 26 mmol/L (21-32); CHLORIDE 106 mmol/L (98-107); CREATININE 3.4 mg/dL (0.6-1.3); GLUCOSE 157 mg/dL (74-106); MAGNESIUM 2.1 mg/dL (1.8-2.4); PHOSPHOROUS 4.2 mg/dL (2.5-4.9); POTASSIUM 4.1 mmol/L (3.5-5.1); TOTAL PROTEIN, SERUM 6.8 g/dL (6.4-8.2); UREA NITROGEN, BLOOD 40 mg/dL (7-18)
[2017-05-18 07:51] LABS: BAND % (MANUAL) 1 % (0-10); EOSINOPHILS % (MANUAL) 12 % (0-8); LYMPHOCYTES % (MANUAL) 19 % (20-40); METAMYELOCYTES % 1 % (0-1); MONOCYTES % (MANUAL) 8 % (2-10); MYELOCYTES % 1 % (0-0); NEUTROPHILS % (MANUAL) 58 % (42-75)
[2017-05-18] MEDS: RIVASTIGMINE 4.6 MG PATCH TD SCH (08:45)
[2017-05-18] MEDS: FAMOTIDINE. 20 MG/2 ML VIAL IV SCH (08:45)
[2017-05-18] MEDS: CLOTRIMAZOLE 1% CREAM 30 GM TUBE TOP SCH (08:45)
[2017-05-18] MEDS: Z GUARD REMEDY PASTE 57 GM TUBE TOP SCH (08:46)
[2017-05-18] MEDS: CALCIUM CARBONATE 500 MG TABLET PO SCH (08:47)
[2017-05-18] MEDS: PROTEIN SUPPLEMENT (PROSTAT) 30 ML LIQUID PO SCH (08:47)
[2017-05-18] MEDS: BETA CAROTENE/VIT C & E/MIN TABLET PO SCH (08:47)
[2017-05-18] MEDS: DOCUSATE SODIUM 100 MG CAPSULE PO SCH (08:47)
[2017-05-18] MEDS: AMLODIPINE 2.5 MG TABLET PO SCH (08:47)
[2017-05-18] MEDS: CYANOCOBALAMIN 1,000 MCG TABLET PO SCH (08:48)
[2017-05-18] MEDS: MULTIVIT, IRON, MIN NO. 8, FA TABLET PO SCH (08:48)
[2017-05-18] MEDS: CHOLECALCIFEROL 1,000 UNIT TABLET PO SCH (08:49)
[2017-05-18] MEDS ORDERED: FAMOTIDINE 20 MG TABLET PO SCH (09:00)
[2017-05-18 11:17] VITALS: BP 148/60
--- NOTE | 2017-05-18 15:05 | NUR ---
DISCHARGE PAPERWORK COMPLETED AND REVIEWED WITH FAMILY. TOOK PICTURES OF ALL PATIENTS WOUNDS THAT SHE ARRIVED WITH. EDUCATION COMPLETED, AND PAMPHLETS PROVIDED TO FAMILY. CALLED REPORT TO ALIVIA AT [facility] THE [facility].
[2017-05-18 15:16] VITALS: BP 132/51
--- NOTE | 2017-05-18 15:54 | NUR ---
Patient picked up by detention attendant for transfer to the [facility] for the aging.
== END 2017-05-18 15:50 | DRG 177 ==
LOC: ER 14:46 → TELE 19:24 → MED 05-14 10:05 → TELE 05-14 12:00 → MED 05-14 20:25
PROVIDERS: ADMIT Internal Medicine Nephrology; ATTEND Internal Medicine Nephrology
PROC: 06HM33Z Insertion of Infusion Device into Right Femoral Vein, Percutaneous Approach (ICD-10-PCS; principal; 2017-05-06)
PROC: 30233N1 Transfusion of Nonautologous Red Blood Cells into Peripheral Vein, Percutaneous Approach (ICD-10-PCS; 2017-05-06)
PROC: 5A1D70Z Performance of Urinary Filtration, Intermittent, Less than 6 Hours Per Day (ICD-10-PCS; 2017-05-11)
DX: J69.0 Pneumonitis due to inhalation of food and vomit (principal); G92 Toxic encephalopathy; J96.90 Respiratory failure, unspecified, unspecified whether with hypoxia or hypercapnia; I21.A1 Myocardial infarction type 2; N17.0 Acute kidney failure with tubular necrosis; E44.0 Moderate protein-calorie malnutrition; B37.49 Other urogenital candidiasis; D72.829 Elevated white blood cell count, unspecified; G23.1 Progressive supranuclear ophthalmoplegia [Steele-Richardson-Olszewski]; N10 Acute pyelonephritis; I25.2 Old myocardial infarction; G20 Parkinson's disease; N13.9 Obstructive and reflux uropathy, unspecified; E78.5 Hyperlipidemia, unspecified; E03.9 Hypothyroidism, unspecified; I12.9 Hypertensive chronic kidney disease with stage 1 through stage 4 chronic kidney disease, or unspecified chronic kidney disease; N18.9 Chronic kidney disease, unspecified; Z87.01 Personal history of pneumonia (recurrent); Z90.710 Acquired absence of both cervix and uterus; Z88.2 Allergy status to sulfonamides; Z68.26 Body mass index [BMI] 26.0-26.9, adult; R91.8 Other nonspecific abnormal finding of lung field; F32.9 Major depressive disorder, single episode, unspecified; R56.9 Unspecified convulsions; F03.90 Unspecified dementia, unspecified severity, without behavioral disturbance, psychotic disturbance, mood disturbance, and anxiety; D50.0 Iron deficiency anemia secondary to blood loss (chronic)
CPT/HCPCS: 36415; 70030-TC; 70450; 71010; 71250; 76770; 83550; 83735; 83970; 84100; 84155; 84156; 84165; 84300; 85025; 85610; 85651; 86038; 86160; 86706; 86803; 86850; 86900; 86901; 86920; 87040; 87086; 87340; 93005; 94640; A4663; J0692; J0696; J0885; J3475; J3490; J3590; J7030; J7050; J7060; P9016-BL; P9021

== ENCOUNTER 2017-06-12 13:38 | Inpatient (IN) | payer MEDICARE, MEDICAID ==
[~2017-06-12] VITALS: Ht 152.4 cm; Wt 59.5 kg
--- NOTE | 2017-06-12 07:35 | NUR ---
PT ARRIVED IN [facility] ALERT AWAKE AND NON VERBAL IN NO ACUTE DISTRESS. PT NOTED WITH CONTRACTURES TO UPPER AND LOWER EXTREMITIES. BP 134/59 P 77 R 20 T 989.0 SAT 100%. AWAITING ORDERS AT THIS TIME. CONTINUE TO MONITOR. BED ALARM NOTED WITH 3 SIDE RAILS RAISED. Addendum: 06/13/17 at 0126 by NANCY OSPINA RN pt arrived 1934.
--- NOTE | 2017-06-12 08:20 | NUR ---
DR LANDON ORDERED TO CONTINUE ALL MEDICATIONS. STATED TO KEEP PT NPO AFTER MIDNIGHT AND TO START D5 1/2NS AT 75ML/HR. NOTED AND CARRIED OUT. DAUGHTER STATED PT RECEIVED ROUTINE LEVAQUIN AT [facility] D/T UTI. Addendum: 06/13/17 at 0127 by NANCY OSPINA RN charting notes done at 2019 (8:20pm)
[~2017-06-12 13:38] MED LIST changes: +AMLO2.5T PO; +CLOT30CR24 TOP; +FAMO-108 PO; +FLUC100T PO; +HYDR25TA86 PO; -MAG355OR32 PO; +MENT71OI TOP; -METH4TAB21 PO; -PANT20TA2 PO; -PIPE3.379 IV; -ROPI1TAB2 PO; -RXVAN XX; +SIME40DR2 PO; -VANC1PLA10 IV
[2017-06-12] MEDS ORDERED: IV NORMAL SALINE 500 ML BAG IV ONE (13:45)
[2017-06-12] MEDS ORDERED: BISA5TAB13 PR (14:01)
[2017-06-12] MEDS ORDERED: [UNRECOGNIZED DRUG - OTHER] PO (14:01)
--- NOTE | 2017-06-12 14:09 | NUR ---
PT IS IN ROOM #1B. DR BRYANT EVALUATED THE PT.
[2017-06-12 14:30] LABS: BASOPHILS % (AUTO) 0.5 % (0.0-2.0); EOSINOPHILS # (AUTO) 0.3 K/uL (0.0-0.7); EOSINOPHILS % (AUTO) 4.2 % (0.0-7.0); HEMATOCRIT 34.5 % (31.2-41.9); HEMOGLOBIN 11.4 g/dL (10.9-14.3); LYMPHOCYTES # (AUTO) 1.6 K/uL (20.0-40.0); LYMPHOCYTES % (AUTO) 22.6 % (20.5-51.5); MEAN CORPUSCULAR HEMOGLOBIN 28.3 uug (24.7-32.8); MEAN CORPUSCULAR HGB CONC 33 g/dL (32.3-35.6); MEAN CORPUSCULAR VOLUME 85.4 fL (75.5-95.3); MONOCYTES # (AUTO) 0.7 K/uL (2.0-10.0); MONOCYTES % (AUTO) 9.9 % (0.0-11.0); NEUTROPHILS # (AUTO) 4.4 K/uL (1.8-8.9); NEUTROPHILS % (AUTO) 62.8 % (38.5-71.5); PLATELET COUNT (AUTO) 219 K/uL (179-408); RED BLOOD CELL COUNT(AUTO) 4.03 MIL/uL (3.63-4.92)
[2017-06-12 14:36] LABS: CARBON DIOXIDE 30 mmol/L (21-32); CHLORIDE 104 mmol/L (98-107); GLUCOSE 97 mg/dL (74-106); POTASSIUM 4.1 mmol/L (3.5-5.1); UREA NITROGEN, BLOOD 9 mg/dL (7-18)
[2017-06-12 14:42] LABS: ALANINE AMINOTRANSFERASE 25 U/L (14-59); ALKALINE PHOSPHATASE 91 U/L (50-136); ASPARTATE AMINOTRANSFERASE 21 U/L (15-37); BILIRUBIN,DIRECT 0.1 mg/dL (0.0-0.2); BILIRUBIN,TOTAL 0.3 mg/dL (0.2-1.0)
[2017-06-12 14:43] LABS: *BILIRUBIN,URIN NEGATIVE (NEGATIVE); *BLOOD, URINE Trace-intact (NEGATIVE); *COLOR,URINE YELLOW (YELLOW); *KETONES,URINE TRACE (NEGATIVE); *PROTEIN,URINE NEGATIVE (NEGATIVE); *UROBILINOGEN,URINE 0.2 E.U./dl (NORMAL); LEUKOCYTE ESTERASE ,URINE NEGATIVE (NEGATIVE); NITRITE, URINE NEGATIVE (NEGATIVE); UGLUCOSE NEGATIVE (NEGATIVE)
[2017-06-12 14:50] LABS: *CLARITY,URINE SLIGHTLY HAZY (CLEAR)
[2017-06-12 14:51] LABS: SQUAMOUS EPITHELIAL CELL,UR MODERATE /HPF (NONE SEEN); STARCH,URINE MODERATE /LPF (NONE SEEN)
--- NOTE | 2017-06-12 17:49 | NUR ---
REPORT GIVEN TO DIOR Baig/James OLIVEIRA.
--- NOTE | 2017-06-12 19:24 | NUR ---
Assumed care of patient. No acute distress noted.
--- NOTE | 2017-06-12 19:45 | NUR ---
Pt. admitted to telemetry , under care of Dr. Holman Belongs List completed
[2017-06-12 20:00] VITALS: BP 134/59
[2017-06-12] MEDS: LEVOFLOXACIN 250MG /D5W 250 MG in PREMIXED 1 EACH IV SCH (21:15)
[2017-06-12] MEDS ORDERED: IV D5 1/2 NS 1000 ML 1,000 ML IV ONE (23:45)
[2017-06-13] MEDS ORDERED: LEVOFLOXACIN 250MG /D5W 50 ML IV ONE (00:14)
--- NOTE | 2017-06-13 02:00 | NUR ---
PT IN ROOM ASLEEP WITH NO REACTION TO PREVIOUS DOSE OF LEVAQUIN. NO NEW ORDERS AT THIS TIME. CONTINUE IV HYDRATION D5 1/2 NS AT 75ML/HR. CONTINUE TO MONITOR.
[2017-06-13 04:44] VITALS: BP 99/45
[2017-06-13 11:54] VITALS: BP 115/60
[2017-06-13] MEDS ORDERED: TRAMADOL HCL 50 MG TABLET PO PRN (12:00)
[2017-06-13] MEDS ORDERED: ACETAMINOPHEN ES 500 MG TABLET PO PRN (12:00)
[2017-06-13] MEDS ORDERED: MISCELLANEOUS MED XX PRN (12:00)
[2017-06-13] MEDS ORDERED: BISACODYL 5 MG TABLET.DR PO PRN (12:00)
[2017-06-13] MEDS ORDERED: SIMETHICONE 40 MG/0.6 ML 30 ML BOTTLE PO PRN (12:00)
[2017-06-13] MEDS ORDERED: SIMETHICONE 80 MG TAB.CHEW PO PRN (12:15)
[2017-06-13] MEDS: RIVASTIGMINE 4.6 MG PATCH TD SCH (15:56)
[2017-06-13] MEDS: MULTIVIT, IRON, MIN NO. 8, FA TABLET PO SCH (15:56)
[2017-06-13] MEDS: LACTOBACILLUS RHAMNOSUS GG 1 EACH CAPSULE PO SCH (15:56)
[2017-06-13 16:00] VITALS: BP 116/59
--- NOTE | 2017-06-13 16:00 | NUR ---
patient tolerated gtube medication. Attempted iv. start x 2, patient remains pain free at this point and time. family requested pain medication. call light with in reach. family at bed side. hob elevated for aspiration precautioon. continue to monitor.
[2017-06-13] MEDS: PROTEIN SUPPLEMENT (PROSTAT) 30 ML LIQUID PO SCH (18:40)
[2017-06-13] MEDS: DOCUSATE SODIUM 100 MG CAPSULE PO SCH (18:41)
--- NOTE | 2017-06-13 18:44 | NUR ---
no episodes of aspiration. pain free. new i.v. started on right hand and left upper arm. patient appears more calm at this point and time. Call light with in reach. continue to monitor.
[2017-06-13] MEDS ORDERED: PROPOFOL 200 MG/20 ML BOTTLE IV ONE (18:59)
[2017-06-13] MEDS ORDERED: LIDOCAINE HCL 2% 20 ML VIAL MC ONE (18:59)
[2017-06-13] MEDS ORDERED: IV D5W-0.45% NS 1000 ML BAG IV ONE (18:59)
[2017-06-13] MEDS ORDERED: CEFAZOLIN 1 G VIAL MC ONE (18:59)
[2017-06-13 20:00] VITALS: BP 145/56
[2017-06-13] MEDS ORDERED: ESCITALOPRAM OXALATE 10 MG TABLET PO SCH (21:00)
[2017-06-13] MEDS ORDERED: MIRTAZAPINE 15 MG TABLET PO SCH (21:00)
[2017-06-13] MEDS ORDERED: LACTOBACILLUS RHAMNOSUS GG 1 EACH CAPSULE PO SCH (21:00)
[2017-06-13] MEDS ORDERED: ATORVASTATIN 10 MG TABLET PO SCH (21:00)
[2017-06-13] MEDS: LEVOFLOXACIN 250MG /D5W 250 MG in PREMIXED 1 EACH IV SCH (21:02)
--- NOTE | 2017-06-14 05:12 | NUR ---
lying in bed daughter at bed side iv infusing to left upper arm without difficulty diaper clean and dry new gt wrapped with abd binder bilat heel proctors on left heel dressing c/d/i remains npo except for medication through gt.
[2017-06-14 06:00] VITALS: BP 109/53
--- NOTE | 2017-06-14 07:40 | NUR ---
on bed, sleeping comfortably. no distress noted. abdomen j tube and abdominal binder in place.
--- NOTE | 2017-06-14 08:26 | NUR ---
daughter in supportive of patient care. appreciative of care
[2017-06-14] MEDS ORDERED: LISINOPRIL 5 MG TABLET PO SCH (09:00)
[2017-06-14] MEDS ORDERED: ALENDRONATE SODIUM 70 MG TABLET PO SCH (09:00)
[2017-06-14] MEDS ORDERED: CALCIUM CARBONATE 500 MG TABLET PO SCH (09:00)
[2017-06-14] MEDS ORDERED: CYANOCOBALAMIN 1,000 MCG TABLET PO SCH (09:00)
[2017-06-14] MEDS: MULTIVIT, IRON, MIN NO. 8, FA TABLET PO SCH (09:02)
[2017-06-14] MEDS: DOCUSATE SODIUM 100 MG CAPSULE PO SCH ×2 (09:02→17:43)
[2017-06-14] MEDS: LACTOBACILLUS RHAMNOSUS GG 1 EACH CAPSULE PO SCH (09:03)
[2017-06-14] MEDS: RIVASTIGMINE 4.6 MG PATCH TD SCH (09:08)
--- NOTE | 2017-06-14 09:12 | NUR ---
daughter and son at bedside, concern patient status, supportive of care.
[2017-06-14] MEDS ORDERED: FIBERSOURCE HN 1000ML LIQUID GT PRN (09:45)
[2017-06-14] MEDS: PROTEIN SUPPLEMENT (PROSTAT) 30 ML LIQUID PO SCH ×2 (09:50→17:43)
[2017-06-14 11:40] VITALS: BP 135/45
--- NOTE | 2017-06-14 12:30 | NUR ---
TUBE FEEDING STARTED, TOLERATED FAIR ABDOMEN INCISION STERISTRIPS IN PLACE.
[2017-06-14 15:28] VITALS: BP 116/48
--- NOTE | 2017-06-14 18:30 | NUR ---
TUBE FEEDING STOPPED FOR DISCHARGE, HYLTON DC ORDERED
--- NOTE | 2017-06-14 20:08 | NUR ---
PATIENT DISCHARGED, TRANSPORTED VIA [facility] TO [facility]. VITAL SIGNS STABLE, FAMILY AT BEDSIDE WHO WILL FOLLOW PATIENT TO [facility]. DISCHARGE PACKET WITH PATIENT, PATIENT HAD NO BELONGINGS. g-TUBE INTACT WITH ABDOMINAL BINDER IN PLACE.
== END 2017-06-14 19:00 | DRG 640 ==
LOC: ER 13:40 → MED 15:54
PROVIDERS: ADMIT Internal Medicine; ATTEND Internal Medicine
PROC: 0DB68ZX Excision of Stomach, Via Natural or Artificial Opening Endoscopic, Diagnostic (ICD-10-PCS; 2017-06-13)
PROC: 0DH63UZ Insertion of Feeding Device into Stomach, Percutaneous Approach (ICD-10-PCS; principal; 2017-06-13 07:58)
DX: E86.0 Dehydration (principal); G93.41 Metabolic encephalopathy; E44.0 Moderate protein-calorie malnutrition; G23.1 Progressive supranuclear ophthalmoplegia [Steele-Richardson-Olszewski]; R13.10 Dysphagia, unspecified; R62.7 Adult failure to thrive; F44.89 Other dissociative and conversion disorders; Z68.25 Body mass index [BMI] 25.0-25.9, adult; K44.9 Diaphragmatic hernia without obstruction or gangrene; E78.5 Hyperlipidemia, unspecified; N32.81 Overactive bladder; Z88.2 Allergy status to sulfonamides; Z87.01 Personal history of pneumonia (recurrent); Z87.440 Personal history of urinary (tract) infections; F03.90 Unspecified dementia, unspecified severity, without behavioral disturbance, psychotic disturbance, mood disturbance, and anxiety
CPT/HCPCS: 36415; 70030-TC; 71045; 83605; 85025; 85730; 87040; 87086; 87400; 93005; A4217; A4663; J0690; J1956; J3490; J7030

== ENCOUNTER 2017-11-24 14:44 | Emergency (ER) | payer MEDICARE, MEDICAID ==
[~2017-11-24] VITALS: Ht 152.4 cm; Wt 59.0 kg
[~2017-11-24 14:44] MED LIST changes: +BISA5TAB13 PR; -CHOL3000 PO; -CLOT30CR24 TOP; -FAMO-108 PO; -FLUC100T PO; -IPRA0.2S6 NEB; -IPRA3AMP IH; -MENT71OI TOP; -VIT1CAPS9 PO; +[UNRECOGNIZED DRUG - CODE] PO
--- NOTE | 2017-11-24 15:15 | NUR ---
1st contact with patient, comic book writer assumes care. Patient's g-tube was inserted by our ER doctor, pending x-ray for verification
[2017-11-24] MEDS ORDERED: DIATR MEGLU/DIATRIZOATE SODIUM 30 ML SOLUTION ONE (15:19)
--- NOTE | 2017-11-24 16:19 | NUR ---
Patient's daughter is at bedside, pending [facility] ambulance fiber picker at this time.
--- NOTE | 2017-11-24 17:30 | NUR ---
Patient is resting comfortably in bed with eyes closed. Position changes done. Private caregiver is at bedside.
--- NOTE | 2017-11-24 18:31 | NUR ---
Patient discharged to [facility] in stable conditon. Written and verbal after care instructions given to patient daughter and [facility] nurse Cristal. Patient's daughterand [facility] nurse verbalized understanding of instructions. S ambulance EMT [place] ,unit#[id number]
--- NOTE | 2017-11-24 18:34 | NUR ---
Hands off report given to EMT staff of [facility].
== END 2017-11-24 18:39 | disposition home or self-care (01) ==
LOC: ER 14:44
DX: T85.598A Other mechanical complication of other gastrointestinal prosthetic devices, implants and grafts, initial encounter (principal); I10 Essential (primary) hypertension; E03.9 Hypothyroidism, unspecified; Z88.2 Allergy status to sulfonamides; Z79.2 Long term (current) use of antibiotics; Z79.899 Other long term (current) drug therapy
CPT/HCPCS: 43760; 71045; 74018; 99284; A4663; Q9963

== ENCOUNTER 2018-01-24 09:13 | Emergency (ER) | payer MEDICARE, MEDICAID ==
[~2018-01-24] VITALS: Ht 152.4 cm; Wt 59.0 kg
[2018-01-24] MEDS ORDERED: DIATR MEGLU/DIATRIZOATE SODIUM 120 ML BOTTLE GT ONE (09:45)
[2018-01-24] MEDS ORDERED: DIATR MEGLU/DIATRIZOATE SODIUM 30 ML SOLUTION ONE (10:04)
--- NOTE | 2018-01-24 10:28 | NUR ---
PT IS IN ROOM #2A. DR SARKAR EVALUATED THE PT.
[2018-01-24 11:36] LABS: BASOPHILS % (AUTO) 0.3 % (0.0-2.0); EOSINOPHILS # (AUTO) 0.1 K/uL (0.0-0.7); EOSINOPHILS % (AUTO) 1.1 % (0.0-7.0); HEMATOCRIT 37.3 % (31.2-41.9); HEMOGLOBIN 12.3 g/dL (10.9-14.3); LYMPHOCYTES # (AUTO) 1.5 K/uL (20.0-40.0); LYMPHOCYTES % (AUTO) 14.3 % (20.5-51.5); MEAN CORPUSCULAR HEMOGLOBIN 28.8 uug (24.7-32.8); MEAN CORPUSCULAR HGB CONC 33 g/dL (32.3-35.6); MEAN CORPUSCULAR VOLUME 87.4 fL (75.5-95.3); MONOCYTES # (AUTO) 0.8 K/uL (2.0-10.0); MONOCYTES % (AUTO) 8.1 % (0.0-11.0); NEUTROPHILS # (AUTO) 7.8 K/uL (1.8-8.9); NEUTROPHILS % (AUTO) 76.2 % (38.5-71.5); PLATELET COUNT (AUTO) 246 K/uL (179-408); RED BLOOD CELL COUNT(AUTO) 4.27 MIL/uL (3.63-4.92); WHITE BLOOD COUNT (AUTO) 10.3 K/uL (3.8-11.8)
[2018-01-24 11:44] LABS: CARBON DIOXIDE 27 mmol/L (21-32); CHLORIDE 102 mmol/L (98-107); CREATININE 0.7 mg/dL (0.6-1.3); GLUCOSE 146 mg/dL (74-106); POTASSIUM 4.1 mmol/L (3.5-5.1); UREA NITROGEN, BLOOD 24 mg/dL (7-18)
[2018-01-24 11:58] LABS: ALANINE AMINOTRANSFERASE 32 U/L (14-59); ALKALINE PHOSPHATASE 92 U/L (50-136); ASPARTATE AMINOTRANSFERASE 22 U/L (15-37); BILIRUBIN,DIRECT 0.1 mg/dL (0.0-0.2); BILIRUBIN,TOTAL 0.5 mg/dL (0.2-1.0); TOTAL PROTEIN, SERUM 7.4 g/dL (6.4-8.2)
[2018-01-24] MEDS ORDERED: IPRA3AMP23 IH (12:53)
[2018-01-24] MEDS ORDERED: NPH INSULIN SQ (12:53)
[2018-01-24] MEDS ORDERED: CAPSAICIN TOP (12:53)
[2018-01-24] MEDS ORDERED: LACT10SO GT (12:53)
[2018-01-24] MEDS ORDERED: NOVOLOG INSULIN SQ (12:53)
[2018-01-24] MEDS ORDERED: ASCO500T10 GT (12:53)
--- NOTE | 2018-01-24 12:58 | NUR ---
Medication Reconciliation note: Unable to edit medications from po to GT.
--- NOTE | 2018-01-24 13:00 | NUR ---
Call placed to [facility] Nephrology, on-call Dr. Carr has been paged.
--- NOTE | 2018-01-24 13:27 | NUR ---
[facility] WAS CALLED ACCORDING TO DR SARKAR ORDER TO TRANSFER PT BACK TO [facility] . KATHLEEN IS 45 MINUTES, TRIP # [id number].
[2018-01-24] MEDS ORDERED: LEVOFLOXACIN 500 MG TABLET PO ONE (13:30)
[2018-01-24] MEDS ORDERED: LEVOFLOXACIN 500 MG TABLET ONE (13:44)
--- NOTE | 2018-01-24 14:20 | NUR ---
Patient discharged to home via ambulance ([facility]) in stable conditon. Written and verbal after care instructions given to registered nurse nursery for handoff to facility. Patient's son verbalizes understanding of instructions.
== END 2018-01-24 14:34 | disposition home or self-care (01) ==
LOC: ER 09:13
DX: Z43.1 Encounter for attention to gastrostomy (principal); I10 Essential (primary) hypertension; E78.5 Hyperlipidemia, unspecified; K21.9 Gastro-esophageal reflux disease without esophagitis; E03.9 Hypothyroidism, unspecified; Z88.2 Allergy status to sulfonamides
CPT/HCPCS: 36415; 43760; 71045; 74018; 80048; 80076; 83605; 83880; 84484; 85025; 85730; 87040 ×2; 93005; 99285; A4663; Q9963; 70030-TC

== ENCOUNTER 2018-03-18 09:28 | Emergency (ER) | payer MEDICARE, MEDICAID ==
[~2018-03-18] VITALS: Ht 157.5 cm; Wt 59.0 kg
[~2018-03-18 09:28] MED LIST changes: -ALBU2.5V13 NEB; -AMIN30LI27 PO; -AMLO2.5T PO; +AMLO2.5T3 PO; +ASCO500T10 GT; +CAPSAICIN TOP; +IPRA3AMP23 IH; +LACT10SO GT; -MIRT15TA PO; +NOVOLOG INSULIN SQ; +NPH INSULIN SQ; -TRAM50TA2 PO
--- NOTE | 2018-03-18 09:38 | NUR ---
adalberto pierre removed the folley gauge 16 from the g-tube stoma and placed standard balloon straight bolster 18F without difficulty. pt tolerated well.
[2018-03-18] MEDS ORDERED: DIATR MEGLU/DIATRIZOATE SODIUM 30 ML SOLUTION ONE (09:39)
--- NOTE | 2018-03-18 10:01 | NUR ---
Patient discharged to home in stable conditon. Written care instructions given to ambulance personel. called [facility] and let them know that the pt is coming back. Addendum: 03/18/18 at 1003 by DOMINIC pt was send back to [facility] with the same ambulance crew that brought the pt in.
[2018-03-18 10:02] VITALS: BP 121/57
== END 2018-03-18 10:05 | disposition home or self-care (01) ==
LOC: ER 09:28
DX: K94.23 Gastrostomy malfunction (principal); I10 Essential (primary) hypertension; E78.5 Hyperlipidemia, unspecified; E03.9 Hypothyroidism, unspecified; Z88.2 Allergy status to sulfonamides
CPT/HCPCS: 43760; 74018; 99284; A4663 ×2; Q9963

== ENCOUNTER 2018-03-21 11:23 | Emergency (ER) | payer MEDICARE, MEDICAID ==
[~2018-03-21] VITALS: Ht 157.5 cm; Wt 59.0 kg
--- NOTE | 2018-03-21 11:39 | NUR ---
PT IS IN ROOM #1B, DR MANN EVALUATED THE PT.
[2018-03-21] MEDS ORDERED: DIATR MEGLU/DIATRIZOATE SODIUM 120 ML BOTTLE ONE (12:00)
[2018-03-21] MEDS ORDERED: DIATR MEGLU/DIATRIZOATE SODIUM 120 ML BOTTLE PO ONE (12:00)
--- NOTE | 2018-03-21 14:03 | NUR ---
PT WAS D/C TO [facility]. REPORT AND D/C INSTRUCTIONS WERE GIVEN TO AMBULANCE RN AND TO PT's SON.
[2018-03-21 14:06] VITALS: BP 101/56
== END 2018-03-21 14:11 | disposition home or self-care (01) ==
LOC: ER 11:23
DX: K94.23 Gastrostomy malfunction (principal); I10 Essential (primary) hypertension; E78.5 Hyperlipidemia, unspecified; E03.9 Hypothyroidism, unspecified; Z88.2 Allergy status to sulfonamides
CPT/HCPCS: 43760; 74018 ×2; 99284; A4663; Q9963

== ENCOUNTER 2018-03-27 12:10 | Inpatient (IN) | payer MEDICARE, MEDICAID ==
[~2018-03-27] VITALS: Ht 154.9 cm; Wt 58.3 kg
[2018-03-27] MEDS ORDERED: IV NS 1000 ML 1,000 ML IV ONE ×2 (12:30→13:30)
[2018-03-27] MEDS ORDERED: FURO-152 PO (12:54)
[2018-03-27 13:04] LABS: BASOPHILS % (AUTO) 0.3 % (0.0-2.0); EOSINOPHILS # (AUTO) 0.2 K/uL (0.0-0.7); EOSINOPHILS % (AUTO) 1.9 % (0.0-7.0); HEMOGLOBIN 11.2 g/dL (10.9-14.3); LYMPHOCYTES # (AUTO) 1.8 K/uL (20.0-40.0); LYMPHOCYTES % (AUTO) 15.6 % (20.5-51.5); MEAN CORPUSCULAR HEMOGLOBIN 29.2 uug (24.7-32.8); MEAN CORPUSCULAR HGB CONC 33 g/dL (32.3-35.6); MEAN CORPUSCULAR VOLUME 88.4 fL (75.5-95.3); MONOCYTES # (AUTO) 0.9 K/uL (2.0-10.0); MONOCYTES % (AUTO) 7.4 % (0.0-11.0); NEUTROPHILS # (AUTO) 8.7 K/uL (1.8-8.9); NEUTROPHILS % (AUTO) 74.8 % (38.5-71.5); PLATELET COUNT (AUTO) 233 K/uL (179-408); RED BLOOD CELL COUNT(AUTO) 3.85 MIL/uL (3.63-4.92); WHITE BLOOD COUNT (AUTO) 11.6 K/uL (3.8-11.8)
[2018-03-27 13:20] LABS: ALANINE AMINOTRANSFERASE 24 U/L (14-59); ALKALINE PHOSPHATASE 83 U/L (50-136); ASPARTATE AMINOTRANSFERASE 18 U/L (15-37); BILIRUBIN,DIRECT 0.3 mg/dL (0.0-0.2); BILIRUBIN,TOTAL 1.2 mg/dL (0.2-1.0); CARBON DIOXIDE 37 mmol/L (21-32); CHLORIDE 100 mmol/L (98-107); CREATININE 1.4 mg/dL (0.6-1.3); GLUCOSE 208 mg/dL (74-106); POTASSIUM 4.1 mmol/L (3.5-5.1); TOTAL PROTEIN, SERUM 7.6 g/dL (6.4-8.2)
[2018-03-27 13:30] LABS: UREA NITROGEN, BLOOD 104 mg/dL (7-18)
[2018-03-27 15:30] VITALS: BP 114/41
[2018-03-27] MEDS: IV NS 1000 ML 1,000 ML IV PRN (17:32)
[2018-03-27 19:00] VITALS: BP 94/35
[2018-03-27] MEDS ORDERED: ZOLPIDEM 5 MG TABLET PO PRN (23:00)
[2018-03-27] MEDS ORDERED: hydrALAZINE HCL 25 MG TABLET PO PRN (23:00)
[2018-03-27] MEDS ORDERED: MAGNESIUM HYDROXIDE 30 ML LIQUID UDC PO PRN (23:00)
[2018-03-27] MEDS ORDERED: HYDROCODONE/APAP 5-325MG TABLET PO PRN (23:00)
[2018-03-27] MEDS ORDERED: ACETAMINOPHEN ES 500 MG TABLET PO PRN (23:00)
[2018-03-27] MEDS ORDERED: ALBUTEROL SULFATE 2.5 MG/3 ML NEBU NEB PRN (23:00)
[2018-03-27] MEDS ORDERED: ONDANSETRON 4 MG/2 ML VIAL IV PRN (23:00)
[2018-03-27] MEDS ORDERED: Z GUARD REMEDY PASTE 57 GM TUBE TOP PRN (23:00)
[2018-03-27] MEDS ORDERED: SIMETHICONE 40 MG/0.6 ML 30 ML BOTTLE PO PRN (23:00)
[2018-03-27] MEDS ORDERED: IPRATROPIUM BROMIDE 0.5 MG/2.5 ML NEBU NEB PRN (23:00)
[2018-03-27] MEDS ORDERED: ACETAMINOPHEN 325 MG TABLET PO PRN (23:00)
[2018-03-28] MEDS: IV NS 1000 ML 1,000 ML IV PRN (02:44)
[2018-03-28 04:00] VITALS: BP 137/58
[2018-03-28] MEDS ORDERED: ALENDRONATE SODIUM 70 MG TABLET PO SCH (06:30)
[2018-03-28] MEDS: FAMOTIDINE 20 MG TABLET PO SCH ×2 (06:39→16:30)
[2018-03-28 06:48] LABS: BASOPHILS % (AUTO) 0.2 % (0.0-2.0); EOSINOPHILS # (AUTO) 0.2 K/uL (0.0-0.7); EOSINOPHILS % (AUTO) 2.1 % (0.0-7.0); HEMATOCRIT 30.4 % (31.2-41.9); HEMOGLOBIN 10.2 g/dL (10.9-14.3); LYMPHOCYTES # (AUTO) 1.5 K/uL (20.0-40.0); LYMPHOCYTES % (AUTO) 15.7 % (20.5-51.5); MEAN CORPUSCULAR HEMOGLOBIN 29.4 uug (24.7-32.8); MEAN CORPUSCULAR HGB CONC 34 g/dL (32.3-35.6); MEAN CORPUSCULAR VOLUME 87.8 fL (75.5-95.3); MONOCYTES # (AUTO) 0.7 K/uL (2.0-10.0); MONOCYTES % (AUTO) 7.8 % (0.0-11.0); NEUTROPHILS % (AUTO) 74.2 % (38.5-71.5); PLATELET COUNT (AUTO) 201 K/uL (179-408); RED BLOOD CELL COUNT(AUTO) 3.46 MIL/uL (3.63-4.92); WHITE BLOOD COUNT (AUTO) 9.5 K/uL (3.8-11.8)
[2018-03-28 06:58] LABS: CARBON DIOXIDE 29 mmol/L (21-32); CHLORIDE 108 mmol/L (98-107); CHOLESTEROL 213 mg/dL (<200); CREATININE 1.1 mg/dL (0.6-1.3); GLUCOSE 203 mg/dL (74-106); HDL CHOLESTEROL 64 mg/dL (40-60); MAGNESIUM 2.7 mg/dL (1.8-2.4); PHOSPHOROUS 2.8 mg/dL (2.5-4.9); POTASSIUM 4.3 mmol/L (3.5-5.1); TRIGLYCERIDES 90 MG/DL (30-150); UREA NITROGEN, BLOOD 66 mg/dL (7-18)
[2018-03-28] MEDS ORDERED: LACTULOSE 20 G/30 ML LIQUID UDC GT PRN (07:00)
[2018-03-28] MEDS ORDERED: SIMETHICONE 40 MG/0.6 ML 30 ML BOTTLE PO PRN (08:00)
[2018-03-28] MEDS ORDERED: CYANOCOBALAMIN 1,000 MCG TABLET PO SCH (09:00)
[2018-03-28] MEDS ORDERED: LISINOPRIL 5 MG TABLET PO SCH (09:00)
[2018-03-28] MEDS ORDERED: AMLODIPINE 2.5 MG TABLET PO SCH (09:00)
[2018-03-28] MEDS: DOCUSATE SODIUM 100 MG CAPSULE PO SCH ×2 (09:00→17:00)
[2018-03-28] MEDS ORDERED: FUROSEMIDE 20 MG TABLET PO SCH (09:00)
[2018-03-28] MEDS: ASCORBIC ACID 500 MG TABLET GT SCH (09:00)
[2018-03-28] MEDS ORDERED: CALCIUM CARBONATE 500 MG TABLET PO SCH (09:00)
[2018-03-28] MEDS ORDERED: MULTIVIT, IRON, MIN NO. 8, FA TABLET PO SCH (09:00)
[2018-03-28] MEDS ORDERED: LACTOBACILLUS RHAMNOSUS GG 1 EACH CAPSULE PO SCH (09:00)
[2018-03-28] MEDS: RIVASTIGMINE 4.6 MG PATCH TD SCH (09:01)
[2018-03-28] MEDS ORDERED: ASPIRIN 300 MG RECTAL SUPP RC ONE (10:30)
[2018-03-28 11:46] VITALS: BP 124/47
[2018-03-28] MEDS: IV D5 1/2 NS 1000 ML 1,000 ML IV SCH (11:50)
[2018-03-28] MEDS ORDERED: DEXTROSE 50% 50 ML DISP.SYRIN IV PRN (12:15)
[2018-03-28] MEDS: BLOOD SUGAR DIAGNOSTIC 1 EACH STRIP VI SCH ×3 (12:17→21:44)
[2018-03-28] MEDS: INSULIN REGULAR, HUMAN 300 UNIT/3 ML VIAL SQ PRN ×3 (12:18→21:46)
[2018-03-28] MEDS ORDERED: SIME40DR2 PO (12:45)
[2018-03-28 15:10] VITALS: BP 141/45
[2018-03-28] MEDS ORDERED: DIATR MEGLU/DIATRIZOATE SODIUM 120 ML BOTTLE ONE (18:15)
[2018-03-28 20:00] VITALS: BP 125/60
[2018-03-28] MEDS ORDERED: SIMVASTATIN 10 MG TABLET PO SCH (21:00)
[2018-03-28] MEDS ORDERED: ESCITALOPRAM OXALATE 10 MG TABLET PO SCH (21:00)
[2018-03-28] MEDS ORDERED: SIMETHICONE 40 MG/0.6 ML 30 ML BOTTLE PEG PRN (22:00)
[2018-03-28] MEDS ORDERED: ZOLPIDEM 5 MG TABLET PEG PRN (22:00)
[2018-03-28] MEDS ORDERED: hydrALAZINE HCL 25 MG TABLET PEG PRN (22:00)
[2018-03-28] MEDS ORDERED: MAGNESIUM HYDROXIDE 30 ML LIQUID UDC PEG PRN (22:00)
[2018-03-28] MEDS ORDERED: HYDROCODONE/APAP 5-325MG TABLET PEG PRN (23:00)
[2018-03-28] MEDS ORDERED: ACETAMINOPHEN 325 MG TABLET PEG PRN (23:00)
[2018-03-28 23:50] LABS: *BILIRUBIN,URIN NEGATIVE (NEGATIVE); *BLOOD, URINE NEGATIVE (NEGATIVE); *CLARITY,URINE CLOUDY (CLEAR); *COLOR,URINE YELLOW (YELLOW); *KETONES,URINE NEGATIVE (NEGATIVE); *PROTEIN,URINE 1+ (NEGATIVE); LEUKOCYTE ESTERASE ,URINE 2+ (NEGATIVE); NITRITE, URINE NEGATIVE (NEGATIVE); PH,URINE >=9.0 (5.0-8.0); UGLUCOSE NEGATIVE (NEGATIVE)
[2018-03-29] VITALS: BP 136/67
[2018-03-29] LABS: *CREATININE,URINE 35.2 mg/dL (30-125); *URINE TOTAL PROTEIN RANDOM 56.5 mg/dL (<150/24HR)
[2018-03-29 00:10] LABS: BACTERIA,URINE FEW /HPF (NONE SEEN); RBC,URINE 0-3 /HPF (0-3); SQUAMOUS EPITHELIAL CELL,UR FEW /HPF (NONE SEEN); WBC,URINE 0-3 /HPF (0-3)
[2018-03-29 00:11] LABS: URINE AMORPHOUS URATE MANY /HPF
[2018-03-29] MEDS ORDERED: ESCITALOPRAM OXALATE 10 MG TABLET PEG ONE (02:16)
[2018-03-29 04:00] VITALS: BP 138/57
[2018-03-29] MEDS: IV D5 1/2 NS 1000 ML 1,000 ML IV SCH (05:13)
[2018-03-29] MEDS ORDERED: ALENDRONATE SODIUM 70 MG TABLET PO SCH (06:00)
[2018-03-29 06:20] LABS: BASOPHILS % (AUTO) 0.3 % (0.0-2.0); EOSINOPHILS # (AUTO) 0.1 K/uL (0.0-0.7); EOSINOPHILS % (AUTO) 0.9 % (0.0-7.0); HEMOGLOBIN 10.5 g/dL (10.9-14.3); LYMPHOCYTES # (AUTO) 1.7 K/uL (20.0-40.0); LYMPHOCYTES % (AUTO) 18.2 % (20.5-51.5); MEAN CORPUSCULAR HEMOGLOBIN 29.7 uug (24.7-32.8); MEAN CORPUSCULAR HGB CONC 33 g/dL (32.3-35.6); MEAN CORPUSCULAR VOLUME 90.6 fL (75.5-95.3); MONOCYTES # (AUTO) 0.9 K/uL (2.0-10.0); MONOCYTES % (AUTO) 9.3 % (0.0-11.0); NEUTROPHILS # (AUTO) 6.5 K/uL (1.8-8.9); NEUTROPHILS % (AUTO) 71.3 % (38.5-71.5); PLATELET COUNT (AUTO) 203 K/uL (179-408); RED BLOOD CELL COUNT(AUTO) 3.53 MIL/uL (3.63-4.92); WHITE BLOOD COUNT (AUTO) 9.2 K/uL (3.8-11.8)
[2018-03-29] MEDS: BLOOD SUGAR DIAGNOSTIC 1 EACH STRIP VI SCH ×4 (06:32→22:03)
[2018-03-29] MEDS: FAMOTIDINE 20 MG TABLET PEG SCH ×2 (06:32→16:45)
[2018-03-29 07:09] LABS: ALANINE AMINOTRANSFERASE 21 U/L (14-59); ALKALINE PHOSPHATASE 70 U/L (50-136); ASPARTATE AMINOTRANSFERASE 18 U/L (15-37); BILIRUBIN,TOTAL 0.6 mg/dL (0.2-1.0); CARBON DIOXIDE 27 mmol/L (21-32); CHLORIDE 115 mmol/L (98-107); GLUCOSE 201 mg/dL (74-106); MAGNESIUM 2.5 mg/dL (1.8-2.4); POTASSIUM 4.4 mmol/L (3.5-5.1); TOTAL PROTEIN, SERUM 7.2 g/dL (6.4-8.2)
[2018-03-29 07:24] LABS: UREA NITROGEN, BLOOD 35 mg/dL (7-18)
[2018-03-29] MEDS: RIVASTIGMINE 4.6 MG PATCH TD SCH (08:00)
[2018-03-29] MEDS: INSULIN REGULAR, HUMAN 300 UNIT/3 ML VIAL SQ PRN ×3 (08:01→22:05)
[2018-03-29] MEDS ORDERED: SIMETHICONE 80 MG TAB.CHEW PO PRN (08:45)
[2018-03-29] MEDS: MULTIVIT, IRON, MIN NO. 8, FA TABLET PEG SCH ×2 (09:00→16:45)
[2018-03-29] MEDS: FUROSEMIDE 20 MG TABLET PEG SCH ×2 (09:00→16:30)
[2018-03-29] MEDS: AMLODIPINE 2.5 MG TABLET PEG SCH ×3 (09:00→21:26)
[2018-03-29] MEDS: DOCUSATE SODIUM 100 MG CAPSULE PO SCH ×2 (09:00→16:45)
[2018-03-29] MEDS: ASCORBIC ACID 500 MG TABLET GT SCH ×2 (09:00→16:30)
[2018-03-29] MEDS: LACTOBACILLUS RHAMNOSUS GG 1 EACH CAPSULE PEG SCH ×3 (09:00→21:25)
[2018-03-29] MEDS: CALCIUM CARBONATE 500 MG TABLET PEG SCH ×2 (09:00→16:30)
[2018-03-29] MEDS: LISINOPRIL 5 MG TABLET PEG SCH (09:00)
[2018-03-29] MEDS: CYANOCOBALAMIN 1,000 MCG TABLET PEG SCH ×2 (09:00→16:30)
[2018-03-29] MEDS ORDERED: IV 1/2NS 1000 ML 1,000 ML IV ONE (10:45)
[2018-03-29] MEDS ORDERED: ASPIRIN 300 MG RECTAL SUPP RC SCH (10:45)
[2018-03-29 11:03] VITALS: BP 148/70
[2018-03-29] MEDS: ASPIRIN 81 MG TAB.CHEW GT SCH ×2 (15:00→16:30)
[2018-03-29 15:35] VITALS: BP 138/64
[2018-03-29] MEDS ORDERED: NEPRO 1000 ML GT SCH (16:15)
[2018-03-29 20:00] VITALS: BP 115/42
[2018-03-29] MEDS ORDERED: ESCITALOPRAM OXALATE 10 MG TABLET PEG SCH (21:00)
[2018-03-29] MEDS ORDERED: SIMVASTATIN 10 MG TABLET PEG SCH (21:00)
[2018-03-30] VITALS: BP 140/64
[2018-03-30 04:00] VITALS: BP 142/54
[2018-03-30] MEDS: BLOOD SUGAR DIAGNOSTIC 1 EACH STRIP VI SCH ×2 (06:31→12:30)
[2018-03-30] MEDS: FAMOTIDINE 20 MG TABLET PEG SCH (06:31)
[2018-03-30 06:33] LABS: BASOPHILS % (AUTO) 0.2 % (0.0-2.0); EOSINOPHILS # (AUTO) 0.1 K/uL (0.0-0.7); HEMATOCRIT 34.1 % (31.2-41.9); HEMOGLOBIN 11.2 g/dL (10.9-14.3); LYMPHOCYTES # (AUTO) 1.8 K/uL (20.0-40.0); LYMPHOCYTES % (AUTO) 14.6 % (20.5-51.5); MEAN CORPUSCULAR HGB CONC 33 g/dL (32.3-35.6); MEAN CORPUSCULAR VOLUME 91.2 fL (75.5-95.3); MONOCYTES # (AUTO) 0.9 K/uL (2.0-10.0); MONOCYTES % (AUTO) 7.3 % (0.0-11.0); NEUTROPHILS # (AUTO) 9.5 K/uL (1.8-8.9); NEUTROPHILS % (AUTO) 76.9 % (38.5-71.5); PLATELET COUNT (AUTO) 212 K/uL (179-408); RED BLOOD CELL COUNT(AUTO) 3.74 MIL/uL (3.63-4.92)
[2018-03-30 06:37] LABS: WHITE BLOOD COUNT (AUTO) 12.4 K/uL (3.8-11.8)
[2018-03-30 06:38] LABS: CARBON DIOXIDE 26 mmol/L (21-32); CHLORIDE 112 mmol/L (98-107); CREATININE 1.2 mg/dL (0.6-1.3); GLUCOSE 269 mg/dL (74-106); MAGNESIUM 2.5 mg/dL (1.8-2.4); PHOSPHOROUS 2.4 mg/dL (2.5-4.9); POTASSIUM 4.3 mmol/L (3.5-5.1); UREA NITROGEN, BLOOD 33 mg/dL (7-18)
[2018-03-30] MEDS: MULTIVIT, IRON, MIN NO. 8, FA TABLET PEG SCH (09:33)
[2018-03-30] MEDS: LISINOPRIL 5 MG TABLET PEG SCH (09:38)
[2018-03-30] MEDS: ASCORBIC ACID 500 MG TABLET GT SCH (09:38)
[2018-03-30] MEDS: FUROSEMIDE 20 MG TABLET PEG SCH (09:39)
[2018-03-30] MEDS: AMLODIPINE 2.5 MG TABLET PEG SCH (09:39)
[2018-03-30] MEDS: LACTOBACILLUS RHAMNOSUS GG 1 EACH CAPSULE PEG SCH (09:39)
[2018-03-30] MEDS: ASPIRIN 81 MG TAB.CHEW GT SCH (09:41)
[2018-03-30] MEDS: DOCUSATE SODIUM 100 MG CAPSULE PO SCH (09:54)
[2018-03-30] MEDS: CYANOCOBALAMIN 1,000 MCG TABLET PEG SCH (09:54)
[2018-03-30] MEDS: CALCIUM CARBONATE 500 MG TABLET PEG SCH (09:56)
[2018-03-30] MEDS: INSULIN REGULAR, HUMAN 300 UNIT/3 ML VIAL SQ PRN ×2 (10:00→12:32)
[2018-03-30 11:49] VITALS: BP 121/39
[2018-03-30] MEDS: RIVASTIGMINE 4.6 MG PATCH TD SCH (12:29)
== END 2018-03-30 15:30 | DRG 393 ==
LOC: ER 12:15 → MED 14:38 → TELE 03-28 10:20 → MED 03-30 13:47
PROVIDERS: ADMIT Internal Medicine; ATTEND Internal Medicine
PROC: 0DH67UZ Insertion of Feeding Device into Stomach, Via Natural or Artificial Opening (ICD-10-PCS; principal; 2018-03-28)
PROC: 0DH67UZ Insertion of Feeding Device into Stomach, Via Natural or Artificial Opening (ICD-10-PCS; 2018-03-29)
DX: Z43.1 Encounter for attention to gastrostomy (principal); N17.0 Acute kidney failure with tubular necrosis; I21.A1 Myocardial infarction type 2; E87.0 Hyperosmolality and hypernatremia; G23.1 Progressive supranuclear ophthalmoplegia [Steele-Richardson-Olszewski]; G93.40 Encephalopathy, unspecified; E86.0 Dehydration; R13.10 Dysphagia, unspecified; Z88.2 Allergy status to sulfonamides; E78.5 Hyperlipidemia, unspecified; Z87.81 Personal history of (healed) traumatic fracture; D64.9 Anemia, unspecified; G20 Parkinson's disease; F03.90 Unspecified dementia, unspecified severity, without behavioral disturbance, psychotic disturbance, mood disturbance, and anxiety; E11.9 Type 2 diabetes mellitus without complications; I11.9 Hypertensive heart disease without heart failure; E03.9 Hypothyroidism, unspecified; N32.81 Overactive bladder; Z74.01 Bed confinement status; Z79.83 Long term (current) use of bisphosphonates
CPT/HCPCS: 36415; 70030-TC; 71045; 74018; 83735; 84100; 84156; 84300; 85025; 85730; 93005; A4217; A4663; C1758; G0378; J1815; J3490; J7030; Q9963

== ENCOUNTER 2018-04-06 06:21 | Inpatient (IN) | payer MEDICARE, MEDICAID ==
[~2018-04-06] VITALS: Ht 165.1 cm; Wt 68.0 kg
[~2018-04-06 06:21] MED LIST changes: +FURO-152 PO
[2018-04-06] MEDS ORDERED: DEXT15DR6 OP (06:49)
[2018-04-06] MEDS ORDERED: POLY15DR27 OP (06:50)
[2018-04-06] MEDS ORDERED: IV NORMAL SALINE 500 ML BAG IV ONE (07:00)
[2018-04-06 07:09] LABS: HEMOGLOBIN 9.2 g/dL (10.9-14.3)
[2018-04-06 07:10] LABS: EOSINOPHILS # (AUTO) 0.3 K/uL (0.0-0.7); LYMPHOCYTES # (AUTO) 1.4 K/uL (20.0-40.0)
[2018-04-06 07:16] LABS: BASOPHILS % (AUTO) 0.3 % (0.0-2.0); EOSINOPHILS % (AUTO) 5.2 % (0.0-7.0); HEMATOCRIT 26.5 % (31.2-41.9); LYMPHOCYTES % (AUTO) 20.4 % (20.5-51.5); MEAN CORPUSCULAR HEMOGLOBIN 30.6 uug (24.7-32.8); MEAN CORPUSCULAR HGB CONC 35 g/dL (32.3-35.6); MEAN CORPUSCULAR VOLUME 88.7 fL (75.5-95.3); MONOCYTES # (AUTO) 0.8 K/uL (2.0-10.0); MONOCYTES % (AUTO) 11.7 % (0.0-11.0); NEUTROPHILS # (AUTO) 4.1 K/uL (1.8-8.9); NEUTROPHILS % (AUTO) 62.4 % (38.5-71.5); RED BLOOD CELL COUNT(AUTO) 2.99 MIL/uL (3.63-4.92)
[2018-04-06 07:17] LABS: PLATELET COUNT (AUTO) 154 K/uL (179-408); WHITE BLOOD COUNT (AUTO) 6.7 K/uL (3.8-11.8)
[2018-04-06 07:24] LABS: ALANINE AMINOTRANSFERASE 27 U/L (14-59); ALKALINE PHOSPHATASE 75 U/L (50-136); ASPARTATE AMINOTRANSFERASE 17 U/L (15-37); BILIRUBIN,DIRECT 0.2 mg/dL (0.0-0.2); BILIRUBIN,TOTAL 0.6 mg/dL (0.2-1.0); CARBON DIOXIDE 33 mmol/L (21-32); CHLORIDE 102 mmol/L (98-107); CREATININE 1.1 mg/dL (0.6-1.3); GLUCOSE 157 mg/dL (74-106); TOTAL PROTEIN, SERUM 6.9 g/dL (6.4-8.2); UREA NITROGEN, BLOOD 68 mg/dL (7-18)
[2018-04-06 09:00] VITALS: BP 112/45
[2018-04-06] MEDS ORDERED: Medication Not On Formulary EA (Lactulose (Duphalac) 30 ML) GT SCH (10:00)
[2018-04-06] MEDS ORDERED: hydrALAZINE HCL 25 MG TABLET PO PRN (10:00)
[2018-04-06] MEDS ORDERED: DEXTROSE 50% 50 ML DISP.SYRIN IV PRN (10:00)
[2018-04-06] MEDS ORDERED: MAGNESIUM HYDROXIDE 30 ML LIQUID UDC PO PRN (10:00)
[2018-04-06] MEDS ORDERED: ZOLPIDEM 5 MG TABLET PO PRN (10:00)
[2018-04-06] MEDS ORDERED: ACETAMINOPHEN 325 MG TABLET PO PRN (10:00)
[2018-04-06] MEDS ORDERED: ONDANSETRON 4 MG/2 ML VIAL IV PRN (10:00)
[2018-04-06] MEDS ORDERED: Z GUARD REMEDY PASTE 57 GM TUBE TOP PRN (10:00)
[2018-04-06] MEDS: BLOOD SUGAR DIAGNOSTIC 1 EACH STRIP VI SCH ×3 (11:28→23:56)
[2018-04-06] MEDS: IPRATROPIUM BROMIDE 0.5 MG/2.5 ML NEBU NEB SCH ×4 (11:35→22:45)
[2018-04-06] MEDS: ALBUTEROL SULFATE 1.25 MG/3 ML NEBU NEB SCH ×4 (11:35→22:45)
[2018-04-06] MEDS ORDERED: MAGNESIUM HYDROXIDE 30 ML LIQUID UDC GT PRN (11:37)
[2018-04-06] MEDS ORDERED: ZOLPIDEM 5 MG TABLET GT PRN (11:38)
[2018-04-06] MEDS ORDERED: hydrALAZINE HCL 25 MG TABLET GT PRN (11:57)
[2018-04-06 12:00] VITALS: BP 129/56
[2018-04-06] MEDS ORDERED: LACTULOSE 20 G/30 ML LIQUID UDC GT PRN (12:00)
[2018-04-06] MEDS: INSULIN REGULAR, HUMAN 300 UNIT/3 ML VIAL SQ PRN ×3 (12:55→23:57)
[2018-04-06] MEDS: SIMETHICONE 40 MG/0.6 ML 30 ML BOTTLE GT SCH ×2 (13:55→16:13)
[2018-04-06] MEDS: MULTIVIT, IRON, MIN NO. 8, FA TABLET GT SCH (13:55)
[2018-04-06] MEDS: DOCUSATE SODIUM 100 MG/10 ML LIQUID UDC GT SCH (16:13)
[2018-04-06] MEDS: FAMOTIDINE 20 MG TABLET GT SCH (16:13)
[2018-04-06] MEDS: ACETAMINOPHEN 650 MG/20.3 ML LIQUID UDC GT PRN (16:13)
[2018-04-06 16:15] VITALS: BP 126/44
[2018-04-06] MEDS ORDERED: DOCUSATE SODIUM 100 MG CAPSULE PO SCH (17:00)
[2018-04-06] MEDS ORDERED: NEPRO 1000 ML GT SCH (18:00)
[2018-04-06 20:00] VITALS: BP 135/74
[2018-04-06] MEDS: AMLODIPINE 2.5 MG TABLET GT SCH (20:28)
[2018-04-06] MEDS ORDERED: PRAVASTATIN SODIUM 20 MG PO SCH (21:00)
[2018-04-06] MEDS ORDERED: LACTOBACILLUS RHAMNOSUS GG 1 EACH CAPSULE PO SCH (21:00)
[2018-04-06] MEDS ORDERED: ATORVASTATIN 10 MG TABLET GT SCH (21:00)
[2018-04-06] MEDS ORDERED: Medication Not On Formulary EA (Escitalopram Oxalate (Lexapro) 5 MG) PO SCH (21:00)
[2018-04-06] MEDS ORDERED: ESCITALOPRAM OXALATE 10 MG TABLET GT SCH (21:00)
[2018-04-07] MEDS: ALBUTEROL SULFATE 1.25 MG/3 ML NEBU NEB SCH ×4 (02:38→15:30)
[2018-04-07] MEDS: IPRATROPIUM BROMIDE 0.5 MG/2.5 ML NEBU NEB SCH ×4 (02:38→15:30)
[2018-04-07 04:30] VITALS: BP 176/79
[2018-04-07] MEDS: ACETAMINOPHEN 650 MG/20.3 ML LIQUID UDC GT PRN (04:52)
[2018-04-07 05:56] VITALS: BP 164/58
[2018-04-07] MEDS: BLOOD SUGAR DIAGNOSTIC 1 EACH STRIP VI SCH ×2 (06:13→11:16)
[2018-04-07] MEDS: INSULIN REGULAR, HUMAN 300 UNIT/3 ML VIAL SQ PRN (06:36)
[2018-04-07 06:41] LABS: BASOPHILS % (AUTO) 0.2 % (0.0-2.0); EOSINOPHILS # (AUTO) 0.1 K/uL (0.0-0.7); EOSINOPHILS % (AUTO) 0.9 % (0.0-7.0); HEMATOCRIT 29.1 % (31.2-41.9); HEMOGLOBIN 9.9 g/dL (10.9-14.3); LYMPHOCYTES # (AUTO) 0.9 K/uL (20.0-40.0); LYMPHOCYTES % (AUTO) 7.9 % (20.5-51.5); MEAN CORPUSCULAR HEMOGLOBIN 30.6 uug (24.7-32.8); MEAN CORPUSCULAR HGB CONC 34 g/dL (32.3-35.6); MEAN CORPUSCULAR VOLUME 90.3 fL (75.5-95.3); MONOCYTES % (AUTO) 8.5 % (0.0-11.0); NEUTROPHILS # (AUTO) 9.4 K/uL (1.8-8.9); NEUTROPHILS % (AUTO) 82.5 % (38.5-71.5); PLATELET COUNT (AUTO) 211 K/uL (179-408); RED BLOOD CELL COUNT(AUTO) 3.23 MIL/uL (3.63-4.92); WHITE BLOOD COUNT (AUTO) 11.4 K/uL (3.8-11.8)
[2018-04-07 07:00] VITALS: BP 142/46
[2018-04-07 07:01] LABS: IRON, SERUM 34 ug/dL (50-175)
[2018-04-07 07:14] LABS: CARBON DIOXIDE 29 mmol/L (21-32); CHLORIDE 104 mmol/L (98-107); CHOLESTEROL 184 mg/dL (<200); CREATININE 1.2 mg/dL (0.6-1.3); FERRITIN 327 ng/mL (8-252); HDL CHOLESTEROL 57 mg/dL (40-60); POTASSIUM 3.9 mmol/L (3.5-5.1); TRIGLYCERIDES 260 MG/DL (30-150); UREA NITROGEN, BLOOD 49 mg/dL (7-18)
[2018-04-07 07:25] LABS: GLUCOSE 325 mg/dL (74-106)
[2018-04-07] MEDS: FAMOTIDINE 20 MG TABLET GT SCH (08:01)
[2018-04-07] MEDS ORDERED: FUROSEMIDE 20 MG TABLET GT SCH (09:00)
[2018-04-07] MEDS ORDERED: Medication Not On Formulary EA (Multivitamins W-Minerals (Multivitamin With Minerals) 1 PO SCH (09:00)
[2018-04-07] MEDS ORDERED: ASCORBIC ACID 500 MG TABLET GT SCH (09:00)
[2018-04-07] MEDS ORDERED: CALCIUM CARBONATE 500 MG TABLET GT SCH (09:00)
[2018-04-07] MEDS ORDERED: CYANOCOBALAMIN 1,000 MCG TABLET GT SCH (09:00)
[2018-04-07] MEDS ORDERED: LISINOPRIL 5 MG TABLET GT SCH (09:00)
[2018-04-07] MEDS ORDERED: RIVASTIGMINE 4.6 MG PATCH TD SCH (09:00)
[2018-04-07] MEDS: AMLODIPINE 2.5 MG TABLET GT SCH (09:02)
[2018-04-07] MEDS: MULTIVIT, IRON, MIN NO. 8, FA TABLET GT SCH (09:03)
[2018-04-07] MEDS: SIMETHICONE 40 MG/0.6 ML 30 ML BOTTLE GT SCH ×2 (09:03→13:10)
[2018-04-07] MEDS: DOCUSATE SODIUM 100 MG/10 ML LIQUID UDC GT SCH (09:03)
[2018-04-07 11:07] VITALS: BP 122/59
[2018-04-09 10:07] LABS: CALCITRIOL VIT D,1,25 DIHYDROX 8.8 pg/mL (19.9-79.3)
[2018-04-11] MEDS ORDERED: ALENDRONATE SODIUM 70 MG TABLET PO SCH (06:30)
== END 2018-04-07 14:50 | DRG 393 ==
LOC: ER 06:25 → MED 08:11
PROVIDERS: ADMIT Internal Medicine; ATTEND Internal Medicine
PROC: 0D20XUZ Change Feeding Device in Upper Intestinal Tract, External Approach (ICD-10-PCS; principal; 2018-04-06)
PROC: 3E0G76Z Introduction of Nutritional Substance into Upper GI, Via Natural or Artificial Opening (ICD-10-PCS; 2018-04-06)
DX: Z43.1 Encounter for attention to gastrostomy (principal); N17.0 Acute kidney failure with tubular necrosis; G23.1 Progressive supranuclear ophthalmoplegia [Steele-Richardson-Olszewski]; G93.40 Encephalopathy, unspecified; E03.9 Hypothyroidism, unspecified; Z88.2 Allergy status to sulfonamides; R13.10 Dysphagia, unspecified; E83.52 Hypercalcemia; D64.9 Anemia, unspecified; K21.9 Gastro-esophageal reflux disease without esophagitis; E78.5 Hyperlipidemia, unspecified; R74.8 Abnormal levels of other serum enzymes; E11.9 Type 2 diabetes mellitus without complications; Z79.4 Long term (current) use of insulin; H04.123 Dry eye syndrome of bilateral lacrimal glands; N32.81 Overactive bladder; Z74.01 Bed confinement status; Z87.81 Personal history of (healed) traumatic fracture; Z79.83 Long term (current) use of bisphosphonates; I25.2 Old myocardial infarction; G20 Parkinson's disease; F03.90 Unspecified dementia, unspecified severity, without behavioral disturbance, psychotic disturbance, mood disturbance, and anxiety; R91.8 Other nonspecific abnormal finding of lung field; E86.9 Volume depletion, unspecified; I10 Essential (primary) hypertension
CPT/HCPCS: 36415; 71045; 74018; 82652; 83550; 83735; 83970; 84100; 85025; 85730; 93005; 94640; 94664; A4663; G0378; J2405; J3590; J7040

== ENCOUNTER 2018-05-11 14:27 | Inpatient (IN) | payer MEDICARE, MEDICAID ==
[~2018-05-11] VITALS: Ht 149.9 cm; Wt 61.2 kg
[~2018-05-11 14:27] MED LIST changes: +ACET-73 GT; -ACET-73 PO; +ALEN70TA3 GT; -ALEN70TA3 PO; +CALC500T3 GT; -CALC500T3 PO; +CYAN10009 GT; -CYAN10009 PO; +DOCU-141 GT; -DOCU-141 PO; +LISI-607 GT; -LISI-607 PO; +MULT1TAB11 GT; -MULT1TAB11 PO; +POLY15DR27 EACHEYE; +PRAV20TA GT; -PRAV20TA PO
[2018-05-11] MEDS ORDERED: ALBUTEROL SULFATE 2.5 MG/3 ML NEBU NEB ONE (14:45)
[2018-05-11] MEDS ORDERED: ALBUTEROL SULFATE 2.5 MG/3 ML NEBU ONE (14:50)
[2018-05-11 15:07] LABS: BASOPHILS # (AUTO) 0.1 K/uL (0.0-8.0); BASOPHILS % (AUTO) 0.6 % (0.0-2.0); EOSINOPHILS # (AUTO) 0.8 K/uL (0.0-0.7); EOSINOPHILS % (AUTO) 5.5 % (0.0-7.0); HEMOGLOBIN 11.2 g/dL (10.9-14.3); LYMPHOCYTES # (AUTO) 1.5 K/uL (20.0-40.0); LYMPHOCYTES % (AUTO) 11.3 % (20.5-51.5); MEAN CORPUSCULAR HEMOGLOBIN 29.4 uug (24.7-32.8); MEAN CORPUSCULAR HGB CONC 32 g/dL (32.3-35.6); MONOCYTES # (AUTO) 1.1 K/uL (2.0-10.0); MONOCYTES % (AUTO) 8.2 % (0.0-11.0); NEUTROPHILS # (AUTO) 10.2 K/uL (1.8-8.9); NEUTROPHILS % (AUTO) 74.4 % (38.5-71.5); PLATELET COUNT (AUTO) 269 K/uL (179-408); WHITE BLOOD COUNT (AUTO) 13.7 K/uL (3.8-11.8)
[2018-05-11 15:18] LABS: CARBON DIOXIDE 31 mmol/L (21-32); CHLORIDE 107 mmol/L (98-107); CREATININE 2.2 mg/dL (0.6-1.3); POTASSIUM 3.7 mmol/L (3.5-5.1)
--- NOTE | 2018-05-11 15:20 | NUR ---
Lauro muhammad, and myself attempted 5 times to insert IV line, but not able to.
[2018-05-11 15:21] LABS: GLUCOSE 309 mg/dL (74-106); UREA NITROGEN, BLOOD 102 mg/dL (7-18)
[2018-05-11 15:24] LABS: BILIRUBIN,DIRECT 0.1 mg/dL (0.0-0.2); BILIRUBIN,TOTAL 0.4 mg/dL (0.2-1.0)
--- NOTE | 2018-05-11 15:24 | NUR ---
Notify nursing supSchuyler regarding Picc line insertion.
[2018-05-11 15:25] LABS: ALANINE AMINOTRANSFERASE 22 U/L (14-59); ALKALINE PHOSPHATASE 101 U/L (50-136); ASPARTATE AMINOTRANSFERASE 15 U/L (15-37); TOTAL PROTEIN, SERUM 7.7 g/dL (6.4-8.2)
--- NOTE | 2018-05-11 15:40 | NUR ---
Dr Crawford attempted 2 x on external jugular veins to insert saline lock , but unable.
[2018-05-11] MEDS ORDERED: PIPERACILLIN SODIUM/TAZOBACTAM 3.375 G in IV DEXTROSE 5% 50 ML IV ONE (15:45)
[2018-05-11] MEDS ORDERED: VANCOMYCIN IV 1,000 MG in IV DEXTROSE 5% 250 ML IV ONE (15:45)
[2018-05-11] MEDS ORDERED: FAMO20TA8 GT (15:59)
[2018-05-11] MEDS ORDERED: PIPE3.379 IV (15:59)
[2018-05-11] MEDS ORDERED: VANC1VIA IV (15:59)
[2018-05-11] MEDS ORDERED: ACID1TAB12 GT (15:59)
[2018-05-11] MEDS ORDERED: INSU100C4 SUBCUT (15:59)
[2018-05-11] MEDS ORDERED: ESCI5TAB GT (15:59)
[2018-05-11] MEDS ORDERED: LINA5TAB GT (15:59)
[2018-05-11] MEDS ORDERED: BISA10SU8 RC (15:59)
[2018-05-11] MEDS ORDERED: GUAI100S27 GT (15:59)
[2018-05-11] MEDS ORDERED: HYDR-4076 GT (15:59)
[2018-05-11] MEDS ORDERED: BLOO-140 IN ×2 (15:59)
[2018-05-11] MEDS ORDERED: PIPERACILLIN/TAZOBACTAM/D5W 50 ML IV ONE (16:15)
--- NOTE | 2018-05-11 16:21 | NUR ---
spoke to supervisor files regarding PICC line nurse, ETA is 3 hours or more.
[2018-05-11] MEDS ORDERED: VANCOMYCIN IV 200 ML ONE (16:28)
--- NOTE | 2018-05-11 16:50 | NUR ---
PICC line RN spoke to Pt's daughter regarding PICC insertion, Pt daughter stated, She doesn"t want her mother to have PICC line but agrees to MID line.
[2018-05-11 17:19] VITALS: BP 123/47
--- NOTE | 2018-05-11 17:30 | NUR ---
RECEIVED FOR ADMISSION 87 YEARS OLD FEMALE BY YUMIKO TO ROOM 225 WITH DX OF PNEUMONIA AND ABNORMAL LABS PLACED INTO BED FIXED AND MADE COMFORTABLE PATIENT IS APHASIC CONFUSED AND DISORIENTED ON O2 AT 2L/M BY NASAL WITH NO SHORTNESS OF BREATH AT THIS TIME.RECEIVED WITH VANCOMICIN INFUSING FROM THE ED TO HER RIGHT ARM MID MINE INTACT AND PATENT CONTRACTED UPPER AND LOWER EXT GT SITE WITH REDNESS CALLED DR DORSEY OFFICE LEFT A MESSAGE FOR ADMISSION ORDERS
--- NOTE | 2018-05-11 18:40 | NUR ---
SECOND CALL TO THE NEPHROLOGY GROUP DR GREENE IS BUSINESS INFORMATION CONSULTANT LEFT ANOTHER MESSAGE AWAITING FOR RETURN CALL
--- NOTE | 2018-05-11 18:58 | NUR ---
DR GREENE RETURNED CALL WITH NEW ORDERS AND NOTED.
[2018-05-11 20:00] VITALS: BP 115/47
--- NOTE | 2018-05-11 20:08 | NUR ---
CLINICAL PHARMACY NOTES( VANCOMYCIN DOSING) S: 87 YO female with DX of pneumoniae; acute renal insufficiency ordered vancomycin pt on Zosyn as well ( changed to extended interval) O: BUN/SCR 102/2.2; WBC 13.7, TEMP 98.7; CRCL 12.52; DOSING WT 135 LB A/P: PT received vancomycin 1 gm in ER 2 16:29. Due to advanced age and compromised renal FXN will dose Vancomycin by fall of level. ordered a random Vanco level tomorrow @ 1500. will follow up
--- NOTE | 2018-05-11 20:15 | NUR ---
PATIENT IS AWAKE IN BED, RESPONSIVE TO VERBAL STIMULI. NO S/S OF ACUTE DISTRESS OR PAIN ON ASSESSMENT. NO FEVER AT PRESENT, SAFETY MEASURES IN PLACE. WILL CONTINUE TO MONITOR PATIENT.
[2018-05-11] MEDS ORDERED: BISACODYL 10 MG SUPP.RECT RC PRN (20:45)
[2018-05-11] MEDS ORDERED: GUAIFENESIN SUGAR FREE 100 MG/5 ML UDC GT PRN (20:45)
[2018-05-11] MEDS ORDERED: hydrALAZINE HCL 25 MG TABLET GT PRN (20:45)
[2018-05-11] MEDS ORDERED: Medication Not On Formulary EA (Lactulose (Duphalac) 30 ML) GT SCH (20:45)
[2018-05-11] MEDS ORDERED: SIMETHICONE 40 MG/0.6 ML 30 ML BOTTLE GT PRN (20:45)
[2018-05-11] MEDS ORDERED: PRAVASTATIN SODIUM 20 MG GT SCH (21:00)
[2018-05-11] MEDS ORDERED: LACTULOSE 20 G/30 ML LIQUID UDC GT PRN (21:00)
[2018-05-11] MEDS ORDERED: Medication Not On Formulary EA (Acidophilus/Bulgaricus (Floranex Tablet) 1 EACH) GT SCH (21:00)
[2018-05-11] MEDS ORDERED: IPRATROPIUM BROMIDE 0.5 MG/2.5 ML NEBU NEB PRN (21:15)
[2018-05-11] MEDS ORDERED: ALBUTEROL SULFATE 2.5 MG/3 ML NEBU NEB PRN (21:15)
[2018-05-11] MEDS ORDERED: DEXTROSE 50% 50 ML DISP.SYRIN IV PRN (21:15)
[2018-05-11] MEDS ORDERED: NEPRO 1000 ML GT PRN (21:45)
[2018-05-11] MEDS: ATORVASTATIN 10 MG TABLET GT SCH (21:49)
[2018-05-11] MEDS: ACIDOPHILUS/BULGARICUS CHEW TAB GT SCH (21:49)
[2018-05-11] MEDS: POLYVINYL ALCOHOL OPHT DROPS 15 ML BOTTLE EACHEYE SCH (21:49)
[2018-05-11] MEDS: NYSTATIN POWDER 15 GM BOTTLE TOP SCH (21:50)
[2018-05-11] MEDS: Z GUARD REMEDY PASTE 57 GM TUBE TOP SCH (21:50)
--- NOTE | 2018-05-11 22:45 | NUR ---
g-TUBE PLACEMENT ASSESSED BY AUSCULTATION. NO RESIDUAL PRESENTED. MEDICATIONS ADMIT. AND FLUSHED EASILY. REDNESS AROUND G-TUBE NOTED, POWDER APPLIED. DRY GAUZE PLACED.
[2018-05-12] VITALS: BP 121/55
[2018-05-12] MEDS: IV 1/2NS 1000 ML 1,000 ML IV PRN ×2 (00:06→18:34)
[2018-05-12] MEDS: BLOOD SUGAR DIAGNOSTIC 1 EACH STRIP VI SCH ×4 (00:07→17:11)
[2018-05-12] MEDS: INSULIN REGULAR, HUMAN 300 UNIT/3 ML VIAL SQ PRN ×4 (00:09→17:18)
[2018-05-12] MEDS: PIPERACILLIN/TAZOBACTAM/D5W 50 ML IV SCH ×2 (04:19→15:29)
[2018-05-12] MEDS: ACETAMINOPHEN ES 500 MG TABLET GT PRN (05:32)
[2018-05-12 06:00] VITALS: BP 119/53
--- NOTE | 2018-05-12 06:38 | NUR ---
PATIENT TOLERATING G-TUBE WELL, ASPIRATION PRECAUTIONS MAINTAINED. TYLENOL PRN GIVEN FOR TEMP 99.5 WITH EFFECT, NO FEVER AT PRESENT. NO FURTHER CHANGES IN STATUS
--- NOTE | 2018-05-12 07:15 | NUR ---
RECEIVED PATIENT IN BED AWAKE APHASIC CONFUSED AND DISORIENTED ALL NEEDS ANTICIPATED AND SATISFIED MAX ASSIT FOR ALL ADL TURNED AND REPOSITIONED WITH PILLOWS FOR SUPPORT HEELS FLOATED ON O2 AT 2L/M BY NASAL CANULA WITH NO SOB AT THIS TIME.GT FEEDINGS IN PROGRESS AT 60ML/HR ALSO ON IVF ORDERED MADE COMFORTABLE AND WILL CONTINUE TO OBSERVE.
[2018-05-12 07:17] LABS: BASOPHILS # (AUTO) 0.1 K/uL (0.0-8.0); BASOPHILS % (AUTO) 0.8 % (0.0-2.0); EOSINOPHILS # (AUTO) 0.6 K/uL (0.0-0.7); HEMATOCRIT 32.4 % (31.2-41.9); HEMOGLOBIN 10.4 g/dL (10.9-14.3); LYMPHOCYTES # (AUTO) 1.6 K/uL (20.0-40.0); LYMPHOCYTES % (AUTO) 12.6 % (20.5-51.5); MEAN CORPUSCULAR HEMOGLOBIN 29.8 uug (24.7-32.8); MEAN CORPUSCULAR HGB CONC 32 g/dL (32.3-35.6); MONOCYTES # (AUTO) 0.8 K/uL (2.0-10.0); MONOCYTES % (AUTO) 6.2 % (0.0-11.0); NEUTROPHILS # (AUTO) 9.7 K/uL (1.8-8.9); NEUTROPHILS % (AUTO) 75.4 % (38.5-71.5); PLATELET COUNT (AUTO) 241 K/uL (179-408); RED BLOOD CELL COUNT(AUTO) 3.48 MIL/uL (3.63-4.92); WHITE BLOOD COUNT (AUTO) 12.9 K/uL (3.8-11.8)
[2018-05-12 07:22] LABS: CARBON DIOXIDE 28 mmol/L (21-32); CHLORIDE 107 mmol/L (98-107); CREATININE 1.9 mg/dL (0.6-1.3); MAGNESIUM 3.1 mg/dL (1.8-2.4); POTASSIUM 3.6 mmol/L (3.5-5.1)
[2018-05-12 07:26] LABS: GLUCOSE 373 mg/dL (74-106); UREA NITROGEN, BLOOD 82 mg/dL (7-18)
--- NOTE | 2018-05-12 07:45 | NUR ---
RECEIVED A CALL FROM THE LAB GLUCOSE IS [address] B[address] IS [address] GREENE NOTIFIED WITH NO NEW ORDERS AT THIS TIME.
[2018-05-12] MEDS: ACIDOPHILUS/BULGARICUS CHEW TAB GT SCH ×2 (08:57→21:09)
[2018-05-12] MEDS: MULTIVIT, IRON, MIN NO. 8, FA TABLET GT SCH (08:57)
[2018-05-12] MEDS: FAMOTIDINE 20 MG TABLET GT SCH ×2 (08:57→16:39)
[2018-05-12] MEDS: ESCITALOPRAM OXALATE 10 MG TABLET GT SCH (08:58)
[2018-05-12] MEDS: CYANOCOBALAMIN 1,000 MCG TABLET GT SCH (08:58)
[2018-05-12] MEDS: CALCIUM CARBONATE 500 MG TABLET GT SCH (08:58)
[2018-05-12] MEDS: ASCORBIC ACID 500 MG TABLET GT SCH (08:58)
[2018-05-12] MEDS: LINAGLIPTIN 5 MG TABLET GT SCH (08:58)
[2018-05-12] MEDS ORDERED: FUROSEMIDE 20 MG TABLET GT SCH (09:00)
[2018-05-12] MEDS: POLYVINYL ALCOHOL OPHT DROPS 15 ML BOTTLE EACHEYE SCH ×4 (09:00→21:09)
[2018-05-12] MEDS ORDERED: Medication Not On Formulary EA (Escitalopram Oxalate (Lexapro) 5 MG) GT SCH (09:00)
[2018-05-12] MEDS ORDERED: DOCUSATE SODIUM 100 MG CAPSULE PO SCH (09:00)
[2018-05-12] MEDS: DOCUSATE SODIUM 100 MG/10 ML LIQUID UDC GT SCH ×2 (09:00→16:39)
[2018-05-12] MEDS ORDERED: LISINOPRIL 5 MG TABLET GT SCH (09:00)
[2018-05-12] MEDS ORDERED: Medication Not On Formulary EA (Multivitamins W-Minerals (Multivitamin With Minerals) 1 GT SCH (09:00)
[2018-05-12] MEDS: RIVASTIGMINE 4.6 MG PATCH TD SCH (09:01)
[2018-05-12] MEDS: NYSTATIN POWDER 15 GM BOTTLE TOP SCH ×2 (09:01→21:10)
[2018-05-12] MEDS: Z GUARD REMEDY PASTE 57 GM TUBE TOP SCH ×2 (09:04→21:10)
[2018-05-12] MEDS: INSULIN GLARGINE,HUM 300 UNITS/3 ML CARTRIDGE SQ SCH ×2 (09:51→17:21)
--- NOTE | 2018-05-12 10:36 | NUR ---
PATIENT SEEN AND EXAMINED BY DR GLEASON WITH NO NEW ORDERS AT THIS TIME TOLERATING GT FEEDINGS ORDERED.
--- NOTE | 2018-05-12 11:38 | NUR ---
CALLED AND SPOKE WITH DR GREENE RE PATIENT HAS A TEMP OS 100 ORAL AND I ALSO INQUIRED ON HER IVF WHETHER TO CONTINUE ON 100 OR DECREASE WITH NEW ORDERS AND NOTED.
[2018-05-12 12:20] VITALS: BP 120/55
[2018-05-12 12:35] LABS: *BILIRUBIN,URIN NEGATIVE (NEGATIVE); *BLOOD, URINE Trace-lysed (NEGATIVE); *CLARITY,URINE CLEAR (CLEAR); *COLOR,URINE YELLOW (YELLOW); *KETONES,URINE NEGATIVE (NEGATIVE); *PROTEIN,URINE 1+ (NEGATIVE); *UROBILINOGEN,URINE 0.2 E.U./dl (NORMAL); LEUKOCYTE ESTERASE ,URINE NEGATIVE (NEGATIVE); NITRITE, URINE NEGATIVE (NEGATIVE); UGLUCOSE 2+ (NEGATIVE)
[2018-05-12] MEDS: ACETAMINOPHEN 650 MG/20.3 ML LIQUID UDC GT PRN ×3 (12:39→23:36)
[2018-05-12 12:42] LABS: *URINE TOTAL PROTEIN RANDOM 42.2 mg/dL (<150/24HR)
[2018-05-12 12:55] LABS: BACTERIA,URINE FEW /HPF (NONE SEEN); SQUAMOUS EPITHELIAL CELL,UR FEW /HPF (NONE SEEN)
--- NOTE | 2018-05-12 13:59 | NUR ---
CLINICAL PHARMACY NOTES( VANCOMYCIN DOSING) S: 87 YO female with DX of pneumoniae; acute renal insufficiency ordered vancomycin pt on Zosyn as well ( changed to extended interval) O: BUN/SCR 82/1.9 ; WBC 12.9 TEMP 100; ; DOSING WT 135 LB A/P: PT received vancomycin 1 gm in ER at 16:29 yesterday. Due to advanced age and compromised renal FXN will dose Vancomycin by fall of level. ordered a random Vanco level today @ 1500. will follow up Addendum: 05/12/18 at 1623 by NISA SELBY ADM VANCOMYCIN RANDOM IS 26.1. NO DOSE TODAY. RANDOM ON ORDER FOR TOMORROW AM AT 0600
[2018-05-12 15:33] VITALS: BP 138/64
--- NOTE | 2018-05-12 16:30 | NUR ---
CALLED AND SPOKE WITH THE CLASSROOM TECHNOLOGY TECHNICIAN RE GT FEEDINGS WITH RECOMMENDATIONS AND NOTED DR GREENE NOTIED WITH ORDERS.
[2018-05-12] MEDS: GLUCERNA 1.2 1000ML LIQUID GT PRN (16:59)
--- NOTE | 2018-05-12 17:58 | NUR ---
GLUCERNA 1.2 REMAINS IN PROGRESS ORDERED PATIENT HAD FEW TIMES BOWEL MOVEMENT VERY SOFT IN CONSISTENCY PATRICK AND ORAL CARE DONE MADE COMFORTABLE AND WILL CONTINUE TO OBSERVE.
[2018-05-12 19:00] VITALS: BP 129/52
--- NOTE | 2018-05-12 20:00 | NUR ---
Received patient laying comfortably in bed. No acute distress noted. Patient is A/O x O. TELE SR, Patient is on O2 2L NC. IVF infusing on the right upper arm. Gtube feeding at 60 cc/hr. Patient Gtube site is red. Nystatin powder applied and changed dressing d/t soiled. Otero draining yellow clear urine. Contracted on the left upper extremities and bilateral lower extremities. Float heels. Sacral redness, mepilex applied. Safety initiated. Call light within reach.
[2018-05-12] MEDS ORDERED: INSULIN ASPART 300 UNIT/3 ML CARTRIDGE SQ SCH (21:00)
[2018-05-12] MEDS: ATORVASTATIN 10 MG TABLET GT SCH (21:10)
[2018-05-13] VITALS: BP 147/66
[2018-05-13] MEDS: BLOOD SUGAR DIAGNOSTIC 1 EACH STRIP VI SCH ×5 (00:54→23:42)
[2018-05-13] MEDS: INSULIN REGULAR, HUMAN 300 UNIT/3 ML VIAL SQ PRN ×5 (01:25→23:43)
--- NOTE | 2018-05-13 02:04 | NUR ---
Received patient lying in bed. Asleep. Appears comfortable. On O2 at 2LPM via NC in place. Midline on right upper arm intact and patent. IVF infusing. GT intact and patent and running. Continue to monitor patient. Safety measure initiated.
[2018-05-13 04:00] VITALS: BP 116/46
[2018-05-13] MEDS: PIPERACILLIN/TAZOBACTAM/D5W 50 ML IV SCH ×2 (04:05→15:10)
--- NOTE | 2018-05-13 06:17 | NUR ---
Patient alert but non-verbal. On O2 at 2LPM via NC in place. O2 sat at 95%. Midline on right upper arm intact and patent. IVF infusing. GT intact and patent. NSR on tele at 86/min. No side effect noted from IV ABX. Safety measure maintained.
[2018-05-13 06:57] LABS: BASOPHILS # (AUTO) 0.1 K/uL (0.0-8.0); BASOPHILS % (AUTO) 0.5 % (0.0-2.0); EOSINOPHILS # (AUTO) 0.5 K/uL (0.0-0.7); EOSINOPHILS % (AUTO) 4.1 % (0.0-7.0); HEMATOCRIT 31.4 % (31.2-41.9); HEMOGLOBIN 10.1 g/dL (10.9-14.3); LYMPHOCYTES # (AUTO) 1.8 K/uL (20.0-40.0); LYMPHOCYTES % (AUTO) 13.9 % (20.5-51.5); MEAN CORPUSCULAR HEMOGLOBIN 29.7 uug (24.7-32.8); MEAN CORPUSCULAR HGB CONC 32 g/dL (32.3-35.6); MEAN CORPUSCULAR VOLUME 92.7 fL (75.5-95.3); MONOCYTES % (AUTO) 7.7 % (0.0-11.0); NEUTROPHILS # (AUTO) 9.7 K/uL (1.8-8.9); NEUTROPHILS % (AUTO) 73.8 % (38.5-71.5); PLATELET COUNT (AUTO) 214 K/uL (179-408); RED BLOOD CELL COUNT(AUTO) 3.39 MIL/uL (3.63-4.92); WHITE BLOOD COUNT (AUTO) 13.1 K/uL (3.8-11.8)
[2018-05-13 07:08] LABS: ALANINE AMINOTRANSFERASE 20 U/L (14-59); ALKALINE PHOSPHATASE 89 U/L (50-136); ASPARTATE AMINOTRANSFERASE 18 U/L (15-37); BILIRUBIN,TOTAL 0.2 mg/dL (0.2-1.0); CARBON DIOXIDE 27 mmol/L (21-32); CHLORIDE 116 mmol/L (98-107); CREATININE 1.4 mg/dL (0.6-1.3); GLUCOSE 203 mg/dL (74-106); MAGNESIUM 3.1 mg/dL (1.8-2.4); PHOSPHOROUS 3.7 mg/dL (2.5-4.9); TOTAL PROTEIN, SERUM 6.9 g/dL (6.4-8.2); UREA NITROGEN, BLOOD 56 mg/dL (7-18); VANCOMYCIN,RANDOM 20.1 ug/mL (18.0-26.0)
--- NOTE | 2018-05-13 08:00 | NUR ---
Rec'd pt in bed awake. On 2L O2 via n/c, no s/s of resp distress noted. KACY midline in place and patent, infusing Zosyn as ordered. Eliseo well. G-tube in place, off as ordered. To turn on at 1000. Heels offloaded with pillows as eliseo. F/C in place and patent, draining clear yellow urine to bedside drainage bag. All safety precautions in place at this time. Will monitor for change.
[2018-05-13 08:10] VITALS: BP 141/63
[2018-05-13] MEDS: DOCUSATE SODIUM 100 MG/10 ML LIQUID UDC GT SCH ×2 (08:19→16:51)
[2018-05-13] MEDS: POLYVINYL ALCOHOL OPHT DROPS 15 ML BOTTLE EACHEYE SCH ×4 (08:19→20:16)
[2018-05-13] MEDS: LINAGLIPTIN 5 MG TABLET GT SCH (08:20)
[2018-05-13] MEDS: ACIDOPHILUS/BULGARICUS CHEW TAB GT SCH ×2 (08:20→20:16)
[2018-05-13] MEDS: CYANOCOBALAMIN 1,000 MCG TABLET GT SCH (08:20)
[2018-05-13] MEDS: CALCIUM CARBONATE 500 MG TABLET GT SCH (08:20)
[2018-05-13] MEDS: ASCORBIC ACID 500 MG TABLET GT SCH (08:21)
[2018-05-13] MEDS: ESCITALOPRAM OXALATE 10 MG TABLET GT SCH (08:21)
[2018-05-13] MEDS: FAMOTIDINE 20 MG TABLET GT SCH ×2 (08:22→16:51)
[2018-05-13] MEDS: MULTIVIT, IRON, MIN NO. 8, FA TABLET GT SCH (08:22)
[2018-05-13] MEDS: RIVASTIGMINE 4.6 MG PATCH TD SCH (08:23)
[2018-05-13] MEDS: NYSTATIN POWDER 15 GM BOTTLE TOP SCH ×2 (08:24→20:17)
[2018-05-13] MEDS: INSULIN GLARGINE,HUM 300 UNITS/3 ML CARTRIDGE SQ SCH ×2 (08:37→16:57)
[2018-05-13] MEDS: Z GUARD REMEDY PASTE 57 GM TUBE TOP SCH ×2 (09:54→20:16)
--- NOTE | 2018-05-13 11:12 | NUR ---
CLINICAL PHARMACY NOTES( VANCOMYCIN DOSING) S: 87 YO female with DX of pneumoniae; ordered vancomycin O: BUN/SCR 56/1.4 ; WBC 13.1 TEMP 98.9 Vanco random level: 20.1 (with am labs, post vanco 1gm IVPB x1 on 05/11 at 1630) Ht 149.8 cm wt 61.2 kg A/P: Due to advanced age and compromised renal FXN will continue to dose Vancomycin by fall of level. No dose shall be due today since vanco random level with am labs is above 20 mcg/ml. Ordered a random Vanco level tomorrow with am labs. will follow up
[2018-05-13 11:24] VITALS: BP 130/62
[2018-05-13] MEDS: ACETAMINOPHEN 650 MG/20.3 ML LIQUID UDC GT PRN (14:33)
--- NOTE | 2018-05-13 14:35 | NUR ---
Noted pt with 100.2 axillary temp. cooling measures initiated. No s/s of acute distress noted. Tylenol 650mg via GT given as ordered. Will monitor for effectiveness.
[2018-05-13 15:34] VITALS: BP 126/33
--- NOTE | 2018-05-13 15:38 | NUR ---
Tolerating tube feeding, 0 residuals. Improvement in Blood glucose and most renal labs seen. Recommend continue with current regime for now and monitor all nutritional parameters closely. Addendum: 05/13/18 at [address] Amended: Links added.
--- NOTE | 2018-05-13 15:40 | NUR ---
Re-checked axillary temp. Temp noted at 99.7. Cooling measures in place. Will continue to monitor for change.
[2018-05-13] MEDS ORDERED: MUPIROCIN 2% OINT 22 GM TUBE TP SCH (16:30)
--- NOTE | 2018-05-13 16:30 | NUR ---
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 No s/s of infection to nares. No discharge noted. Reported to Dr. Holman and obtained new T.O for contact isolation, start bactroban edvin to harshal nares daily x 10 days. T.O read back and verified. Daughter at bedside and made aware.
[2018-05-13] MEDS: MUPIROCIN 2% OINT 22 GM TUBE TP SCH (17:59)
--- NOTE | 2018-05-13 19:20 | NUR ---
Received patient lying in bed. Asleep. Appears comfortable. Non-verbal. On O2 at 2LPM via NC in place. O2 sat at 96%. Midline on right upper arm intact and patent. IVF infusing. GT intact, patent and running. Isolation precaution observed. Safety measure initiated and call rider within reach.
[2018-05-13 20:00] VITALS: BP 138/47
[2018-05-13] MEDS: ATORVASTATIN 10 MG TABLET GT SCH (20:16)
[2018-05-13] MEDS: GLUCERNA 1.2 1000ML LIQUID GT PRN (20:35)
[2018-05-14] MEDS: IV 1/2NS 1000 ML 1,000 ML IV PRN (03:07)
[2018-05-14] MEDS: PIPERACILLIN/TAZOBACTAM/D5W 50 ML IV SCH ×2 (03:08→16:17)
[2018-05-14 04:21] VITALS: BP 130/40
[2018-05-14] MEDS: BLOOD SUGAR DIAGNOSTIC 1 EACH STRIP VI SCH ×3 (05:20→17:03)
[2018-05-14] MEDS: INSULIN REGULAR, HUMAN 300 UNIT/3 ML VIAL SQ PRN ×2 (05:22→12:45)
--- NOTE | 2018-05-14 06:12 | NUR ---
Patient awake but non-verbal. On O2 at 2LPM via NC in place. Afebrile. Midline on right upper arm intact and patent. IVF infusing. GT intact and patent. No side effect noted from IV ABX. Isolation precaution observe. Reposition for comfort. Safety measure maintained and call rider within reach. Addendum: 05/14/18 at 0613 by DEVEN WYNN RN Otero catheter intact and draining vis gravity.
[2018-05-14 06:32] LABS: BASOPHILS % (AUTO) 0.4 % (0.0-2.0); EOSINOPHILS # (AUTO) 0.5 K/uL (0.0-0.7); EOSINOPHILS % (AUTO) 4.5 % (0.0-7.0); HEMATOCRIT 30.4 % (31.2-41.9); HEMOGLOBIN 9.9 g/dL (10.9-14.3); LYMPHOCYTES # (AUTO) 1.6 K/uL (20.0-40.0); LYMPHOCYTES % (AUTO) 14.7 % (20.5-51.5); MEAN CORPUSCULAR HEMOGLOBIN 30.2 uug (24.7-32.8); MEAN CORPUSCULAR HGB CONC 33 g/dL (32.3-35.6); MEAN CORPUSCULAR VOLUME 92.9 fL (75.5-95.3); MONOCYTES # (AUTO) 0.9 K/uL (2.0-10.0); MONOCYTES % (AUTO) 7.8 % (0.0-11.0); NEUTROPHILS % (AUTO) 72.6 % (38.5-71.5); PLATELET COUNT (AUTO) 207 K/uL (179-408); RED BLOOD CELL COUNT(AUTO) 3.28 MIL/uL (3.63-4.92)
[2018-05-14 06:47] LABS: ALANINE AMINOTRANSFERASE 21 U/L (14-59); ALKALINE PHOSPHATASE 96 U/L (50-136); ASPARTATE AMINOTRANSFERASE 19 U/L (15-37); BILIRUBIN,TOTAL 0.3 mg/dL (0.2-1.0); CARBON DIOXIDE 28 mmol/L (21-32); CHLORIDE 116 mmol/L (98-107); CREATININE 1.2 mg/dL (0.6-1.3); GLUCOSE 214 mg/dL (74-106); MAGNESIUM 2.8 mg/dL (1.8-2.4); PHOSPHOROUS 4.1 mg/dL (2.5-4.9); POTASSIUM 4.9 mmol/L (3.5-5.1); UREA NITROGEN, BLOOD 43 mg/dL (7-18); VANCOMYCIN,RANDOM 12.9 ug/mL (18.0-26.0)
--- NOTE | 2018-05-14 07:15 | NUR ---
PATIENT RECEIVED AND AWAKE , IV FLUIDS RUNNING 0.45% NS AT 50ML/HR, RIGHT UPPER MIDLINE IN PLACE AND INTACT, HYLTON CATHETER DRAINING VIA GRAVITY. FEEDING TURNED OFF AT 6AM, TO RESUME AT 10AM.NO DISTRESS NOTED , PATIENT REMAINS ON CONTACT ISOLATION FOR MRSA NARES. CONTINUE TO MONITOR. REPOSITION FOR PRESSURE RELIEF. CONTINUE TO MONITOR
[2018-05-14] MEDS ORDERED: VANCOMYCIN IV 1 G in PREMIXED 0 EACH IV ONE (09:00)
[2018-05-14] MEDS: RIVASTIGMINE 4.6 MG PATCH TD SCH (09:14)
[2018-05-14] MEDS: FAMOTIDINE 20 MG TABLET GT SCH ×2 (09:14→16:45)
[2018-05-14] MEDS: CALCIUM CARBONATE 500 MG TABLET GT SCH (09:14)
[2018-05-14] MEDS: LINAGLIPTIN 5 MG TABLET GT SCH (09:14)
[2018-05-14] MEDS: ACIDOPHILUS/BULGARICUS CHEW TAB GT SCH ×2 (09:14→20:56)
[2018-05-14] MEDS: DOCUSATE SODIUM 100 MG/10 ML LIQUID UDC GT SCH ×2 (09:14→16:45)
[2018-05-14] MEDS: MUPIROCIN 2% OINT 22 GM TUBE TP SCH ×2 (09:15→16:45)
[2018-05-14] MEDS: Z GUARD REMEDY PASTE 57 GM TUBE TOP SCH ×2 (09:15→20:57)
[2018-05-14] MEDS: POLYVINYL ALCOHOL OPHT DROPS 15 ML BOTTLE EACHEYE SCH ×4 (09:15→20:56)
[2018-05-14] MEDS: ESCITALOPRAM OXALATE 10 MG TABLET GT SCH (09:15)
[2018-05-14] MEDS: MULTIVIT, IRON, MIN NO. 8, FA TABLET GT SCH (09:15)
[2018-05-14] MEDS: CYANOCOBALAMIN 1,000 MCG TABLET GT SCH (09:15)
[2018-05-14] MEDS: ASCORBIC ACID 500 MG TABLET GT SCH (09:15)
[2018-05-14] MEDS: NYSTATIN POWDER 15 GM BOTTLE TOP SCH ×2 (09:18→20:57)
[2018-05-14] MEDS: INSULIN GLARGINE,HUM 300 UNITS/3 ML CARTRIDGE SQ SCH ×2 (09:38→21:22)
--- NOTE | 2018-05-14 10:11 | NUR ---
CLINICAL PHARMACY NOTES( VANCOMYCIN DOSING) S: 87 YO female with DX of pneumoniae; ordered vancomycin O: BUN/SCR 43/1.2 ; WBC 11 TEMP 98.3 Vanco random level: 12.9 with am labs Ht 149.8 cm wt 61.2 kg A/P: Due to advanced age and compromised renal FXN will continue to dose Vancomycin by fall of level. Dosed 1gm vanco x 1 this am per today's random level. Ordered a random Vanco level tomorrow with am labs. will follow up
[2018-05-14 11:23] VITALS: BP 148/55
[2018-05-14] MEDS: GLUCERNA 1.2 1000ML LIQUID GT PRN (11:49)
--- NOTE | 2018-05-14 12:20 | NUR ---
PATIENT NOTED TO BREATHING AT FASTER RATE THAN THIS AM WHEN SHE WAS RECVD DURING REPORT. PATIENT WAS JUST PROVIDED WITH CARE AND REPOSITIONED, VITALS REMAIN STABLE. AFEBRILE. HYLTON CATHETER DRAINING WELL. PATIENT HAD BOWEL MOVEMENT WITH CARE THIS AM, BLOOD SUGAR STABLE, PATIENT CHECKED FOR GTUBE PLACEMENT THIS AM WITH NO RESIDUAL NOTED. PATIENT RESPIRATORY RATE AT 24 BREATHS PER MINUTE. PATIENT NONVERBAL UNABLE TO VERBALIZE IF SHE IS IN PAIN OR ANXIOUS. PATIENT REDIRECTED FOR EMOTIONAL SUPPORT DAUGHTER AT BEDSIDE . DR GREENE HERE TO SEE PATIENT INFORMED OF STATUS. PATIENT REMAINS STABLE AT THIS TIME. CONTINUE TO MONITOR.NO NEW ORDERS FROM .
[2018-05-14] MEDS: ACETAMINOPHEN ES 500 MG TABLET GT PRN (13:45)
--- NOTE | 2018-05-14 13:45 | NUR ---
PATIENT CALMER AT THIS TIME, WAS REPOSITIONED AGAIN FOR PRESSURE RELIEF, EVERY 2 HOURS, ON AIR MATTRESS. PERICARE RENDERED. PATIENT PROVIDED WITH PRN TYLENOL TO HELP WITH ANY DISCOMFORT WHEN REPOSITIONING CONTINUE TO MONITOR
--- NOTE | 2018-05-14 15:10 | NUR ---
PATIENT DAUGHTER REPORTED THAT PATIENT WAS ONLY ON FEEDING AT HS FROM 8P TO 8A AND ONLY TWO HOURS DURING AFTERNOON, PATIENT RECEIVING 20 HRS DURING HOSPITALIZATION, NOTED SOME ABDOMINAL DISTENTION HOWEVER NO RESIDUAL WITH G TUBE CHECKS, DISCUSSED WITH DIETARY ORDERS AT HER FACILITY AND ORDERS HERE AT HOSPITAL. DIETARY ADVISED TO REVIEW ORDERS FOR APPROPRIATE DIETARY NEEDS OF PATIENT. PATIENT NOTED UNCOMFORTABLE TODAY, BREATHING INCREASED DURING DAY AT TIMES SPECIALLY DURING WHEN CARE WAS RENDERED.
[2018-05-14 15:12] VITALS: BP 136/46
--- NOTE | 2018-05-14 15:22 | NUR ---
Family concerned about TF, [place] spoke to family per nursing requested. Labs and chart reviewed, pt should resume Nepro with Carb Steady Goal rate 60ml/hr x14 hrs which provides 1512 kcal/d (meets 100% est needs), 68 gm protein (meets 100% est needs), and 610 ml daily water. Water flushes per MD Family requested to resume feeding rate that pt was getting at her retirement. TF runs from 8pm-8am, and 12pm-2pm Addendum: 05/14/18 at [address] Amended: Links added.
[2018-05-14] MEDS ORDERED: NEPRO 1000 ML GT PRN (15:30)
--- NOTE | 2018-05-14 17:46 | NUR ---
PATIENT NOTED TO BE COMFORTABLE NO DISTRESS BREATHING WITH NO DISCOMFORT SLEEPING INTERMITTENTLY, REMAINS ON IV FLUIDS 0.45% NS @ 50CC/HR THRU RIGHT UPPER PICC LINE REMAINS PATENT AND INTACT, HYLTON CATHETER DRAINING WELL. PATIENT REMAINS ON OXYGEN AT 2LITERS VIA NASAL CANULA. PATIENT NOTED TO HAVE SOME DRAINAGE TODAY HOWEVER DRY AROUND GTUBE, SWABBED FOR CULTURE NOTED TO HAVE REDNESS AROUND GTUBE SITE. PATIENT REMAINED STABLE REPORT ENDORSED.
--- NOTE | 2018-05-14 19:10 | NUR ---
RECEIVED PATIENT ASLEEP ON BED, NO SIGNS OF ACUTE DISTRESS NOTES AT THIS TIME. PICC LINE ON KACY, PATENT AND INTACT. ON O2 AT 2LPM VIA NC, TOLERATING WELL. ON G-TUBE, IN PLACE AND PATENT. SAFETY MEASURES INITIATED, PLACED BED ON LOW AND LOCKED POSITION WITH THREE SIDE RAILS UP. BED ALARM ON. CALL RIVER WITHIN REACH
[2018-05-14 20:00] VITALS: BP 115/61
[2018-05-14] MEDS: ATORVASTATIN 10 MG TABLET GT SCH (20:56)
--- NOTE | 2018-05-14 23:30 | NUR ---
PATIENT NOTED TO HAVE SHORTNESS OF BREATH WITH RR OF 25. VITAL SIGNS FOLLOWS O2 SAT OF 97%, BP OF 129/64. TEMP OF 98.6F, HR OF 100. RT PAGED FOR BREATHING TREATMENT. WILL CLOSELY MONITOR. Addendum: 05/15/18 at 0202 by JUN SULLIVAN RN HEAD OF BED ELEVATED.
[2018-05-15] MEDS: BLOOD SUGAR DIAGNOSTIC 1 EACH STRIP VI SCH ×3 (00:03→12:11)
[2018-05-15] MEDS: INSULIN REGULAR, HUMAN 300 UNIT/3 ML VIAL SQ PRN ×3 (00:06→12:13)
--- NOTE | 2018-05-15 00:30 | NUR ---
PATIENT ASLEEP, O2 SAT OF 98%, RR OF 20. NO SIGNS OF ACUTE DISTRESS NOTED AT THIS TIME. BREATHING TREATMENT EFFECTIVE.
[2018-05-15] MEDS: PIPERACILLIN/TAZOBACTAM/D5W 50 ML IV SCH (03:47)
[2018-05-15 04:00] VITALS: BP 134/44
[2018-05-15 07:01] LABS: ALANINE AMINOTRANSFERASE 23 U/L (14-59); ALKALINE PHOSPHATASE 91 U/L (50-136); ASPARTATE AMINOTRANSFERASE 27 U/L (15-37); BILIRUBIN,TOTAL 0.3 mg/dL (0.2-1.0); CARBON DIOXIDE 23 mmol/L (21-32); CHLORIDE 112 mmol/L (98-107); CREATININE 1.3 mg/dL (0.6-1.3); GLUCOSE 221 mg/dL (74-106); MAGNESIUM 2.6 mg/dL (1.8-2.4); POTASSIUM 4.7 mmol/L (3.5-5.1); TOTAL PROTEIN, SERUM 7.2 g/dL (6.4-8.2); UREA NITROGEN, BLOOD 31 mg/dL (7-18); VANCOMYCIN,RANDOM 19.9 ug/mL (18.0-26.0)
[2018-05-15 07:04] LABS: BASOPHILS % (AUTO) 0.4 % (0.0-2.0); EOSINOPHILS # (AUTO) 0.4 K/uL (0.0-0.7); EOSINOPHILS % (AUTO) 4.2 % (0.0-7.0); HEMATOCRIT 29.7 % (31.2-41.9); HEMOGLOBIN 9.8 g/dL (10.9-14.3); LYMPHOCYTES # (AUTO) 1.4 K/uL (20.0-40.0); LYMPHOCYTES % (AUTO) 13.5 % (20.5-51.5); MEAN CORPUSCULAR HEMOGLOBIN 30.5 uug (24.7-32.8); MEAN CORPUSCULAR HGB CONC 33 g/dL (32.3-35.6); MEAN CORPUSCULAR VOLUME 92.2 fL (75.5-95.3); MONOCYTES # (AUTO) 0.7 K/uL (2.0-10.0); MONOCYTES % (AUTO) 6.9 % (0.0-11.0); PLATELET COUNT (AUTO) 192 K/uL (179-408); RED BLOOD CELL COUNT(AUTO) 3.22 MIL/uL (3.63-4.92); WHITE BLOOD COUNT (AUTO) 10.7 K/uL (3.8-11.8)
--- NOTE | 2018-05-15 07:25 | NUR ---
PATIENT RESTING COMFORTABLY ON BED. NO SIGNS OF ACUTE DISTRESS NOTED AT THIS TIME. MIDLINE ON KACY, PATENT AND INTACT. G TUBE INPLACE AND PATENT. HYLTON CATHTER DRAINING WELL VIA GRAVITY WITH CLEAR YELLOW URINE OUTPUT. ON O2 2LPM VIA NC, TOLERATING WELL. SKIN CARE AND PATRICK CARE PROVIDED. SAFE ENVIRONEMTN MAINTAINED AT ALL TIMES. ALL NEEDS ANTICIPATED AND ATTENDED.
[2018-05-15] MEDS: DOCUSATE SODIUM 100 MG/10 ML LIQUID UDC GT SCH (08:37)
[2018-05-15] MEDS: RIVASTIGMINE 4.6 MG PATCH TD SCH (08:37)
[2018-05-15] MEDS: ASCORBIC ACID 500 MG TABLET GT SCH (08:37)
[2018-05-15] MEDS: ACIDOPHILUS/BULGARICUS CHEW TAB GT SCH (08:37)
[2018-05-15] MEDS: POLYVINYL ALCOHOL OPHT DROPS 15 ML BOTTLE EACHEYE SCH ×2 (08:37→12:57)
[2018-05-15] MEDS: CYANOCOBALAMIN 1,000 MCG TABLET GT SCH (08:38)
[2018-05-15] MEDS: CALCIUM CARBONATE 500 MG TABLET GT SCH (08:38)
[2018-05-15] MEDS: LINAGLIPTIN 5 MG TABLET GT SCH (08:38)
[2018-05-15] MEDS: ESCITALOPRAM OXALATE 10 MG TABLET GT SCH (08:38)
[2018-05-15] MEDS: MUPIROCIN 2% OINT 22 GM TUBE TP SCH (08:38)
[2018-05-15] MEDS: FAMOTIDINE 20 MG TABLET GT SCH (08:38)
[2018-05-15] MEDS: Z GUARD REMEDY PASTE 57 GM TUBE TOP SCH (08:39)
[2018-05-15] MEDS: NYSTATIN POWDER 15 GM BOTTLE TOP SCH (08:39)
[2018-05-15] MEDS: MULTIVIT, IRON, MIN NO. 8, FA TABLET GT SCH (08:40)
[2018-05-15] MEDS: INSULIN GLARGINE,HUM 300 UNITS/3 ML CARTRIDGE SQ SCH (09:05)
[2018-05-15 11:00] VITALS: BP 137/54
[2018-05-15] MEDS ORDERED: VANCOMYCIN IV 1 G in PREMIXED 0 EACH IV ONE (12:00)
--- NOTE | 2018-05-15 12:44 | NUR ---
CLINICAL PHARMACY NOTES( VANCOMYCIN DOSING) S: 87 YO female with DX of pneumonia; ordered vancomycin O: BUN/SCR 31/1.3 ; WBC 10.7 TEMP 98.5 Vanco random level: 19.9 with am labs Ht 149.8 cm wt 61.2 kg A/P: Due to advanced age and compromised renal FXN will continue to dose Vancomycin by fall of level. Dosed 1gm vanco x 1 today at 1200 per today's random level. Ordered a random Vanco level tomorrow at 1500. will follow up
--- NOTE | 2018-05-15 14:32 | NUR ---
PATIENT DISCHARGED TO [facility] IN STABLE CONDITION DISCHARGE PAPERS AND INSTRUCTIONS EXPLAINED TO PATIENT'S DAUGHTER OTIS. GTUBE INTACT AND PATENT, HYLTON CATHETER IN PLACE AND DRAINING WELL. MIDLINE IN PLACE INTACT AND PATENT. REPORT GIVEN EARLIER TO ELZA RADER OF [facility]. DC PICS TAKEN AND PLACED IN CHART.LEFT HOSPITAL VIA AMBULANCE.
[2018-05-16] MEDS ORDERED: ALENDRONATE SODIUM 70 MG TABLET PO SCH (06:30)
== END 2018-05-15 14:50 | DRG 177 ==
LOC: ER 14:27 → TELE 16:40 → MED 05-13 13:58
PROVIDERS: ADMIT Internal Medicine; ATTEND Internal Medicine
PROC: 05H533Z Insertion of Infusion Device into Right Subclavian Vein, Percutaneous Approach (ICD-10-PCS; principal; 2018-05-11)
DX: J15.6 Pneumonia due to other Gram-negative bacteria (principal); N17.0 Acute kidney failure with tubular necrosis; G92 Toxic encephalopathy; G23.1 Progressive supranuclear ophthalmoplegia [Steele-Richardson-Olszewski]; E87.0 Hyperosmolality and hypernatremia; J15.9 Unspecified bacterial pneumonia; E78.5 Hyperlipidemia, unspecified; I25.2 Old myocardial infarction; Z88.2 Allergy status to sulfonamides; R13.10 Dysphagia, unspecified; R91.8 Other nonspecific abnormal finding of lung field; Z93.1 Gastrostomy status; D64.9 Anemia, unspecified; E03.9 Hypothyroidism, unspecified; G20 Parkinson's disease; M62.462 Contracture of muscle, left lower leg; M62.461 Contracture of muscle, right lower leg; E11.9 Type 2 diabetes mellitus without complications; K21.9 Gastro-esophageal reflux disease without esophagitis; R19.7 Diarrhea, unspecified; Z74.01 Bed confinement status; I10 Essential (primary) hypertension; Z79.83 Long term (current) use of bisphosphonates; F41.9 Anxiety disorder, unspecified; R74.8 Abnormal levels of other serum enzymes; Z87.01 Personal history of pneumonia (recurrent); Z87.81 Personal history of (healed) traumatic fracture; F03.90 Unspecified dementia, unspecified severity, without behavioral disturbance, psychotic disturbance, mood disturbance, and anxiety; E86.9 Volume depletion, unspecified
CPT/HCPCS: 36415; 70030-TC; 71045; 76770; 83605; 83735; 84100; 84156; 84300; 85025; 85730; 87040; 87070; 87077; 87086; 93005; 94640; A4663; A9150; C1758; G0378; J1815; J2543; J3370; J3490; J3590; J7050